=== PATIENT | male | born 1970 | race Caucasian/White ===

== ENCOUNTER 2021-04-07 21:13 | Emergency (ER) | payer SELFPAY ==
[2021-04-07 22:21] VITALS: BP 145/71; PULSE 110; RESP 16; TEMP 36.2; O2SAT 100; BMI 24.4
--- NOTE | 2021-04-07 22:49 | W.ED.WOUNDLC ---
HPI - Wound/Laceration General: Chief Complaint: Wound/Laceration Stated Complaint: R MIDDLE FINGER/CUT WHILE WHITTLING X 1WK Time Seen by Provider: 04/07/21 22:35 History of Present Illness: HPI narrative: 50-year-old male patient comes in with a laceration to his middle finger on his right hand. Incident occurred about 1 week ago and patient put some duct tape on it after he cut it while whittling a stick. Patient comes in tonight due to inability to get the tape off without hurting too much. Patient is slightly intoxicated but otherwise is doing well. Patient reports he does not remember his last tetanus shot. Review of Systems General: Reports: 10 or more systems reviewed and unremarkable except in HPI and below Skin/Breast: Reports: other (Laceration right middle finger) Physical Exam Const: COMMON NORMALS: no acute distress and patient oriented x3 GENERAL APPEARANCE: cooperative HENMT: COMMON NORMALS: normocephalic and Normal external nose present HEAD & SCALP: normal to inspection and normocephalic NOSE: Normal external nose present Eye: GENERAL EYE: appearance normal, both eyes and all related structures Neck/C-Spine: COMMON NORMALS: full ROM Chest: COMMONS NORMALS: normal inspection of the chest Resp: COMMON NORMALS: normal respiratory effort EFFORT & INSPECTION: Yes able to speak in complete sentences Cardio: COMMON NORMALS: regular rate and regular rhythm RATE: regular rate RHYTHM: regular rhythm GI: COMMON NORMALS: non-tender Extremity: COMMON NORMALS: normal to inspection Neuro: COMMON NORMALS: patient oriented x3 and moves all extremities Psych: COMMON NORMALS: mental status grossly normal and cooperative Skin: NARRATIVE SKIN EXAM: Patient has a superficial laceration to the right middle finger, after removal of the dressing skin was slightly macerated but otherwise intact with a superficial distal laceration. Procedures Nerve Block Nerve Block 1: Local Anesthetic: lidocaine 2% and with epi Amount of anesthesia used (mL): 3 Side: right Nerve Blocks: digital Procedure Successful: Yes Patient Tolerated Procedure: well Complications: none Course ED course: Under digital nerve block tape was removed from the finger. There was some maceration of the skin but no necrosis was observed. Patient has a superficial laceration that was well approximated at the tip of the finger. Vital Signs: Vital signs: Vital Signs Temperature 97.1 F L 04/07/21 22:21 Pulse Rate 110 H 04/07/21 22:21 Respiratory Rate 16 04/07/21 22:21 Blood Pressure 145/71 04/07/21 22:21 Pulse Oximetry 100 04/07/21 22:21 MDM - Wound/Laceration MDM Narrative: Medical decision making narrative: Patient comes in today with concerns of an injury that occurred last week. Patient had tape the finger up with duct tape but was able to remove the duct tape since then. Patient reports pain and discomfort to the distal finger. On exam patient has some exposure of the wound to the distal finger that seems to be well approximated with old dried blood. Patient was unable to tolerate palpation of the or removal of the tape. Differential diagnosis includes necrosis of the skin, wound infection, avulsion of the nail. After a digital block was performed the tape was removed and a noted some mild maceration of the skin without any signs of significant necrosis. Wound seemed to be distal and healed. Patient's tetanus was updated and he was placed on some cephalexin 500 twice a day for the next 7 days for any secondary infection. Patient reported understanding of care plan and need for follow-up or return to the ER. Discharge Plan Discharge Patient Disposition: Home Clinical Impression: Finger laceration Qualifiers: Encounter type: initial encounter Finger: middle finger Damage to nail status: with damage Foreign body presence: without foreign body Laterality: right Qualified Code(s): S61.312A - Laceration without foreign body of right middle finger with damage to nail, initial encounter Condition: Stable Prescriptions: New cephalexin 500 mg capsule 500 mg PO BID 7 Days Qty: 14 RF: 0 Discharge Orders: Discharge ED (Routine); Ordered 04/07/21 Ordered By: Marcello Barclay Discharge Diet: Usual diet Discharge Activity: Increase activity as tolerated Patient Instructions: Finger Laceration (ED), Opioid Safety Activity Restrictions/Additional Instructions: Keep wound clean and dry. Take antibiotics as directed. Use a Band-Aid to cover the wound if needed. Avoid using any more duct tape. Follow-up with primary care. Return to the ER for new concerns. Coding Level of Care Code ED Market Master for Lizbeth Tyson
[2021-04-07] MEDS: cephALEXin 500 mg Capsule PO (23:10)
[2021-04-07] MEDS: bacitracin ointment Pkt 1 EACH TOPICAL (23:10)
[2021-04-07] MEDS: tetanus-dipt-pertussis 0.5 mL SDV IM (23:13)
[2021-04-07 23:20] VITALS: PULSE 110; RESP 20; TEMP 36.7; O2SAT 96
== END 2021-04-07 23:21 | disposition home or self-care (01) ==
PROVIDERS: Emergency Provider Nurse Practitioner Family
DX: S61.312A Laceration without foreign body of right middle finger with damage to nail, initial encounter (principal); W26.0XXA Contact with knife, initial encounter
CPT/HCPCS: 64450; 90471; 90715; 99283

== ENCOUNTER 2021-04-09 14:54 | Emergency (ER) | payer SELFPAY ==
[2021-04-09 15:12] VITALS: BP 144/82; PULSE 108; RESP 18; TEMP 37; O2SAT 95; BMI 23.0
--- NOTE | 2021-04-09 15:32 | ED_ITS ---
Documented by User: MARY Hernandez 04/09/21 16:42 HPI - Extremity Problem General: Chief complaint: Extremity Injury, Upper Stated complaint: R hand finger pain Time Seen by Provider: 04/09/21 15:17 History of Present Illness: HPI Narrative: Swelling right middle finger into the hand worsening since visit here patient did not get antibiotics filled. Patient recently had duct tape that was on his finger that was really tight after his laceration a week ago and the finger swelled. Now is worsening with a large blister over the distal end of the finger from the MIP joint down and hand erythema extending back to the wrist area MD Complaint: extremity pain and extremity swelling Onset (ago): day(s) Pain Consistency: constant Location: right and upper extremity Severity scale (1-10): 6 Quality: aching Radiation: distal Relieving factors: nothing Associated symptoms: Reports no associated symptoms; Deny chest pain, fever(s) or rash Review of Systems Const: Denies: fever(s), chills or body aches Eyes: Denies: change in vision or blurry vision ENMT: Denies: throat pain or nasal congestion Card: Denies: chest pain or dyspnea on exertion Resp: Denies: dyspnea, productive cough or non-productive cough GI: Denies: abdominal pain, nausea or vomiting : Denies: difficulty urinating Musc: Reports: extremity pain (Right middle finger with redness extends from the distal aspect to the wris), extremity swelling, joint pain and joint sw elling Skin/Breast: Denies: rash Neuro: Denies: headache(s) Psych: Denies: anxiety or depression Edi/Lymph: Denies: easy bruising Physical Exam Const: COMMON NORMALS: no acute distress GENERAL APPEARANCE: cooperative Resp: COMMON NORMALS: normal respiratory effort Cardio: RATE: tachycardic Extremity: RIGHT UPPER EXTREMITY: Yes hand & digits (Right middle finger with extreme swelling and large blister that was draine) Right hand and digits: Yes ROM exam (Decreased range of motion joint very swollen DIP and MIP) and Yes other (Large blister was distal aspect from the DIP joint and then about) Skin: OTHER: Redness right middle finger from distal aspect of the way back to the wrist on the dorsal surface Course Vital Signs: Vital signs: Vital Signs Temperature 98.6 F 04/09/21 15:12 Pulse Rate 108 H 04/09/21 15:12 Respiratory Rate 18 04/09/21 15:12 Blood Pressure 144/82 04/09/21 15:12 Pulse Oximetry 95 04/09/21 15:12 MDM - Extremity (Nontraumatic) MDM Narrative: Medical decision making narrative: Discussed case with Dr. Rojas. He has been a call orthopedic on-call. I spoke to Dr. Howard. He advises speak to hand specialist. Lab Data: Labs: Lab Results 04/09/21 Range/Units 15:40 WBC 5.5 (4.0-10.0) 10^3/ uL RBC 3.25 L (4.1-5.3) 10^6/u L Hgb 8.2 L (11.7-16.6) g/dL Hct 26.5 L (42.0-52.0) % MCV 81.5 (80-94) fL MCH 25.2 L (28.0-34.0) pg MCHC 30.9 (30.0-36.0) g/dL RDW 23.4 H (12.1-15.1) % Plt Count 141 (130-400) 10^3/c mm MPV 11.6 H (7.4-10.4) fL Neut % (Auto) 63.7 % Lymph % (Auto) 23.6 % George % (Auto) 11.0 % Eos % (Auto) 0.7 % Baso % (Auto) 0.5 % Neut # (Auto) 3.47 (1.8-7.7) 10^3/u L Lymph # (Auto) 1.3 (0.8-4.8) 10^3/u L [place] # (Auto) 0.6 (0.2-0.9) 10^3/u L Eos # (Auto) 0.0 (0.0-0.8) 10^3/u L Baso # (Auto) 0.0 (0.0-0.1) 10^3/u L Nucleated RBC % (a uto) 0.5 % Nucleated RBCs # 0.0 /100WBC Discharge Plan Discharge Patient Disposition: Home Clinical Impression: Cellulitis of finger of right hand Condition: Stable Prescriptions: New hydrocodone-acetaminophen 5-325 mg tablet 1 tab PO TID PRN (Reason: pain) Qty: 14 RF: 0 doxycycline monohydrate 100 mg capsule 100 mg PO BID 10 Days Qty: 20 RF: 0 Discontinued cephalexin 500 mg capsule 500 mg PO BID 7 Days Qty: 14 RF: 0 Discharge Orders: Discharge ED (Routine); Ordered 04/09/21 Ordered By: Marcello Barclay Discharge Diet: Usual diet Discharge Activity: Increase activity as tolerated Patient Instructions: Cellulitis (ED), Opioid Safety Activity Restrictions/Additional Instructions: Follow-up with medical provider in 48 hours. Take medications as prescribed. Return to the ER or your medical provider if condition worsens. Please read and understand discharge instructions. If any questions ask please. Specialist will be contacting you with an appointment time for follow-up. Soak hand in warm soap water 3 times a day. Sign Out Sign Out Data: Patient Sign Out occurred on 04/09/21 at 17:02. Patient's care was discussed, and care was transferred from to Marcello Barclay. Coding Level of Care Code ED Academic Affairs Vice President for Chg Fwd Exam Expanded Problem Focused Documented by User: MARY Kapoor 04/09/21 18:09 HPI - Extremity Problem General: Chief complaint: Extremity Injury, Upper Stated complaint: R hand finger pain Time Seen by Provider: 04/09/21 15:17 Course Vital Signs: Vital signs: Vital Signs Temperature 98.6 F 04/09/21 15:12 Pulse Rate 108 H 04/09/21 15:12 Respiratory Rate 18 04/09/21 15:12 Blood Pressure 144/82 04/09/21 15:12 Pulse Oximetry 95 04/09/21 15:12 MDM - Extremity (Nontraumatic) MDM Narrative: Medical decision making narrative: 50-year-old male patient comes back today due to increased redness and swelling of a finger on the right hand. To the right middle finger there is increased redness and swelling with redness extending up to the dorsal hand. Patient has significant swelling to the hand. Cap refill is noted distally. Patient admits that he did not get the antibiotics filled on from his last visit. Differential diagnosis includes but not limited to cellulitis, tourniquet effect, tenosynovitis. X-ray of the hand noted no osteomyelitis. Patient was given 1 g of Rocephin and then we contacted hand surgeon. We talked to Dr. Lala at [facility] in [place], he recommended patient be started on warm water soaks with soapy water 3 times a day, and infused with 1 g of Vanco and continued on doxycycline outpatient. Patient should follow-up with primary care in 2 days for recheck. I reviewed this with patient who agreed to plan. We stressed the importance of getting the antibiotic this time and taking it accordingly. Patient reported understanding and agreed to plan. Laboratory values did note a white count of 5.5 patient also had some anemia with 8.2 and 26.5. I believe the anemia is probably secondary to chronic alcohol ingestion. Patient does admit to daily use of alcohol. Lab Data: Labs: Lab Results 04/09/21 Range/Units 15:40 WBC 5.5 (4.0-10.0) 10^3/ uL RBC 3.25 L (4.1-5.3) 10^6/u L Hgb 8.2 L (11.7-16.6) g/dL Hct 26.5 L (42.0-52.0) % MCV 81.5 (80-94) fL MCH 25.2 L (28.0-34.0) pg MCHC 30.9 (30.0-36.0) g/dL RDW 23.4 H (12.1-15.1) % Plt Count 141 (130-400) 10^3/c mm MPV 11.6 H (7.4-10.4) fL Neut % (Auto) 63.7 % Lymph % (Auto) 23.6 % George % (Auto) 11.0 % Eos % (Auto) 0.7 % Baso % (Auto) 0.5 % Neut # (Auto) 3.47 (1.8-7.7) 10^3/u L Lymph # (Auto) 1.3 (0.8-4.8) 10^3/u L George # (Auto) 0.6 (0.2-0.9) 10^3/u L Eos # (Auto) 0.0 (0.0-0.8) 10^3/u L Baso # (Auto) 0.0 (0.0-0.1) 10^3/u L Nucleated RBC % (a uto) 0.5 % Nucleated RBCs # 0.0 /100WBC Discharge Plan Discharge Patient Disposition: Home Clinical Impression: Cellulitis of finger of right hand Condition: Stable Prescriptions: New hydrocodone-acetaminophen 5-325 mg tablet 1 tab PO TID PRN (Reason: pain) Qty: 14 RF: 0 doxycycline monohydrate 100 mg capsule 100 mg PO BID 10 Days Qty: 20 RF: 0 Discontinued cephalexin 500 mg capsule 500 mg PO BID 7 Days Qty: 14 RF: 0 Discharge Orders: Discharge ED (Routine); Ordered 04/09/21 Ordered By: Marcello Barclay Discharge Diet: Usual diet Discharge Activity: Increase activity as tolerated Patient Instructions: Cellulitis (ED), Opioid Safety Activity Restrictions/Additional Instructions: Follow-up with medical provider in 48 hours. Take medications as prescribed. Return to the ER or your medical provider if condition worsens. Please read and understand discharge instructions. If any questions ask please. Specialist will be contacting you with an appointment time for follow-up. Soak hand in warm soap water 3 times a day. Sign Out Sign Out Data: Patient Sign Out occurred on 04/09/21 at 17:02. Patient's care was discussed, and care was transferred from to Marcello Barclay. Coding Level of Care Code ED Academic Affairs Vice President for Lizbeth Tyson Exam Expanded Problem Focused
--- NOTE | 2021-04-09 15:34 | XR_ITS ---
WS: [id number] Exam: XR hand RT min 3V* [id number] Date/Time of Exam: 04/09/2021 3:36 PM Reason For Exam: Rule out osteomyelitis No fracture or dislocation. No sign of bone destruction. Soft tissue swelling of the third finger. Mi nimal degenerative changes of the IP joints. No radiopaque soft tissue foreign bodies are seen. XR/XR hand RT min 3V* [id number] IMPRESSION: 1. No acute fracture or bone destruction. 2. Soft tissue swelling of the third finger.
[2021-04-09] MEDS: cefTRIAXone 1,000 MG in sodium chloride 0.9% (plus) 50 ML 100 MG IV (16:15)
[2021-04-09] MEDS: HYDROcodone-acetaminophen 5-325 mg Tablet 1 TAB PO ×2 (16:39→19:43)
[2021-04-09 17:15] LABS: Basophils % 0.5 %; Eosinophils % 0.7 %; Hematocrit 26.5 % (42.0-52.0); Hemoglobin 8.2 g/dL (11.7-16.6); Lymphocytes # 1.3 10^3/uL (0.8-4.8); Lymphocytes % 23.6 %; Mean Corpuscular HGB Conc 30.9 g/dL (30.0-36.0); Mean Corpuscular Hemoglobin 25.2 pg (28.0-34.0); Mean Corpuscular Volume 81.5 fL (80-94); Mean Platelet Volume 11.6 fL (7.4-10.4); Monocytes # 0.6 10^3/uL (0.2-0.9); Neutrophils # 3.47 10^3/uL (1.8-7.7); Neutrophils % 63.7 %; Nucleated Red Blood Cells % 0.5 %; Platelet Count 141 10^3/cmm (130-400); Red Blood Count 3.25 10^6/uL (4.1-5.3); Red Cell Distribution Width 23.4 % (12.1-15.1); White Blood Count 5.5 10^3/uL (4.0-10.0)
[2021-04-09] MEDS: vancomycin 1,000 MG in sodium chloride 0.9% 250 ML 250 MG IV (18:15)
[2021-04-09 19:57] VITALS: BP 146/80; PULSE 88; RESP 18; O2SAT 100
--- NOTE | 2021-04-10 10:54 | DCPLANNER ---
manager estate had message to speak with patient about getting a follow up appointment for patient with a primary care followup. manager estate is unable to call patient due to no phone number for patient.
--- NOTE | 2021-04-14 16:18 | PC.NURSE ---
unable to call in new prescription for pt based on positive blood cultures. (pt should be discontinuing the doxycycline and starting cipro 500mg PO BID *10days). No new script given because pt's demographics are homeless with no phone number
== END 2021-04-09 19:59 | disposition home or self-care (01) ==
PROVIDERS: Nurse Practitioner Family; Emergency Provider Nurse Practitioner Family
DX: L03.011 Cellulitis of right finger (principal)
CPT/HCPCS: 73130; 85025; 87070; 87077; 87186; 96365; 96367; 99284; J0696; J3370; J7050

== ENCOUNTER 2021-08-10 10:47 | Inpatient (IN) | payer MEDICAID, SELFPAY ==
[2021-08-10 10:53] VITALS: BP 131/99; PULSE 100; RESP 18; TEMP 36.6; O2SAT 99; BMI 20.3
--- NOTE | 2021-08-10 10:56 | W.ED.SOB ---
HPI - SOB/Dyspnea General: Chief Complaint: Shortness of Breath/Dyspnea Stated Complaint: SOB, CP Time Seen by Provider: 08/10/21 10:56 Source: patient Limitations: altered mental status History of Present Illness: HPI Narrative: Mr Flores is a 50-year-old gentleman with unclear past medical history who presents to the emergency department due to shortness of breath and chest pain. Upon initial arrival patient appears clinically intoxicated and endorses alcohol use. He describes a few day history of variable location chest discomfort. There are no specific provoking factors. He has associated shortness of breath he has associated with history of tobaccoism and burning sensation in his throat. Overall intensity symptoms is moderate. The course is unclear. It is unclear if the patient has had similar episodes in the past. No either identified associated symptoms, exacerbating, or alleviating factors. Supplemental information provided by patient's significant other at bedside upon arrival is that patient is a daily drinker and has significant drinking habit, he has had increased falls though these have not been witnessed, he has not had behavior changes like this in the past. Review of Systems General: Reports: ROS unobtainable due to mental status Physical Exam Narrative: EXAM NARRATIVE: GENERAL/CONSTITUTIONAL -chronically ill-appearing. No acute distress. Eyes -no scleral icterus, no conjunctival injection ENMT - Atraumatic external nose and ears. Dry mucous membranes NECK - supple. trachea midline CARDIOVASCULAR - regular rate and rhythm. RESPIRATORY -diminished to auscultation bilaterally. ABDOMEN/GI - Nontender/Nondistended. MSK - Extremities without obvious deformity or tenderness to palpation SKIN - Warm, Dry NEURO - alert and appropriately oriented. Abnormal writhing movements. Moves all extremities equally. Course ED course: - Patient was seen and evaluated by me at bedside - Patient placed on cardiac monitors, IV access obtained - Initial evaluation notable for mental status as noted above limited history. Patient has abnormal muscle movements however does move all extremities without obvious focal neurologic deficit. - Labs notable for no leukocytosis, thrombocytopenia of unclear etiology. Patient does have a contusion to the back however no obvious evidence of bleeding at this time. No acute metabolic derangement to explain patient's mental status, AST greater than ALT consistent with known alcohol abuse. Alcohol level markedly elevated and UDS positive for amphetamines. - Imaging notable for no lobar consolidation or other acute chest abnormality on x-ray. CT head negative for acute intracranial hemorrhage or other explanation to explain patient's symptoms. - Upon reevaluation patient's condition worsening with regards to behavior mental status despite Ativan, additional Ativan ordered. - Based on patient history, evaluation, labs, and imaging as interpreted the most likely cause of the patient's condition is unclear altered mental status and polysubstance abuse. Patient's mental status and behavior is not consistent with alcohol or amphetamine toxidrome and given worsening of mental status during ED stay requires further inpatient evaluation. - The results of ED evaluation were discussed with the patient including plan for admission due to requirement for level of care not available if discharged to prevent significant worsening/deterioration. -Hospitalist service contacted and agreed admit the patient. - Patient was admitted without further deterioration or significant events. Vital Signs: Vital signs: Vital Signs Temperature 98.3 F 08/14/21 11:56 Pulse Rate 68 08/14/21 11:56 Respiratory Rate 16 08/14/21 11:56 Blood Pressure 128/87 08/14/21 11:56 Pulse Oximetry 99 08/14/21 11:56 MDM - SOB/Dyspnea Medical Records: Attestation: I reviewed the patient's medical records. Lab Data: Attestation: I reviewed the patient's lab results. Labs: Lab Results 08/10/21 08/10/21 08/10/21 11:10 11:10 11:10 WBC Cancelled Corrected WBC Cancelled RBC Cancelled Hgb Cancelled Hct Cancelled MCV Cancelled MCH Cancelled MCHC Cancelled RDW Cancelled Plt Count Cancelled MPV Cancelled Gran % Cancelled Neut % (Auto) Cancelled Lymph % (Auto) Cancelled [place] % (Auto) Cancelled Eos % (Auto) Cancelled Baso % (Auto) Cancelled Neut # (Auto) Cancelled Lymph # (Auto) Cancelled [place] # (Auto) Cancelled Eos # (Auto) Cancelled Baso # (Auto) Cancelled Absolute Gran (aut o) Cancelled Nucleated RBC % (a uto) Cancelled Nucleated RBCs # Cancelled Sodium 135 mmol/L L mmol /L (136-145) Potassium 3.2 mmol/L L mmol /L (3.5-5.1) Chloride 98 mmol/L mmol/L (98-107) Carbon Dioxide 18 mmol/L L mmol/ L (22-29) Anion Gap 22.2 H (5-19) BUN 10 mg/dL mg/dL (6-20) Creatinine 0.8 mg/dL mg/dL (0.7-1.2) GFR Calculation 102.3 mL/min mL/m in (90-130) Glucose 105 mg/dL mg/dL (65-115) Calculated Osmolal ity 279 mOsm/kg L mOs m/kg (285-295) Calcium 8.2 mg/dL L mg/dL (8.5-10.5) Total Bilirubin 2.0 mg/dL H mg/dL (0.15-1.2) AST 148 U/L H U/L (0-40) ALT 31 U/L U/L (0-41) Alkaline Phosphata se 149 IU/L H IU/L (40-130) Ammonia Troponin T Baselin e 16 ng/L H ng/L (0-15) Troponin T 120 Min [place] Troponin T Total Protein 8.1 g/dL g/dL (6.6-8.7) Albumin 3.8 g/dL g/dL (3.5-5.2) Globulin 4.3 g/dL g/dL (1.3-4.6) Lipase 31 U/L U/L (13-60) Procalcitonin 0.09 ng/mL ng/mL (0-0.5) Urine Color Urine Appearance Urine pH Ur Specific Gravit y Urine Protein Urine Glucose (UA) Urine Ketones Urine Blood Urine Nitrate Urine Bilirubin Prot Sulfosalicyli c Acd Urine Urobilinogen Ur Leukocyte Theresa ase Salicylates Urine Opiates Scre en Acetaminophen Ur Barbiturates Sc reen Ur Phencyclidine S crn Ur Amphetamines Sc reen U Benzodiazepines Scrn Urine Cocaine Scre en U Marijuana (THC) Screen Ethyl Alcohol 08/10/21 08/10/21 08/10/21 12:55 12:55 12:55 WBC 4.8 10^3/uL 10^3/ uL (4.0-10.0) Corrected WBC RBC 3.94 10^6/uL L 10 ^6/uL (4.1-5.3) Hgb 9.2 g/dL L g/dL (11.7-16.6) Hct 29.4 % L % (42.0-52.0) MCV 74.6 fl L fl (80-94) MCH 23.4 pg L pg (28.0-34.0) MCHC 31.3 g/dL g/dL (30.0-36.0) RDW 24.3 % H % (12.1-15.1) Plt Count 33 10^3/cmm L 10^ 3/cmm (130-400) MPV Not Reportable Gran % Neut % (Auto) 60.9 % % Lymph % (Auto) 26.8 % % [place] % (Auto) 10.9 % % Eos % (Auto) 0.2 % % Baso % (Auto) 1.0 % % Neut # (Auto) 2.90 10^3/uL 10^3 /uL (1.8-7.7) Lymph # (Auto) 1.3 10^3/uL 10^3/ uL (0.8-4.8) [place] # (Auto) 0.5 10^3/uL 10^3/ uL (0.2-0.9) Eos # (Auto) 0.0 10^3/uL 10^3/ uL (0.0-0.8) Baso # (Auto) 0.1 10^3/uL 10^3/ uL (0.0-0.1) Absolute Gran (aut o) Nucleated RBC % (a uto) 0 % % Nucleated RBCs # 0.0 /100WBC /100W BC Sodium Potassium Chloride Carbon Dioxide Anion Gap BUN Creatinine GFR Calculation Glucose Calculated Osmolal ity Calcium Total Bilirubin AST ALT Alkaline Phosphata se Ammonia 59 umol/L umol/L (16-60) Troponin T Baselin e Troponin T 120 Min [place] 13.28 ng/L ng/L (0-15) Delta Troponin T -2.72 ABS# L ABS# (0-10) Total Protein Albumin Globulin Lipase Procalcitonin Urine Color Urine Appearance Urine pH Ur Specific Gravit y Urine Protein Urine Glucose (UA) Urine Ketones Urine Blood Urine Nitrate Urine Bilirubin Prot Sulfosalicyli c Acd Urine Urobilinogen Ur Leukocyte Theresa ase Salicylates Urine Opiates Scre en Acetaminophen Ur Barbiturates Sc reen Ur Phencyclidine S crn Ur Amphetamines Sc reen U Benzodiazepines Scrn Urine Cocaine Scre en U Marijuana (THC) Screen Ethyl Alcohol 08/10/21 08/10/21 08/10/21 12:55 13:25 13:25 WBC Corrected WBC RBC Hgb Hct MCV MCH MCHC RDW Plt Count MPV Gran % Neut % (Auto) Lymph % (Auto) [place] % (Auto) Eos % (Auto) Baso % (Auto) Neut # (Auto) Lymph # (Auto) [place] # (Auto) Eos # (Auto) Baso # (Auto) Absolute Gran (aut o) Nucleated RBC % (a uto) Nucleated RBCs # Sodium Potassium Chloride Carbon Dioxide Anion Gap BUN Creatinine GFR Calculation Glucose Calculated Osmolal ity Calcium Total Bilirubin AST ALT Alkaline Phosphata se Ammonia Troponin T Baselin e Troponin T 120 Min [place] Troponin T Total Protein Albumin Globulin Lipase Procalcitonin Urine Color Straw (Yellow) Urine Appearance Clear (CLEAR) Urine pH 8 H (5-7) Ur Specific Gravit y 1.005 (1.005-1.030) Urine Protein Neg (Negative) Urine Glucose (UA) Norm (Normal) Urine Ketones Negative (Negative) Urine Blood Neg (Negative) Urine Nitrate Negative (Negative) Urine Bilirubin Neg (Negative) Prot Sulfosalicyli c Acd Negative (Negative) Urine Urobilinogen 1 mg/dL H mg/dL (Negative) Ur Leukocyte Theresa ase Negative (Negative) Salicylates 1.7 mg/dL L mg/dL (3-10) Urine Opiates Scre en Negative ng/mL ng /mL (Negative) Acetaminophen < 5.0 ug/mL L ug/ mL (10-30) Ur Barbiturates Sc reen Negative ng/mL ng /mL (Negative) Ur Phencyclidine S crn Negative ng/mL ng /mL (Negative) Ur Amphetamines Sc reen Positive ng/mL H ng/mL (Negative) U Benzodiazepines Scrn Negative ng/mL ng /mL (Negative) Urine Cocaine Scre en Negative ng/mL ng /mL (Negative) U Marijuana (THC) Screen Negative ng/mL ng /mL (Negative) Ethyl Alcohol 309 mg/dL H* mg/d L (0-10) EKG Data^: EKG 1: Attestation: I personally reviewed and interpreted this EKG as follows: EKG Interpretation Date: 08/10/21 EKG interpretation time: 12:15 Interpretation: Twelve-lead EKG shows a regular rhythm at a rate of 87. WV interval 164, QRS duration 119, QTc 441. Normal axis. Interpretation: Sinus rhythm. EKG 2: Attestation: I personally reviewed and interpreted this EKG as follows: EKG Interpretation Date: 08/10/21 EKG interpretation time: 14:23 Interpretation: Twelve-lead EKG shows a regular rhythm with a rate of 86. WV interval 127, QRS duration 117, QTc 452. Normal axis. Interpretation: Sinus rhythm. Discharge Plan Discharge Patient Disposition: Admitted As Inpatient Admit Provider: Magdalena Lemus Condition: Stable Discharge Diet: Regular Discharge Activity: Increase activity as tolerated Coding Level of Care Code ED Mainframe Architect for Lizbeth Tyson
--- NOTE | 2021-08-10 10:59 | XR_ITS ---
WS: [id number] PORTABLE CHEST HISTORY: chest pain COMPARISON: 01/02/2017 Lungs are clear and well expanded. No pleural effusion or pneumothorax. Cardiac size: Normal. Mediastinum/Aorta: Normal mediastinum. No osseous abnormality seen. XR/XR chest 1V portable [id number] IMPRESSION: Unremarkable portable chest.
--- NOTE | 2021-08-10 11:00 | ECG_ITS ---
[facility] Test Date: 2021-08-10 Pat Name: Siva Flores Department: Room: Gender: Male Floor Care Specialist: : 1970 Requested By: Albin Cordero Order Number: [id number] Reading MD: JOHN ROBERTS Measurements Intervals [place] Rate: 87 P: 75 IA: 164 QRS: 55 QRSD: 119 T: 54 QT: 397 QTc: 478 Interpretive Statements SINUS RHYTHM WITH SINUS ARRHYTHMIA MODERATE INTRAVENTRICULAR CONDUCTION DELAY [110+ ms QRS DURATION] Compared to ECG 01/02/2017 10:30:57 Intraventricular conduction delay now present Electronically Signed On 08-10-2021 14:28:55 DIANETICIST by JOHN ROBERTS [id number]
[2021-08-10 11:20] VITALS: BP 131/99; PULSE 104; RESP 21; TEMP 36.7; O2SAT 100
[2021-08-10] MEDS: diphenhydrAMINE 50 mg/mL SDV 1mL 25 MG IVP (11:41)
[2021-08-10] MEDS: LORazepam 2 mg/mL INJ 1 mL 1 MG IVP (11:41)
[2021-08-10] MEDS: sodium chloride 0.9% 500 ML 999 ML IV (11:42)
--- NOTE | 2021-08-10 11:48 | CT_ITS ---
WS: [id number] CT CERVICAL SPINE HISTORY: falls, ams TECHNIQUE: Contiguous 2.5 mm axial imaging performed through the entire cervical spine. Sagittal and coronal reformats also performed. All CT scans at [facility] use at least one of these dose o ptimization techniques: automated exposure control; mA and/or kV adjustment per patient size (include s targeted exams where dose is matched to clinical indication); or iterative reconstruction. DLP: 749.29 mGy.cm COMPARISON: 11/24/2010. There is significant motion artifact throughout the cervical spine. Despite numerous attempts at prev enting patient removing this was unsuccessful. Grossly the alignment is within normal limits. There is mild disc space narrowing at C5-6. No obvious fractures are identified. Craniocervical junction is normally aligned. The lateral masses of C1 and C2 are aligned odontoid is intact. No significant central or foraminal stenosis is identified. Small disc protrusions would easily be ob scured with this amount of motion. There is mild central and bilateral foraminal stenosis at C5-6. CT/CT cervical spin wo con* [id number] IMPRESSION: 1. Quality of this examination is significantly degraded by motion artifact. 2. No obvious fractures are identified.
--- NOTE | 2021-08-10 11:48 | CT_ITS ---
WS: [id number] CT HEAD NONCONTRAST HISTORY: AMS TECHNIQUE: Contiguous axial imaging performed through the brain in 2.5 mm imaging. Bone and soft tiss ue windows. Sagittal and coronal reformats reviewed. All CT scans at [facility] use at least one of these dose optimization techniques: automated exposure control; mA and/or kV adjustment per pa tient size (includes targeted exams where dose is matched to clinical indication); or iterative recon struction. DLP: 803.9 mGy.cm COMPARISON: 11/24/2010. No acute intracranial hemorrhage, midline shift or mass effect. Mild atrophy is more than expected for the patient's age. Very minimal chronic microvascular ischemic disease. There is also mild bilateral cerebellar atrophy which is greater than expected for age. The cerebral and cerebellar atrophy has progressed since 11/24/2010. Ventricles: Normal size with no hydrocephalus. Paranasal sinuses: As visualized are clear. Mastoid air cells: Well pneumatized. Calvarium and scalp: Skull is intact with no soft tissue edema or swelling. CT/CT head wo con* [id number] IMPRESSION: 1. Mild atrophy within the cerebellum and cerebrum, more than expected for the patient's age. 2. No acute hemorrhage or edema.
[2021-08-10 12:02] LABS: Troponin(5th) Baseline 16 ng/L (0-15)
--- NOTE | 2021-08-10 12:17 | PC.NURSE ---
Pt coughing small amounts of blood, including a small blood clot, Dr. Cordero advised
[2021-08-10] MEDS: LORazepam 2 mg/mL INJ 1 mL IVP (12:25)
[2021-08-10 12:31] LABS: Alanine Aminotransferase 31 U/L (0-41); Albumin Level 3.8 g/dL (3.5-5.2); Alkaline Phosphatase 149 IU/L (40-130); Anion Gap 22.2 (5-19); Aspartate Amino Transferase 148 U/L (0-40); Blood Urea Nitrogen 10 mg/dL (6-20); Calcium 8.2 mg/dL (8.5-10.5); Carbon Dioxide 18 mmol/L (22-29); Chloride 98 mmol/L (98-107); Globulin 4.3 g/dL (1.3-4.6); Glomerular Filtration Rate 102.3 mL/min (90-130); Glucose 105 mg/dL (65-115); Lipase 31 U/L (13-60); Osmolality Calculated 279 mOsm/kg (285-295); Potassium 3.2 mmol/L (3.5-5.1); Sodium 135 mmol/L (136-145); Total Protein 8.1 g/dL (6.6-8.7)
[2021-08-10] MEDS: sodium chloride 0.9% 1,000 ML 999 ML IV (12:31)
[2021-08-10 12:38] LABS: Procalcitonin 0.09 ng/mL (0-0.5)
--- NOTE | 2021-08-10 13:00 | ECG_ITS ---
[facility] Test Date: 2021-08-10 Pat Name: Siva Flores Department: Room: Gender: Male Cadd Operator: : 1970 Requested By: Albin Cordero Order Number: [id number] Reading MD: JOHN ROBERTS Measurements Intervals [place] Rate: 86 P: 66 UT: 127 QRS: 40 QRSD: 117 T: 37 QT: 409 QTc: 490 Interpretive Statements SINUS RHYTHM MODERATE INTRAVENTRICULAR CONDUCTION DELAY [110+ ms QRS DURATION] Compared to ECG 08/10/2021 12:12:49 Sinus arrhythmia no longer present Electronically Signed On 08-10-2021 14:31:12 CLEAN ROOM TECHNICIAN by JOHN ROBERTS [email or web address]
[2021-08-10 13:02] LABS: Basophils # 0.1 10^3/uL (0.0-0.1); Eosinophils % 0.2 %; Hematocrit 29.4 % (42.0-52.0); Hemoglobin 9.2 g/dL (11.7-16.6); Lymphocytes # 1.3 10^3/uL (0.8-4.8); Lymphocytes % 26.8 %; Mean Corpuscular HGB Conc 31.3 g/dL (30.0-36.0); Mean Corpuscular Hemoglobin 23.4 pg (28.0-34.0); Mean Corpuscular Volume 74.6 fl (80-94); Monocytes # 0.5 10^3/uL (0.2-0.9); Monocytes % 10.9 %; Neutrophils % 60.9 %; Nucleated Red Blood Cells % 0 %; Platelet Count 33 10^3/cmm (130-400); Red Blood Count 3.94 10^6/uL (4.1-5.3); Red Cell Distribution Width 24.3 % (12.1-15.1); White Blood Count 4.8 10^3/uL (4.0-10.0)
[2021-08-10 13:09] LABS: Slide Review Slide Review Perform
[2021-08-10 13:28] LABS: Ammonia 59 umol/L (16-60)
[2021-08-10 13:43] LABS: Troponin 5 2HR 13.28 ng/L (0-15)
[2021-08-10 13:46] LABS: Troponin 5 2HR Delta -2.72 ABS# (0-10)
[2021-08-10] MEDS: folic acid 1 mg Tablet PO (13:47)
[2021-08-10] MEDS: lidocaine 1% 5 ML in potassium chloride premix 100 ML 25 ML IV (13:49)
[2021-08-10 14:27] LABS: Amphetamines Screen Urine Positive (Negative); Barbiturates Screen Urine Negative (Negative); Benzodiazepines Screen Urine Negative (Negative); Cocaine Screen Urine Negative (Negative); Opiate Screen Urine Negative (Negative); PCP Screen Urine Negative (Negative); THC Screen Urine Negative (Negative)
[2021-08-10 16:05] LABS: Salicylate 1.7 mg/dL (3-10)
[2021-08-10 16:06] LABS: Acetaminophen < 5.0 ug/mL (10-30)
[2021-08-10 16:09] LABS: Alcohol Level 309 mg/dL (0-10)
[2021-08-10] MEDS: haloperidol inj 5 mg/mL INJ 1 mL 2 MG IM (16:13)
[2021-08-10] MEDS: LORazepam 2 mg/mL INJ 1 mL IM (16:14)
[2021-08-10 16:16] LABS: Add Urine Microscopic? NO; Charge for UA Resulting for Rev
[2021-08-10 16:20] LABS: Bilirubin Urine Neg (Negative); Blood Urine Neg (Negative); Glucose Urine UA Norm (Normal); Ketones Urine Negative (Negative); Leukocyte Esterase Urine Negative (Negative); Nitrate Urine Negative (Negative); Protein Urine Neg (Negative); Specific Gravity, Urine 1.005 (1.005-1.030); Sulfosalicylic Acid Urine Negative (Negative); Urine Appearance Clear (CLEAR); Urine Color Straw (Yellow); Urobilinogen Urine 1 mg/dL (Negative); pH Urine 8 (5-7)
[2021-08-10 16:40] VITALS: BP 112/73; PULSE 104; PULSE 109; RESP 26; O2SAT 91
--- NOTE | 2021-08-10 16:42 | PC.NURSE ---
Lab calling; pts blood alcohol level resulting; 309. Dr. Velazquez updated
[2021-08-10 16:51] LABS: ABG PCO2 37.1 mmHg (35-45); ABG PH Result 7.43 (7.35-7.45); Arterial Blood Gas Hematocrit 29.1 % (42-52); Base Excess ABG 0.6 mmol/L (-2.0-2.0); Blood Gas Allen Test Pos; Blood Gas Operator Identificat CAK; Blood Gas Sample Site Radial, right; Blood Gas Sample Type Arterial; HCO3 ABG 24.8 mmol/L (22-26); PO2 ABG 48.7 mmHg (80.0-100.0)
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
[2021-08-10 18:09] LABS: INR 1.36 (0.8-1.2)
[2021-08-10 18:10] LABS: Partial Thromboplastin Time 39.2 SECONDS (23.9-36.7)
[2021-08-10 18:14] LABS: Lactic Sepsis W/Reflex 1.2 mmol/L (0.5-2.2)
--- NOTE | 2021-08-10 18:24 | PC.NURSE ---
Report called to floor, given to MICHAEL Munoz
[2021-08-10 18:30] LABS: Basophils % 0.8 %; Eosinophils % 0.4 %; Hematocrit 29.4 % (42.0-52.0); Hemoglobin 8.9 g/dL (11.7-16.6); Lymphocytes # 1.5 10^3/uL (0.8-4.8); Lymphocytes % 30.7 %; Mean Corpuscular HGB Conc 30.3 g/dL (30.0-36.0); Mean Corpuscular Hemoglobin 23.6 pg (28.0-34.0); Monocytes # 0.6 10^3/uL (0.2-0.9); Monocytes % 11.5 %; Neutrophils # 2.71 10^3/uL (1.8-7.7); Nucleated Red Blood Cells % 0 %; Platelet Count 30 10^3/cmm (130-400); Red Blood Count 3.77 10^6/uL (4.1-5.3); Red Cell Distribution Width 24.6 % (12.1-15.1); White Blood Count 4.9 10^3/uL (4.0-10.0)
[2021-08-10 18:35] LABS: Folate Level 5.2 ng/mL (4.5-32.2)
[2021-08-10 18:36] LABS: NT Pro B Type Natriuretic Pept 39 pg/mL (0-125); Procalcitonin 0.06 ng/mL (0-0.5); Thyroid Stimulating Hormone 0.55 uIU/mL (0.27-4.20); Vitamin B12 821 pg/mL (232-1245)
[2021-08-10 18:47] LABS: Alanine Aminotransferase 27 U/L (0-41); Albumin Level 3.4 g/dL (3.5-5.2); Alkaline Phosphatase 127 IU/L (40-130); Anion Gap 19.8 (5-19); Aspartate Amino Transferase 133 U/L (0-40); Blood Urea Nitrogen 7 mg/dL (6-20); Calcium 7.6 mg/dL (8.5-10.5); Carbon Dioxide 22 mmol/L (22-29); Chloride 102 mmol/L (98-107); Globulin 4.3 g/dL (1.3-4.6); Glomerular Filtration Rate 142.6 mL/min (90-130); Glucose 84 mg/dL (65-115); Lipase 21 U/L (13-60); Magnesium 1.4 mg/dL (1.7-2.3); Osmolality Calculated 287 mOsm/kg (285-295); Phosphorus 5.3 mg/dL (2.5-4.5); Potassium 3.8 mmol/L (3.5-5.1); Sodium 140 mmol/L (136-145); Total Bilirubin 1.8 mg/dL (0.15-1.2); Total Protein 7.7 g/dL (6.6-8.7)
[2021-08-10 18:53] VITALS: BP 135/84; PULSE 87; RESP 18; TEMP 37.2; O2SAT 96
[2021-08-10 20:00] VITALS: BP 151/80; PULSE 88; RESP 18; TEMP 37.1; O2SAT 96
[2021-08-10 20:00] LABS: Troponin 5 6HR 12.48 ng/L (0-15); Troponin 5 6HR Delta -3.52 ng/L (0-12)
[2021-08-10 20:59] LABS: LAB Peripheral Smear Sent for Review
[2021-08-10 21:16] LABS: HIV 1 & 2 Antibody Non-Reactive (Non-Reactiv); HIV 1 & 2 Antigen Non-Reactive (Non-Reactiv)
[2021-08-10 21:21] LABS: Rapid Plasma Reagin Syphilis Nonreactive (Nonreactive)
[2021-08-10 21:26] LABS: Hepatitis A Antibody IgM Non-Reactive (Nonreactive); Hepatitis B Core AB, Total Non-Reactive (Nonreactive); Hepatitis B Surface AB 3.5 (11.5-1000); Hepatitis B Surface Antigen Non-Reactive (Nonreactive); Hepatitis C Virus Antibody Reactive (Nonreactive)
[2021-08-10 22:12] LABS: Fibrinogen 240 mg/dL (174-498); Partial Thromboplastin Time 39.4 SECONDS (23.9-36.7)
[2021-08-10 22:15] LABS: D Dimer 1.34 ug/mIFEU (0-0.59)
[2021-08-11] VITALS (12 sets, daily range): BP systolic 126–162; BP diastolic 64–97; PULSE 74–110; RESP 17–19; TEMP 36.6–38.7; O2SAT 93–98
[2021-08-11] MEDS: LORazepam 2 mg/mL INJ 1 mL IVP ×5 (02:20→17:05)
--- NOTE | 2021-08-11 06:49 | CTR_ITS ---
PROCEDURE INFORMATION: Exam: CTA Chest With Contrast Exam date and time: 08/11/2021 6:49 AM Age: 50 years old Clinical indication: Condition or disease; Liver condition; Cirrhosis; Other: Possible pe; Patient HX: ? Pe/ cirhosis; Additional info: Rule out pe, cirhosis TECHNIQUE: Imaging protocol: Computed tomographic angiography of the chest with contrast. 3D rendering (Not supervised by radiologist): MIP and/or 3D reconstructed images were created by the technologist. Radiation optimization: All CT scans at this facility use at least one of these dose optimization techniques: automated exposure control; mA and/or kV adjustment per patient size (includes targeted exams where dose is matched to clinical indication); or iterative reconstruction. Contrast material: OMNI 350; Contrast volume: 95 ml; Contrast route: INTRAVENOUS (IV); COMPARISON: CR XR chest 1V portable [id number] 08/10/2021 11:15 AM RADIATION DOSE METRICS: Total DLP (mGy-cm): 1352.35 FINDINGS: Pulmonary arteries: Normal. No pulmonary emboli. Aorta: Unremarkable. No aortic aneurysm. No aortic dissection. Lungs: A few small calcified granulomas are seen scattered throughout the right lung. There is ground-glass opacities scattered throughout both lungs in a predominantly peripheral distribution, right greater than left. Pleural spaces: Unremarkable. No pneumothorax. No pleural effusion. Heart: Unremarkable. No cardiomegaly. No pericardial effusion. Lymph nodes: There is a small calcified lymph nodes in the right hilar region, likely sequela of previous granulomatous disease. No lymphadenopathy. Bones/joints: Unremarkable. No acute fracture. Soft tissues: Unremarkable. IMPRESSION: 1. No pulmonary embolus. 2. Commonly reported imaging features of (COVID-19) pneumonia are present. Other processes such as influenza pneumonia and organizing pneumonia, as can be seen with drug toxicity and connective tissue disease, can cause a similar imaging pattern. PROCEDURE INFORMATION: Exam: CT Abdomen And Pelvis With Contrast Exam date and time: 08/11/2021 6:49 AM Age: 50 years old Clinical indication: Condition or disease; Liver condition; Cirrhosis; Other: Possible pe; Patient HX: ? Pe/ cirhosis; Additional info: Rule out pe, cirhosis TECHNIQUE: Imaging protocol: Computed tomography of the abdomen and pelvis with contrast. Radiation optimization: All CT scans at this facility use at least one of these dose optimization techniques: automated exposure control; mA and/or kV adjustment per patient size (includes targeted exams where dose is matched to clinical indication); or iterative reconstruction. Contrast material: OMNI 350; Contrast volume: 95 ml; Contrast route: INTRAVENOUS (IV); COMPARISON: CR XR chest 1V portable [id number] 08/10/2021 11:15 AM RADIATION DOSE METRICS: Total DLP (mGy-cm): 1352.35 FINDINGS: Liver: Enlarged heterogeneous liver with volume redistribution and slight nodular contour, consistent with history of cirrhosis. There is multiple ill-defined areas of decreased attenuation in the liver, concerning for mass lesions. Gallbladder and bile ducts: Cholelithiasis is present. No pericholecystic inflammatory changes to suggest cholecystitis. Pancreas: Normal. No ductal dilation. Spleen: There is tiny calcific densities scattered throughout the spleen, likely sequela of previous granulomatous disease. The spleen is otherwise unremarkable. Adrenal glands: Normal. No mass. Kidneys and ureters: Normal. No hydronephrosis. Stomach and bowel: There is mild wall thickening of the ascending colon, in association with slight stranding of the surrounding fat, which may be secondary to colitis or portal hypertensive enteropathy. Appendix: No evidence of appendicitis. Intraperitoneal space: Trace perihepatic ascites noted. Vasculature: Gastroesophageal varices noted. Lymph nodes: Unremarkable. No enlarged lymph nodes. Urinary bladder: Unremarkable as visualized. Reproductive: Unremarkable as visualized. Bones/joints: Degenerative changes of the spine seen. Soft tissues: Unremarkable. CT/CT angio chest w abd pel w con IMPRESSION: 1. Cirrhotic liver with stigmata of portal hypertension, manifested by gastroesophageal varices and trace perihepatic ascites. 2. Ill-defined areas of decreased attenuation in the liver, concerning for mass lesions. Further evaluation with contrast enhanced abdomen MRI is recommended. 3. Inflammatory changes of the ascending colon, which may be secondary to colitis or portal hypertensive enteropathy. Radiation Dose CTDIVOL = (mGy): DLP = 1352.35~1352.35 (mGy-cm)
[2021-08-11 07:34] LABS: Basophils % 0.8 %; Eosinophils # 0.1 10^3/uL (0.0-0.8); Eosinophils % 1.1 %; Hematocrit 27.9 % (42.0-52.0); Hemoglobin 8.6 g/dL (11.7-16.6); Lymphocytes % 21.6 %; Mean Corpuscular HGB Conc 30.8 g/dL (30.0-36.0); Mean Corpuscular Hemoglobin 23.6 pg (28.0-34.0); Mean Corpuscular Volume 76.6 fl (80-94); Monocytes # 0.5 10^3/uL (0.2-0.9); Monocytes % 9.5 %; Neutrophils # 3.15 10^3/uL (1.8-7.7); Neutrophils % 66.6 %; Nucleated Red Blood Cells % 0 %; Platelet Count 36 10^3/cmm (130-400); Red Blood Count 3.64 10^6/uL (4.1-5.3); Red Cell Distribution Width 24.6 % (12.1-15.1); White Blood Count 4.7 10^3/uL (4.0-10.0)
[2021-08-11 08:29] LABS: Alanine Aminotransferase 25 U/L (0-41); Albumin Level 3.4 g/dL (3.5-5.2); Alkaline Phosphatase 108 IU/L (40-130); Anion Gap 23.4 (5-19); Aspartate Amino Transferase 130 U/L (0-40); Blood Urea Nitrogen 8 mg/dL (6-20); Calcium 7.1 mg/dL (8.5-10.5); Carbon Dioxide 17 mmol/L (22-29); Chloride 103 mmol/L (98-107); Globulin 3.9 g/dL (1.3-4.6); Glomerular Filtration Rate 142.6 mL/min (90-130); Glucose 63 mg/dL (65-115); Magnesium 1.3 mg/dL (1.7-2.3); Osmolality Calculated 286 mOsm/kg (285-295); Potassium 3.4 mmol/L (3.5-5.1); Sodium 140 mmol/L (136-145); Total Bilirubin 2.3 mg/dL (0.15-1.2); Total Protein 7.3 g/dL (6.6-8.7)
[2021-08-11 08:30] LABS: Chol HDL Ratio 3.97 mg/dL (1.0-5.00); Cholesterol 131 mg/dL (0-200); HDL Cholesterol 33 mg/dL (60-100); LDL Cholesterol Calculated 82 mg/dL (50-129); LDL HDL Ratio 2.48 RATIO (0.00-3.22); Triglycerides 79 mg/dL (0-150)
[2021-08-11 08:33] LABS: Estmated Average Glucose 100; Hemoglobin A1C 5.1 % (4.0-6.0)
[2021-08-11] MEDS: iohexol 350 mg/mL 100 mL Btl IV (08:47)
[2021-08-11] MEDS: folic acid 1 mg Tablet PO (09:00)
[2021-08-11] MEDS: multivitamin therapeutic Tablet 1 TAB PO (09:00)
[2021-08-11] MEDS: thiamine 100 mg Tablet PO (09:00)
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
[2021-08-11 13:57] LABS: Iron 68 ug/dL (59-158); Percent Saturation 21.2 % (20-50); Total Iron Binding Capacity 320 mcg/dl; Transferrin 268 mg/dL (200-360); Unsaturated Iron Binding 252 ug/dL (112-347)
[2021-08-11 14:04] LABS: Tumor Marker Alpha Fetoprotein 5.7 ng/mL (0-8.3)
[2021-08-11] MEDS: spironolactone 25 mg Tablet PO (14:20)
[2021-08-11] MEDS: lactulose oral liq 20 gm/30 mL UDC PO (14:20)
[2021-08-11] MEDS: FUROsemide 20 mg Tablet PO (14:20)
[2021-08-11] MEDS: magnesium sulfate premix 4 GM/100 ML PREMIX IV (14:29)
[2021-08-11] MEDS: potassium chloride oral liq 20 mEq/15 mL UDC 40 MEQ PO (14:42)
[2021-08-11 16:47] LABS: SARS Covid-2 Antigen Negative (Negative)
[2021-08-11 19:09] LABS: Ferritin 76 ng/mL (30-400)
[2021-08-11] MEDS: piperacillin-tazobactam 3.375 GM in sodium chloride 0.9% (plus) 50 ML IV (20:25)
[2021-08-11] MEDS: acetaminophen 325 mg Tablet 650 MG PO (22:35)
[2021-08-12] MEDS: lactulose oral liq 20 gm/30 mL UDC PO ×2 (03:34→14:48)
[2021-08-12] MEDS: piperacillin-tazobactam 3.375 GM in sodium chloride 0.9% (plus) 50 ML IV ×3 (03:34→18:50)
[2021-08-12 04:00] VITALS: BP 140/90; PULSE 73; RESP 19; TEMP 37; O2SAT 95
[2021-08-12 06:58] LABS: Basophils % 0.6 %; Eosinophils # 0.2 10^3/uL (0.0-0.8); Eosinophils % 3.8 %; Hematocrit 28.9 % (42.0-52.0); Hemoglobin 9.2 g/dL (11.7-16.6); Lymphocytes # 1.2 10^3/uL (0.8-4.8); Lymphocytes % 23.9 %; Mean Corpuscular HGB Conc 31.8 g/dL (30.0-36.0); Mean Corpuscular Volume 75.5 fl (80-94); Monocytes # 0.5 10^3/uL (0.2-0.9); Monocytes % 10.9 %; Neutrophils % 60.4 %; Nucleated Red Blood Cells % 0 %; Platelet Count 36 10^3/cmm (130-400); Red Blood Count 3.83 10^6/uL (4.1-5.3); Red Cell Distribution Width 24.5 % (12.1-15.1)
[2021-08-12 07:15] LABS: Glucose Point of Care 127 mg/dL (70-110)
[2021-08-12 07:33] VITALS: BP 120/67; PULSE 71; RESP 18; TEMP 36.9; O2SAT 97
[2021-08-12 07:34] LABS: Alanine Aminotransferase 23 U/L (0-41); Albumin Level 3.3 g/dL (3.5-5.2); Alkaline Phosphatase 138 IU/L (40-130); Anion Gap 13.3 (5-19); Aspartate Amino Transferase 108 U/L (0-40); Blood Urea Nitrogen 8 mg/dL (6-20); Carbon Dioxide 25 mmol/L (22-29); Chloride 98 mmol/L (98-107); Creatinine Clr Calc Pharmacy 131.7421; Globulin 4.4 g/dL (1.3-4.6); Glomerular Filtration Rate 119.4 mL/min (90-130); Glucose 108 mg/dL (65-115); Magnesium 1.9 mg/dL (1.7-2.3); Osmolality Calculated 275 mOsm/kg (285-295); Potassium 3.3 mmol/L (3.5-5.1); Sodium 133 mmol/L (136-145); Total Bilirubin 3.3 mg/dL (0.15-1.2); Total Protein 7.7 g/dL (6.6-8.7)
[2021-08-12] MEDS: spironolactone 25 mg Tablet PO (08:27)
[2021-08-12] MEDS: FUROsemide 20 mg Tablet PO (08:27)
[2021-08-12] MEDS: thiamine 100 mg Tablet PO (08:27)
[2021-08-12] MEDS: multivitamin therapeutic Tablet 1 TAB PO (08:27)
[2021-08-12] MEDS: folic acid 1 mg Tablet PO (08:27)
[2021-08-12 11:00] LABS: Glucose Point of Care 155 mg/dL (70-110)
[2021-08-12 11:41] VITALS: BP 140/83; PULSE 68; RESP 18; TEMP 37.6; O2SAT 97
[2021-08-12 15:14] VITALS: BP 135/72; PULSE 72; RESP 16; TEMP 36.9; O2SAT 97
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
[2021-08-12] MEDS: potassium chloride oral liq 20 mEq/15 mL UDC 40 MEQ PO (16:27)
[2021-08-12 16:44] LABS: Glucose Point of Care 174 mg/dL (70-110)
[2021-08-12 19:36] VITALS: BP 138/86; PULSE 69; RESP 18; TEMP 37; O2SAT 97
[2021-08-12 21:06] LABS: Glucose Point of Care 130 mg/dL (70-110)
[2021-08-13] VITALS (7 sets, daily range): BP systolic 113–145; BP diastolic 72–91; PULSE 61–76; RESP 16–18; TEMP 36.5–36.9; O2SAT 96–99
[2021-08-13] MEDS: lactulose oral liq 20 gm/30 mL UDC PO ×2 (03:25→16:33)
[2021-08-13] MEDS: piperacillin-tazobactam 3.375 GM in sodium chloride 0.9% (plus) 50 ML IV ×3 (03:25→18:01)
[2021-08-13 06:44] LABS: Glucose Point of Care 117 mg/dL (70-110)
[2021-08-13 07:03] LABS: Basophils % 0.5 %; Eosinophils # 0.2 10^3/uL (0.0-0.8); Eosinophils % 3.4 %; Hematocrit 33.2 % (42.0-52.0); Lymphocytes # 1.4 10^3/uL (0.8-4.8); Lymphocytes % 24.2 %; Mean Corpuscular HGB Conc 30.1 g/dL (30.0-36.0); Mean Corpuscular Hemoglobin 24.3 pg (28.0-34.0); Mean Corpuscular Volume 80.6 fl (80-94); Monocytes # 0.7 10^3/uL (0.2-0.9); Monocytes % 11.7 %; Neutrophils # 3.36 10^3/uL (1.8-7.7); Neutrophils % 59.8 %; Nucleated Red Blood Cells % 0.4 %; Platelet Count 41 10^3/cmm (130-400); Red Blood Count 4.12 10^6/uL (4.1-5.3); Red Cell Distribution Width 25.1 % (12.1-15.1); White Blood Count 5.6 10^3/uL (4.0-10.0)
[2021-08-13 07:22] LABS: Blood Urea Nitrogen 7 mg/dL (6-20); Calcium 8.1 mg/dL (8.5-10.5); Carbon Dioxide 18 mmol/L (22-29); Chloride 99 mmol/L (98-107); Glomerular Filtration Rate 227.7 mL/min (90-130); Glucose 92 mg/dL (65-115); Osmolality Calculated 268 mOsm/kg (285-295); Sodium 130 mmol/L (136-145)
[2021-08-13 07:23] LABS: Anion Gap 17.4 (5-19); Potassium 4.4 mmol/L (3.5-5.1)
--- NOTE | 2021-08-13 07:40 | US_ITS ---
WS: [id number] INDICATION: Ascites TECHNIQUE: Four-quadrant ultrasound FINDINGS: No significant ascites. Partially visualized hepatomegaly with coarse hepatic echotexture. US/US abdomen lmt fluid [id number] IMPRESSION: No significant ascites visualized
--- NOTE | 2021-08-13 09:00 | PM.PN ---
Subjective Subjective: Interval history: This is a late entry note for 08/13 No overnight events, Patient was waiting for paracentesis, however it was canceled for lack of drainable fluid, MRI of liver done as well Patient is awake and alert, afebrile Vitals/I&O/Wt Last Vital Signs Temp 97.9 F 08/14/21 04:00 Pulse 67 08/14/21 04:00 Resp 17 08/14/21 04:00 BP 116/60 08/14/21 04:00 Pulse Ox 99 08/14/21 04:00 08/13/21 08/14/21 08/14/21 22:59 06:59 14:59 Intake Total 340 / 630 650 / 1280 Balance 340 / 630 650 / 1280 Physical Exam Narrative: EXAM NARRATIVE: Patient was sitting in his bed without any active complaints or distress S1, S2 Abdomen slightly distended Hepatomegaly No active signs of acute liver decompensation No asterixis He was awake and alert Nonfocal neuro exam No signs of meningitis Awake and alert and cooperative during my evaluation Saturating well on room air Data : 08/13/21 05:58 08/13/21 05:58 A&P Assessment and plan (1) Encephalopathy: Status: Acute (2) Tremor of both hands: Status: Acute (3) Hepatitis C antibody positive in blood: Status: Acute (4) Elevated INR: Status: Acute (5) Ascites: Status: Acute (6) Portal hypertension: Status: Acute (7) Liver cirrhosis: Status: Acute (8) Ethanol causing toxic effect: Status: Acute (9) Thrombocytopenia: Status: Acute (10) Nicotine dependence: Status: Acute (11) Altered mental status: Status: Acute (12) Fall: Status: Acute (13) Amphetamine abuse: Status: Acute (14) Alcohol abuse: Status: Acute Additional A&P Information Encephalopathy related to drug abuse, alcohol intoxication Has been diagnosed with hepatitis C induced liver cirrhosis Will need outpatient therapy with Dr. 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 Paracentesis canceled as there was no drainable fluid, MRI abdomen for hepatic mass, Continue diuretics De-escalate antibiotics as he has stayed afebrile Full code Plan to discharge in next 48 hours DVT prophylaxis contraindicated secondary to thrombocytopenia No active signs of withdrawal, has mild tremors of his hands bilaterally Attestations Medical Necessity Statement*: Anticipating discharge in next 48 hours Time Spent in Patient Care: less than 15 minutes Coding Level of Care Code Acute Log Processor Operator for Chg Fwd Diagnoses Encephalopathy G93.40 Tremor of both hands R25.1 Hepatitis C antibody positive in blood R76.8 Elevated INR R79.1 Ascites R18.8 Portal hypertension K76.6 Liver cirrhosis K74.60 Ethanol causing toxic effect T51.0X1A Thrombocytopenia D69.6 Nicotine dependence F17.200 Altered mental status R41.82 Fall W19.XXXA Amphetamine abuse F15.10 Alcohol abuse F10.10
[2021-08-13] MEDS: FUROsemide 20 mg Tablet PO (09:17)
[2021-08-13] MEDS: folic acid 1 mg Tablet PO (09:17)
[2021-08-13] MEDS: thiamine 100 mg Tablet PO (09:17)
[2021-08-13] MEDS: spironolactone 25 mg Tablet PO (09:17)
[2021-08-13] MEDS: multivitamin therapeutic Tablet 1 TAB PO (09:17)
[2021-08-13 12:02] LABS: Glucose Point of Care 168 mg/dL (70-110)
[2021-08-13 12:38] LABS: Lyme AB Screen <0.90 index
[2021-08-13] MEDS: acetaminophen 325 mg Tablet 650 MG PO (12:38)
--- NOTE | 2021-08-13 13:21 | MR_ITS ---
WS: [id number] INDICATION: Abdominal pain. Liver lesions on CT. TECHNIQUE: MRI of the abdomen without and with gadolinium enhancement. Axial T2, dual Echo, axial 2-D fiesta, coronal 2-D fiesta, and pre and post gadolinium fat saturation imaging was obtained. FINDINGS: Correlation CTA August 11, 2021. Hepatomegaly with cirrhosis. Evidence of portal hypertension with perihepatic ascites. Cholelithiasis . Associated gastroesophageal varices. Diffuse low-attenuation nodules in both hepatic lobes unchanged since the recent CT. These measure 2- 3 cm in maximum dimension. These areas demonstrate decreased signal on the T2 imaging. No significant dropout on the out of phase imaging. Lesions demonstrate background parenchymal signal on the T1 jack ging. Hepatic lesions demonstrate no significant enhancement on the arterial and delayed imaging. Adrenal glands are normal. Normal renal parenchymal enhancement. A few prominent lymph nodes in the p blossom hepatis unchanged. Normal pancreas. Common bile duct appears normal. Normal renal parenchymal en hancement. Normal splenic vein. Normal GE junction. Normal caliber upper abdominal aorta. MR/MR abdomen wo/w con* [id number] IMPRESSION: 1. Hepatomegaly with diffuse low signal nodules throughout both hepatic lobes. No significant enhancement. 2. Findings most compatible with regenerative macro nodules in the setting of cirrhotic liver. Early dysplastic nodules difficult to exclude and recommend an nual surveillance MRI. 3. In addition, considering the size of the lesions and initial diagnosis cons ider ultrasound-guided parenchymal liver biopsy
[2021-08-13 17:29] LABS: Glucose Point of Care 162 mg/dL (70-110)
[2021-08-13 21:16] LABS: Glucose Point of Care 133 mg/dL (70-110)
[2021-08-13 21:34] LABS: HEP C RNA Viral Load Quant 295000 IU/mL (NOT DETECTED); HEP C RNA Viral Load Quant 5.47 Log IU/mL (NOT DETECTED)
--- NOTE | 2021-08-13 22:18 | PC.NURSE ---
Addendum entered by Giovanna Camacho RN 08/14/21 02:06: Entered on incorrect patient. Original Note: Patient did not have an IV upon my arrival on shift.
[2021-08-14] VITALS: BP 119/67; PULSE 65; RESP 17; TEMP 36.6; O2SAT 98
[2021-08-14] MEDS: piperacillin-tazobactam 3.375 GM in sodium chloride 0.9% (plus) 50 ML IV (01:55)
[2021-08-14] MEDS: LORazepam 2 mg Tablet PO (02:11)
[2021-08-14 04:00] VITALS: BP 116/60; PULSE 67; RESP 17; TEMP 36.6; O2SAT 99
[2021-08-14 06:45] LABS: Glucose Point of Care 220 mg/dL (70-110)
[2021-08-14 06:52] LABS: Basophils % 0.7 %; Eosinophils # 0.2 10^3/uL (0.0-0.8); Eosinophils % 3.5 %; Hematocrit 29.4 % (42.0-52.0); Hemoglobin 9.3 g/dL (11.7-16.6); Lymphocytes # 1.3 10^3/uL (0.8-4.8); Lymphocytes % 23.2 %; Mean Corpuscular HGB Conc 31.6 g/dL (30.0-36.0); Mean Corpuscular Hemoglobin 24.5 pg (28.0-34.0); Mean Corpuscular Volume 77.6 fl (80-94); Monocytes # 0.8 10^3/uL (0.2-0.9); Monocytes % 13.8 %; Neutrophils # 3.29 10^3/uL (1.8-7.7); Neutrophils % 58.3 %; Nucleated Red Blood Cells % 0 %; Platelet Count 75 10^3/cmm (130-400); Red Blood Count 3.79 10^6/uL (4.1-5.3); Red Cell Distribution Width 24.9 % (12.1-15.1); White Blood Count 5.7 10^3/uL (4.0-10.0)
[2021-08-14 07:18] LABS: Alanine Aminotransferase 19 U/L (0-41); Albumin Level 3.5 g/dL (3.5-5.2); Alkaline Phosphatase 134 IU/L (40-130); Anion Gap 15.9 (5-19); Aspartate Amino Transferase 72 U/L (0-40); Blood Urea Nitrogen 10 mg/dL (6-20); Calcium 7.6 mg/dL (8.5-10.5); Carbon Dioxide 18 mmol/L (22-29); Chloride 98 mmol/L (98-107); Globulin 3.7 g/dL (1.3-4.6); Glomerular Filtration Rate 142.6 mL/min (90-130); Glucose 186 mg/dL (65-115); Osmolality Calculated 270 mOsm/kg (285-295); Potassium 3.9 mmol/L (3.5-5.1); Sodium 128 mmol/L (136-145); Total Bilirubin 3.5 mg/dL (0.15-1.2); Total Protein 7.2 g/dL (6.6-8.7)
[2021-08-14 07:20] VITALS: BP 106/67; PULSE 67; RESP 16; TEMP 36.8; O2SAT 100
[2021-08-14 07:37] LABS: Quest SARS-CoV-2 RNA NOT DETECTED (NOT DETECTED)
[2021-08-14] MEDS: folic acid 1 mg Tablet PO (07:39)
[2021-08-14] MEDS: spironolactone 25 mg Tablet PO (07:39)
[2021-08-14] MEDS: FUROsemide 20 mg Tablet PO (07:39)
[2021-08-14] MEDS: multivitamin therapeutic Tablet 1 TAB PO (07:39)
[2021-08-14] MEDS: thiamine 100 mg Tablet PO (07:40)
[2021-08-14 08:01] LABS: Add RBC Morph Yes; Slide Review Slide Review Perform
[2021-08-14 08:03] LABS: Anisocytosis 1+; Dimorphic RBC 1+; Giant Platelets Trace; Ovalocytes Trace; Poikilocytosis 1+; Polychromasia Trace; RBC Morph Comp Yes; Target Cells 1+
[2021-08-14 11:26] VITALS: BP 128/87; PULSE 68; RESP 16; TEMP 36.8; O2SAT 99
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
[2021-08-14 11:56] VITALS: BP 128/87; PULSE 68; RESP 16; TEMP 36.8; O2SAT 99
[2021-08-14 12:05] LABS: Glucose Point of Care 133 mg/dL (70-110)
[2021-08-16 15:29] LABS: RMSF IGG DETECTED; RMSF IGM NOT DETECTED
[2021-08-16 17:28] LABS: E. Chaffeensis AB IGG <1:64; E. Chaffeensis AB IGM <1:20
[2021-08-17 02:53] LABS: Hepatitis C Genotype RNA 1a
== END 2021-08-14 11:56 | disposition home or self-care (01) | DRG 897 ==
LOC: ER 16:44 → MEDSURG 17:40
PROVIDERS: Admitting Provider Internal Medicine; Emergency Provider Emergency Medicine; Visit Provider Internal Medicine
DX: F10.229 Alcohol dependence with intoxication, unspecified (principal); K76.6 Portal hypertension; I85.10 Secondary esophageal varices without bleeding; E46 Unspecified protein-calorie malnutrition; K70.31 Alcoholic cirrhosis of liver with ascites; F15.10 Other stimulant abuse, uncomplicated; Y90.8 Blood alcohol level of 240 mg/100 ml or more; K72.90 Hepatic failure, unspecified without coma; B19.20 Unspecified viral hepatitis C without hepatic coma; W19.XXXA Unspecified fall, initial encounter; D69.6 Thrombocytopenia, unspecified; F17.210 Nicotine dependence, cigarettes, uncomplicated; T51.0X1A Toxic effect of ethanol, accidental (unintentional), initial encounter; E16.2 Hypoglycemia, unspecified; Z68.20 Body mass index [BMI] 20.0-20.9, adult
CPT/HCPCS: 36415; 36416; 36600; 49083; 51701; 70450; 71045; 71275; 72125; 74177; 74183; 76705; 80048; 80053; 80061; 80306; 80307; 80500; 81003; 82105; 82140; 82607; 82728; 82746; 82803; 82962; 83036; 83540; 83550; 83605; 83690; 83735; 83880; 84100; 84145; 84443; 84466; 84484; 85025; 85362; 85378; 85384; 85610; 85730; 86140; 86592; 86618; 86666; 86705; 86706; 86709; 86757; 86803; 87040; 87340; 87426; 87522; 87635; 87806; 87902; 93005; 96365; 96366; 96367; 96372; 96375; 96376; 97116; 97161; 97165; 97535; 99291; A9579; J1200; J1630; J2060; J2543; J3411; J3475; J3480; J7030; J7040; Q9967

== ENCOUNTER → 2021-08-27 10:50 | Outpatient (BNVA) | payer MEDICAID, SELFPAY | PROVIDERS: Visit Provider Nurse Practitioner Family | DX: K74.60 Unspecified cirrhosis of liver (principal); D64.9 Anemia, unspecified; K76.89 Other specified diseases of liver; K76.9 Liver disease, unspecified; Z91.89 Other specified personal risk factors, not elsewhere classified | CPT/HCPCS: 80053; 82105; 83550 ==

== ENCOUNTER → 2021-12-25 15:12 | Outpatient (BNVA) | payer MEDICAID, SELFPAY | PROVIDERS: PCP Internal Medicine; Visit Provider Internal Medicine | DX: R41.0 Disorientation, unspecified (principal) | CPT/HCPCS: 80053; 82140; 85025 ==

== ENCOUNTER 2022-01-01 17:30 | Inpatient (IN) | payer MEDICAID, SELFPAY ==
[2022-01-01 17:39] VITALS: BP 137/94; PULSE 110; RESP 19; TEMP 36.8; O2SAT 96; BMI 27.1
--- NOTE | 2022-01-01 17:59 | CTR_ITS ---
PROCEDURE INFORMATION: Exam: CT Head Without Contrast Exam date and time: 01/01/2022 6:28 PM Age: 51 years old Clinical indication: Altered mental status/memory loss; Additional info: AMS TECHNIQUE: Imaging protocol: Computed tomography of the head without contrast. Radiation optimization: All CT scans at this facility use at least one of these dose optimization techniques: automated exposure control; mA and/or kV adjustment per patient size (includes targeted exams where dose is matched to clinical indication); or iterative reconstruction. COMPARISON: CT head wo con* [id number] 08/10/2021 12:39 PM RADIATION DOSE METRICS: Total DLP (mGy-cm): 945.54 FINDINGS: Brain: There is moderate cerebral atrophy. No intracranial hemorrhage. No midline shift of brain. Preservation of crane and white matter interfaces. Cerebral ventricles: No ventriculomegaly. Paranasal sinuses: Partially visible rounded lesion within the left maxillary sinus representing mucous retention cyst or polyp. Mastoid air cells: Visualized mastoid air cells are well aerated. Bones/joints: Unremarkable. No acute fracture. Soft tissues: Unremarkable. CT/CT head wo con* [id number] IMPRESSION: 1. No acute intracranial abnormality identified. 2. No change from comparison.
--- NOTE | 2022-01-01 17:59 | XRR_ITS ---
PROCEDURE INFORMATION: Exam: XR Chest Exam date and time: 01/01/2022 6:39 PM Age: 51 years old Clinical indication: Shortness of breath; Additional info: Eval for pna TECHNIQUE: Imaging protocol: XR of the chest. Views: 1 view. COMPARISON: CR XR chest 1V portable [id number] 08/10/2021 11:15 AM FINDINGS: Lungs: Unremarkable. No consolidation. Pleural spaces: Unremarkable. No pleural effusion. No pneumothorax. Heart/Mediastinum: Unremarkable. No cardiomegaly. Bones/joints: Unremarkable. XR/XR chest 1V portable [id number] IMPRESSION: No acute findings.
--- NOTE | 2022-01-01 17:59 | CTR_ITS ---
PROCEDURE INFORMATION: Exam: CT Abdomen And Pelvis With Contrast Exam date and time: 01/01/2022 6:33 PM Age: 51 years old Clinical indication: Patient HX: Increased ammonia, hepatic encephalopathy, liver dx; Additional info: Eval for pathologies TECHNIQUE: Imaging protocol: Computed tomography of the abdomen and pelvis with contrast. Radiation optimization: All CT scans at this facility use at least one of these dose optimization techniques: automated exposure control; mA and/or kV adjustment per patient size (includes targeted exams where dose is matched to clinical indication); or iterative reconstruction. Contrast material: OMNI 350; Contrast volume: 95 ml; Contrast route: INTRAVENOUS (IV); COMPARISON: MR abdomen wo/w con* [id number] 08/13/2021 10:48 AM RADIATION DOSE METRICS: Total DLP (mGy-cm): 1457.58 FINDINGS: Lungs: Right lower lobe calcified granuloma. Liver: Diffusely inhomogenous cirrhotic appearing liver. No focal lesion identified. Gallbladder and bile ducts: Small calcified stones in the gallbladder. Mild gallbladder wall enhancement with a small amount of pericholecystic fluid. Pancreas: Normal. No ductal dilation. Spleen: Normal. No splenomegaly. Adrenal glands: Normal. No mass. Kidneys and ureters: Normal. No hydronephrosis. Stomach and bowel: The stomach is decompressed and within normal limits. Appendix: No evidence of appendicitis. Intraperitoneal space: Mild mesenteric edema. Trace fluid in the pericolic gutters. No free peritoneal air. Arteries: Unremarkable. No abdominal aortic aneurysm. Veins: Recanalized umbilical vein. Splenic hilar and gastroesophageal varices. Lymph nodes: Unremarkable. No enlarged lymph nodes. Urinary bladder: Unremarkable as visualized. Reproductive: Unremarkable as visualized. Bones/joints: Unremarkable. No acute fracture. Soft tissues: Small fat containing inguinal hernias. Small fat containing umbilical hernia. 1.7 cm density in the subcutaneous fat of the right buttock regions most likely a small contusion or hematoma. CT/CT abdomen pelvis w con* [id number] IMPRESSION: 1. Inhomogenous cirrhotic liver. 2. Portal venous hypertension with splenic hilar and gastroesophageal varices. 3. Mild gallbladder wall enhancement with pericholecystic fluid. Cholecystitis is not excluded.
--- NOTE | 2022-01-01 18:08 | W.ED.GENADLT ---
HPI - General Adult General: Chief complaint: Altered Mental Status Stated complaint: Amonia levels are high Time Seen by Provider: 01/01/22 17:59 History of Present Illness: Patient is a 51-year-old male with history of cirrhosis secondary to alcohol abuse and hepatitis C presenting to the emergency room for increasing confusion for the last 3 weeks. The last 3 days patient has been stuck at home has been unable to take care of himself. Patient drinks alcohol daily. Per , patient has been lying bedside reporting that he is feels like his leg is weak and has not been able to get up. Patient appears to be more confused and disoriented in the last few days. Patient was recently started on Rifaxan by Dr. Torres without any improvement in symptoms. Patient's talked with Dr. Grider today was told to bring patient to the emergency room for further evaluation of acute hepatic encephalopathy. denies any fever chills, abdominal pain, nausea/vomiting, diarrhea melena or hematochezia. denies any hematemesis. Onset:chronically 3 weeks, acutely x 3 days Duration:ongoing Location:home Severity:moderate Associated symptoms: Deny chest pain, dyspnea, nausea, rash, palpitations or vomiting Review of Systems Const: Denies: fever(s) or chills Eyes: Denies: change in vision ENMT: Denies: mouth pain Card: Denies: chest pain or palpitations Resp: Denies: dyspnea or non-productive cough GI: Denies: abdominal pain, nausea, vomiting or diarrhea : Denies: dysuria Musc: Denies: extremity pain Skin/Breast: Denies: rash or new lesions Neuro: Reports: other (+confusion); Denies: weakness in extremities Psych: Reports: other (Normal mood) Edi/Lymph: Denies: easy bruising PFS ED PFSH: Medical History (Updated 01/01/22 @ 19:11 by Stephy Celis MD) Alcohol abuse Amphetamine abuse Ascites Cirrhosis Elevated d-dimer Elevated INR Portal hypertension Social History Smoking and tobacco status: current every day smoker Physical Exam Const: COMMON NORMALS: alert HENMT: COMMON NORMALS: atraumatic HEAD & SCALP: atraumatic MOUTH: moist mucous membranes abnormal Eye: COMMON NORMALS: EOMs intact bilaterally and conjunctivae normal CONJUNCTIVA: Yes conjunctivae normal Neck/C-Spine: COMMON NORMALS: full ROM and supple Resp: COMMON NORMALS: normal respiratory effort and clear to auscultation bilaterally AUSCULTATION: clear to auscultation bilaterally Cardio: RATE: tachycardic GI: COMMON NORMALS: Soft to palpation and non-tender PALPATION: Yes Soft to palpation OTHER: +Mild abdominal distension, no focal TTP. NO guarding rebound, guarding, rigidity. No CVA tenderness to percussion. Neg Khan/Neg McBurney's point tenderness, no suprabupic tenderness to palpation. Extremity: COMMON NORMALS: full ROM Neuro: SENSORIUM/ORIENTATION: Yes alert MOTOR EXAM: No Abnormal motor strength present and Other motor observations present (no focal motor deficits) Psych: COMMON NORMALS: speech normal SPEECH: Yes normal speech MOOD & AFFECT: Yes euthymic mood Course Vital Signs: Vital signs: Vital Signs Temperature 98.2 F 01/01/22 17:39 Pulse Rate 110 H 01/01/22 17:39 Respiratory Rate 19 H 01/01/22 17:39 Blood Pressure 137/94 01/01/22 17:39 Pulse Oximetry 96 01/01/22 17:39 MDM - General Adult Medical Decision Making 51-year-old male with a history of cirrhosis, hepatitis C, chronic alcohol use presenting to the emergency room concern for acutely worsening increasing confusion last 3 during the setting of worsening confusion x3 weeks. On physical exam, patient has mild abdominal distention. No guarding rebound tenderness or focal abdominal tenderness palpation. Patient is notably tachycardic and dry mucous membrane. No signs of alcohol withdrawal currently. Creatinine within normal limit. Ammonia of 43. CT head negative for any acute finding. CT of head was negative for any acute pathologies. X-ray chest not showing signs of pneumonia. White count 4.6. Patient will be admitted to the hospital for acute confusion altered mental status. Disposition: admission Lab Data : 01/01/22 18:15 01/01/22 18:15 Radiology Impressions Abdomen/Pelvis CT 01/01/22 17:59 IMPRESSION: 1. Inhomogenous cirrhotic liver. 2. Portal venous hypertension with splenic hilar and gastroesophageal varices. 3. Mild gallbladder wall enhancement with pericholecystic fluid. Cholecystitis is not excluded. Head CT 01/01/22 17:59 IMPRESSION: 1. No acute intracranial abnormality identified. 2. No change from comparison. Laboratory Results WBC 4.6 10^3/uL (4.0-10.0) 01/01/22 18:15 RBC 3.91 10^6/uL (4.1-5.3) L 01/01/22 18:15 Hgb 11.1 g/dL (11.7-16.6) L 01/01/22 18:15 Hct 34.1 % (42.0-52.0) L 01/01/22 18:15 MCV 87.2 fl (80-94) 01/01/22 18:15 MCH 28.4 pg (28.0-34.0) 01/01/22 18:15 MCHC 32.6 g/dL (30.0-36.0) 01/01/22 18:15 RDW 21.2 % (12.1-15.1) H 01/01/22 18:15 Plt Count 32 10^3/cmm (130-400) L 01/01/22 18:15 MPV Not Reportable 01/01/22 18:15 Neut % (Auto) 54.0 % 01/01/22 18:15 Lymph % (Auto) 33.6 % 01/01/22 18:15 Henry % (Auto) 7.6 % 01/01/22 18:15 Eos % (Auto) 2.0 % 01/01/22 18:15 Baso % (Auto) 1.7 % 01/01/22 18:15 Neut # (Auto) 2.48 10^3/uL (1.8-7.7) 01/01/22 18:15 Lymph # (Auto) 1.5 10^3/uL (0.8-4.8) 01/01/22 18:15 Henry # (Auto) 0.4 10^3/uL (0.2-0.9) 01/01/22 18:15 Eos # (Auto) 0.1 10^3/uL (0.0-0.8) 01/01/22 18:15 Baso # (Auto) 0.1 10^3/uL (0.0-0.1) 01/01/22 18:15 Nucleated RBC % (auto) 0 % 01/01/22 18:15 Nucleated RBCs # 0.0 /100WBC 01/01/22 18:15 Sodium 138 mmol/L (136-145) 01/01/22 18:15 Potassium 4.3 mmol/L (3.5-5.1) 01/01/22 18:15 Chloride 99 mmol/L (98-107) 01/01/22 18:15 Carbon Dioxide 28 mmol/L (22-29) 01/01/22 18:15 Anion Gap 15.3 (5-19) 01/01/22 18:15 BUN 6 mg/dL (6-20) 01/01/22 18:15 Creatinine 0.5 mg/dL (0.7-1.2) L 01/01/22 18:15 GFR Calculation 175.3 mL/min (90-130) H 01/01/22 18:15 Glucose 207 mg/dL (65-115) H 01/01/22 18:15 Calculated Osmolality 290 mOsm/kg (285-295) 01/01/22 18:15 Calcium 8.4 mg/dL (8.5-10.5) L 01/01/22 18:15 Total Bilirubin 2.7 mg/dL (0.15-1.2) H 01/01/22 18:15 AST 157 U/L (0-40) H 01/01/22 18:15 ALT 24 U/L (0-41) 01/01/22 18:15 Alkaline Phosphatase 214 IU/L (40-130) H 01/01/22 18:15 Ammonia 43 umol/L (16-60) 01/01/22 18:15 Total Protein 9.5 g/dL (6.6-8.7) H 01/01/22 18:15 Albumin 3.3 g/dL (3.5-5.2) L 01/01/22 18:15 Globulin 6.2 g/dL (1.3-4.6) H 01/01/22 18:15 Lipase 66 U/L (13-60) H 01/01/22 18:15 Imaging Data Other Imaging: Radiologist's impression: [address] [address] [address] Scan Report Signed Patient: Siva Flores Unit #: [id number] : 1970 Age/Sex: 51 / M ADM Date: 01/01/22 Loc: ER Room/Bed: Attending Dr: Ordering Provider/Ordering MD: Stephy Celis MD Date of Service: 01/01/22 Procedure(s): CT head wo con* [id number] Accession Number(s): [id number] Report Number: [id number] PROCEDURE INFORMATION: Exam: CT Head Without Contrast Exam date and time: 01/01/2022 6:28 PM Age: 51 years old Clinical indication: Altered mental status/memory loss; Additional info: AMS TECHNIQUE: Imaging protocol: Computed tomography of the head without contrast. Radiation optimization: All CT scans at this facility use at least one of these dose optimization techniques: automated exposure control; mA and/or kV adjustment per patient size (includes targeted exams where dose is matched to clinical indication); or iterative reconstruction. COMPARISON: CT head wo con* [id number] 08/10/2021 12:39 PM RADIATION DOSE METRICS: Total DLP (mGy-cm): 945.54 FINDINGS: Brain: There is moderate cerebral atrophy. No intracranial hemorrhage. No midline shift of brain. Preservation of rcane and white matter interfaces. Cerebral ventricles: No ventriculomegaly. Paranasal sinuses: Partially visible rounded lesion within the left maxillary sinus representing mucous retention cyst or polyp. Mastoid air cells: Visualized mastoid air cells are well aerated. Bones/joints: Unremarkable. No acute fracture. Soft tissues: Unremarkable. CT/CT head wo con* [id number] IMPRESSION: 1. No acute intracranial abnormality identified. 2. No change from comparison. ? Dictated By: Darnell Hutchins Signed By: Darnell Hutchins Signed Date/Time: 01/01/22 190 DD/ [address] [address] XRay Report Signed Patient: Siva Flores Unit #: [id number] : 1970 Age/Sex: 51 / M ADM Date: 01/01/22 Loc: ER Room/Bed: Attending Dr: Ordering Provider/Ordering MD: Stephy Celis MD Date of Service: 01/01/22 Procedure(s): XR chest 1V portable [id number] Accession Number(s): [id number] Report Number: [id number] PROCEDURE INFORMATION: Exam: XR Chest Exam date and time: 01/01/2022 6:39 PM Age: 51 years old Clinical indication: Shortness of breath; Additional info: Eval for pna TECHNIQUE: Imaging protocol: XR of the chest. Views: 1 view. COMPARISON: CR XR chest 1V portable [id number] 08/10/2021 11:15 AM FINDINGS: Lungs: Unremarkable. No consolidation. Pleural spaces: Unremarkable. No pleural effusion. No pneumothorax. Heart/Mediastinum: Unremarkable. No cardiomegaly. Bones/joints: Unremarkable. XR/XR chest 1V portable [id number] IMPRESSION: No acute findings. ? Dictated By: Darnell Hutchins Signed By: Darnell Hutchins Signed Date/Time: 01/01/221910 DD/ [email or web address] [address] [address] Scan Report Signed Patient: Siva Flores Unit #: [id number] : 1970 Age/Sex: 51 / M ADM Date: 01/01/22 Loc: ER Room/Bed: Attending Dr: Ordering Provider/Ordering MD: Stephy Celis MD Date of Service: 01/01/22 Procedure(s): CT abdomen pelvis w con* [id number] Accession Number(s): [id number] Report Number: [id number] PROCEDURE INFORMATION: Exam: CT Abdomen And Pelvis With Contrast Exam date and time: 01/01/2022 6:33 PM Age: 51 years old Clinical indication: Patient HX: Increased ammonia, hepatic encephalopathy, liver dx; Additional info: Eval for pathologies TECHNIQUE: Imaging protocol: Computed tomography of the abdomen and pelvis with contrast. Radiation optimization: All CT scans at this facility use at least one of these dose optimization techniques: automated exposure control; mA and/or kV adjustment per patient size (includes targeted exams where dose is matched to clinical indication); or iterative reconstruction. Contrast material: OMNI 350; Contrast volume: 95 ml; Contrast route: INTRAVENOUS (IV);? COMPARISON: MR abdomen wo/w con* [id number] 08/13/2021 10:48 AM RADIATION DOSE METRICS: Total DLP (mGy-cm): 1457.58 FINDINGS: Lungs: Right lower lobe calcified granuloma. Liver: Diffusely inhomogenous cirrhotic appearing liver. No focal lesion identified. Gallbladder and bile ducts: Small calcified stones in the gallbladder. Mild gallbladder wall enhancement with a small amount of pericholecystic fluid. Pancreas: Normal. No ductal dilation. Spleen: Normal. No splenomegaly. Adrenal glands: Normal. No mass. Kidneys and ureters: Normal. No hydronephrosis. Stomach and bowel: The stomach is decompressed and within normal limits. Appendix: No evidence of appendicitis. Intraperitoneal space: Mild mesenteric edema. Trace fluid in the pericolic gutters. No free peritoneal air. Arteries: Unremarkable. No abdominal aortic aneurysm. Veins: Recanalized umbilical vein. Splenic hilar and gastroesophageal varices. Lymph nodes: Unremarkable. No enlarged lymph nodes. Urinary bladder: Unremarkable as visualized. Reproductive: Unremarkable as visualized. Bones/joints: Unremarkable. No acute fracture. Soft tissues: Small fat containing inguinal hernias. Small fat containing umbilical hernia. 1.7 cm density in the subcutaneous fat of the right buttock regions most likely a small contusion or hematoma. CT/CT abdomen pelvis w con* [id number] IMPRESSION: 1. Inhomogenous cirrhotic liver. 2. Portal venous hypertension with splenic hilar and gastroesophageal varices. 3. Mild gallbladder wall enhancement with pericholecystic fluid.? Cholecystitis is not excluded.? ? Dictated By: Tashi Marcelo Signed By: Tashi Marcelo Signed Date/Time: 01/01/221904 DD/ 183 Discharge Plan Discharge Patient Disposition: Admitted As Inpatient Clinical Impression: Acute confusion Condition: Stable Coding Level of Care Code ED Gifted Teacher for Chg Fwd Exam Comprehensive
[2022-01-01] MEDS: sodium chloride 0.9% 1,000 ML 999 ML IV (18:17)
[2022-01-01 18:25] LABS: Basophils # 0.1 10^3/uL (0.0-0.1); Basophils % 1.7 %; Eosinophils # 0.1 10^3/uL (0.0-0.8); Hematocrit 34.1 % (42.0-52.0); Hemoglobin 11.1 g/dL (11.7-16.6); Lymphocytes # 1.5 10^3/uL (0.8-4.8); Lymphocytes % 33.6 %; Mean Corpuscular HGB Conc 32.6 g/dL (30.0-36.0); Mean Corpuscular Hemoglobin 28.4 pg (28.0-34.0); Mean Corpuscular Volume 87.2 fl (80-94); Monocytes # 0.4 10^3/uL (0.2-0.9); Monocytes % 7.6 %; Neutrophils # 2.48 10^3/uL (1.8-7.7); Nucleated Red Blood Cells % 0 %; Platelet Count 32 10^3/cmm (130-400); Red Blood Count 3.91 10^6/uL (4.1-5.3); Red Cell Distribution Width 21.2 % (12.1-15.1); White Blood Count 4.6 10^3/uL (4.0-10.0)
[2022-01-01 18:42] LABS: Alanine Aminotransferase 24 U/L (0-41); Albumin Level 3.3 g/dL (3.5-5.2); Alkaline Phosphatase 214 IU/L (40-130); Anion Gap 15.3 (5-19); Aspartate Amino Transferase 157 U/L (0-40); Blood Urea Nitrogen 6 mg/dL (6-20); Calcium 8.4 mg/dL (8.5-10.5); Carbon Dioxide 28 mmol/L (22-29); Chloride 99 mmol/L (98-107); Globulin 6.2 g/dL (1.3-4.6); Glomerular Filtration Rate 175.3 mL/min (90-130); Glucose 207 mg/dL (65-115); Lipase 66 U/L (13-60); Osmolality Calculated 290 mOsm/kg (285-295); Potassium 4.3 mmol/L (3.5-5.1); Sodium 138 mmol/L (136-145); Total Bilirubin 2.7 mg/dL (0.15-1.2); Total Protein 9.5 g/dL (6.6-8.7)
[2022-01-01 18:43] LABS: Ammonia 43 umol/L (16-60)
[2022-01-01] MEDS: iohexol 350 mg/mL 100 mL Btl IV (18:46)
[2022-01-01 19:09] VITALS: BP 158/129; PULSE 113; RESP 16; O2SAT 98
--- NOTE | 2022-01-01 19:15 | P.HP_ITS ---
Providers/Chief Complaint Primary Care Provider: Howard Grider MD Chief Complaint: Amonia levels are high History of Present Illness Siva Flores is a 51 year old male who was seen last year for acute metabolic encephalopathy related to alcohol intoxication, he was also diagnosed with liver cirrhosis related to alcohol and new diagnosis of hepatitis C, he was not able to follow-up with as a PCP, appointment was set up with Dr. Grider, for hepatic nodule alpha-fetoprotein was requested which was unremarkable, he has significant portal hypertension, he was given Levaquin, lactulose and nadolol. MRI abdomen did not show hepatic mass however findings are consistent with liver cirrhosis. When I evaluated the patient in the ER he was awake, not confused at all, he was able to tell me that he lives alone and is still drinking alcohol. He denies current use of methamphetamine on a daily basis, his last drink was 48 hours ago, he is denying chest pain, shortness of breath, vomiting, diarrhea. He is saying that there is a friend who would check up on him he does not want to go to any senior living. He is not complaining of any new complaints at the time my evaluation. Patient is not able to take care of himself, he does not have home health services. Ammonia level not significantly high, patient has unkept appearance, afebrile hemodynamically stable hypertensive and tachycardic Imaging consistent with portal hypertension I have requested alcohol level which came back significantly high, Alcohol-related, thrombocytopenia Review of Systems Const: Reports: chills, body aches and fatigue Eyes: Denies: change in vision ENMT: Denies: throat pain Card: Denies: chest pain Resp: Denies: dyspnea GI: Denies: abdominal pain : Denies: flank pain Musc: Denies: neck pain Skin/Breast: Denies: rash Neuro: Denies: headache(s) Psych: Denies: anxiety Endo: Denies: polyuria Edi/Lymph: Denies: easy bruising All/Imm: Denies: urticaria Medications/Allergies Home Medications Medication Instructions Recorded Confirmed Last Taken Type rifaximin 200 mg tablet (Xifaxan) 400 mg PO BID #60 tab 12/25/21 01/01/22 Unknown Rx Allergies Allergy/AdvReac Type Severity Reaction Status Date / Time No Known Allergies Allergy Verified 01/01/22 19:24 PFSH Acute PFSH: Medical History Alcohol abuse Amphetamine abuse Ascites Cirrhosis Elevated d-dimer Elevated INR Portal hypertension Surgical History (Updated 01/01/22 @ 21:02 by Onel Garcia MD) H/O skin graft No pertinent past surgical history Family History Other Family history unknown Social History Smoking and tobacco status: current every day smoker Alcohol intake: current Vitals/I&O/Wt Last Vital Signs Temp 98.2 F 01/01/22 17:39 Pulse 113 H 01/01/22 19:09 Resp 16 01/01/22 19:09 BP 158/129 01/01/22 19:09 Pulse Ox 98 01/01/22 19:09 Weight last 48 hrs Weight 90.718 kg Physical Exam Narrative: Unkempt appearance male who appears more than stated age No abdominal pain Abdomen is nondistended Nontender Multiple skin grafts noted Onychomycosis S1, S2 Nonfocal neuro exam Tachycardia No audible stridor or wheezing Saturating well on room air Patient is awake and alert NIH 0 Looks dehydrated Data : 01/01/22 18:15 01/01/22 18:15 A&P Assessment and plan (1) Hepatic encephalopathy: Status: Acute (2) Delirium: Status: Acute (3) Nodule on liver: Status: Chronic (4) Hepatitis C antibody positive in blood: Status: Acute (5) Liver cirrhosis: Status: Chronic Plan Delirium related to alcohol intoxication Endorsing drinking alcohol on daily basis Will check drug screen Ammonia level within normal range He is awake and alert Asterixis negative His symptoms are related to active alcohol abuse Start thiamine, folic acid Would use phenobarbital if needed For autonomic dysfunction related to alcohol abuse would use metoprolol Patient lives alone, refusing senior living placement, currently reevaluate in the morning Hepatitis C, untreated, referral was given to see Dr. Grider outpatient Cardiac diet Continue ceftriaxone for portal hypertension He was not given Lasix or spironolactone as there was no remarkable ascites We will keep him on rifaximin and lactulose Full code DVT prophylaxis contraindicated because of thrombocytopenia Thrombocytopenia related to alcohol abuse Attestations Medical Necessity Statement*: Delirium related to alcohol abuse, he might need more than 2 midnights in the hospital for monitoring of his symptoms, might need senior living placement Time Spent in Patient Care: 35mins Coding Level of Care Code Acute Load Manager for Lizbeth Tyson Diagnoses Hepatic encephalopathy K72.90 Delirium R41.0 Nodule on liver K76.89 Hepatitis C antibody positive in blood R76.8 Liver cirrhosis K74.60
[2022-01-01 19:57] LABS: Protein Urine Trace (Negative); Urine Appearance Clear (CLEAR); Urine Color Dark Yellow (Yellow); pH Urine 8 (5-7)
[2022-01-01 19:58] LABS: Bilirubin Urine 1+ (Negative); Blood Urine Neg (Negative); Glucose Urine UA Norm (Normal); Ketones Urine Negative (Negative); Leukocyte Esterase Urine Negative (Negative); Nitrate Urine Negative (Negative); Urobilinogen Urine 8 mg/dL (Negative)
[2022-01-01 20:01] LABS: Add Urine Microscopic? YES; Sulfosalicylic Acid Urine Negative (Negative)
[2022-01-01 20:03] LABS: Amphetamines Screen Urine Negative (Negative); Barbiturates Screen Urine Negative (Negative); Benzodiazepines Screen Urine Positive (Negative); Cocaine Screen Urine Negative (Negative); Opiate Screen Urine Negative (Negative); PCP Screen Urine Negative (Negative); THC Screen Urine Negative (Negative)
[2022-01-01 20:05] LABS: Amorphous Sediment Urine TRACE /hpf; Bacteria Urine 1+ /hpf; Other Casts Urine N /lpf; Other Crystals Urine N /hpf; Other Sediment, Urine N; RBC Urine 0-4 /hpf (0-2); Renal Epithelial Cells Urine N /hpf; Squamous Epithelial Cell Urine 0-4 /hpf (0-5); Uric Acid Crystals Urine N /hpf; WBC Urine 0-4 /hpf (0-5)
[2022-01-01 20:06] LABS: Add Urine Culture? No
[2022-01-01 20:39] LABS: Procalcitonin 0.07 ng/mL (0-0.5)
[2022-01-01 20:45] LABS: Alcohol Level 448 mg/dL (0-10)
[2022-01-01] MEDS: sodium chloride 0.9% 1,000 ML 100 ML IV (20:48)
[2022-01-01 21:10] VITALS: BP 149/88; PULSE 99; RESP 17; TEMP 36.7; O2SAT 95
[2022-01-01 21:24] VITALS: BP 155/99; PULSE 101; RESP 16; O2SAT 96
[2022-01-01 21:29] VITALS: BMI 24.5
[2022-01-01] MEDS: metoprolol tartrate 25 mg Tablet PO (22:12)
[2022-01-02] VITALS: BP 119/78; PULSE 82; RESP 17; TEMP 36.9; O2SAT 95
[2022-01-02 03:10] VITALS: BP 109/72; PULSE 84; RESP 17; TEMP 36.9; O2SAT 97
--- NOTE | 2022-01-02 05:19 | NUR.SHIFT ---
Patient oriented to self and place this shift. Rested in bed. Continent and void via urinal at bedside and also ambulated into bathroom to have bm. No complaints of any pain made since admission. CIWA done per orders. Vital signs have been stable, room air. IV in left antecubital is saline locked. Did use walker with ambulation due to unsteady gait.
[2022-01-02 06:02] LABS: Basophils # 0.1 10^3/uL (0.0-0.1); Basophils % 1.5 %; Eosinophils # 0.1 10^3/uL (0.0-0.8); Eosinophils % 2.3 %; Hematocrit 30.7 % (42.0-52.0); Hemoglobin 9.9 g/dL (11.7-16.6); Lymphocytes # 1.6 10^3/uL (0.8-4.8); Mean Corpuscular HGB Conc 32.2 g/dL (30.0-36.0); Mean Corpuscular Hemoglobin 28.8 pg (28.0-34.0); Mean Corpuscular Volume 89.2 fl (80-94); Monocytes # 0.5 10^3/uL (0.2-0.9); Monocytes % 9.8 %; Neutrophils # 2.43 10^3/uL (1.8-7.7); Neutrophils % 51.6 %; Nucleated Red Blood Cells % 0 %; Platelet Count 32 10^3/cmm (130-400); Red Blood Count 3.44 10^6/uL (4.1-5.3); Red Cell Distribution Width 21.2 % (12.1-15.1); White Blood Count 4.7 10^3/uL (4.0-10.0)
[2022-01-02 06:29] LABS: Alanine Aminotransferase 21 U/L (0-41); Alkaline Phosphatase 174 IU/L (40-130); Anion Gap 14.8 (5-19); Aspartate Amino Transferase 145 U/L (0-40); Blood Urea Nitrogen 5 mg/dL (6-20); Calcium 7.8 mg/dL (8.5-10.5); Carbon Dioxide 25 mmol/L (22-29); Chloride 100 mmol/L (98-107); Globulin 5.3 g/dL (1.3-4.6); Glomerular Filtration Rate 226.8 mL/min (90-130); Glucose 103 mg/dL (65-115); Magnesium 1.6 mg/dL (1.7-2.3); Osmolality Calculated 280 mOsm/kg (285-295); Potassium 3.8 mmol/L (3.5-5.1); Sodium 136 mmol/L (136-145); Total Bilirubin 2.6 mg/dL (0.15-1.2); Total Protein 8.3 g/dL (6.6-8.7)
[2022-01-02 07:06] LABS: Add RBC Morph Yes; Slide Review Slide Review Perform
[2022-01-02 07:07] LABS: Pathology Refferal No; Poikilocytosis Trace; RBC Morph Comp Yes; Target Cells 1+
[2022-01-02 07:32] VITALS: BP 134/83; PULSE 73; TEMP 36.9; O2SAT 96
[2022-01-02] MEDS: cefTRIAXone 1,000 MG in sodium chloride 0.9% (plus) 50 ML 100 MG IV (09:05)
[2022-01-02] MEDS: multivitamin therapeutic Tablet 1 TAB PO (09:05)
[2022-01-02] MEDS: folic acid 1 mg Tablet PO (09:05)
[2022-01-02] MEDS: lactulose oral liq 20 gm/30 mL UDC PO (09:05)
[2022-01-02] MEDS: thiamine 100 mg Tablet PO (09:09)
[2022-01-02] MEDS: metoprolol tartrate 25 mg Tablet PO (09:10)
[2022-01-02] MEDS: PHENobarbital 32.4 mg Tablet 97.2 MG PO (09:36)
[2022-01-02] MEDS: ondansetron 2 mg/ML SDV 2 mL 4 MG IVP (09:36)
[2022-01-02 12:00] VITALS: BP 133/83; PULSE 72; RESP 13; O2SAT 93
--- NOTE | 2022-01-02 12:14 | P.DS_ITS ---
Discharge Providers Date of Admission: 01/01/22 19:15 Date of Discharge: January 02, 2022 Attending Provider at Admission: Onel Garcia MD Attending Provider at Discharge: Adam Morfin MD Primary Care Provider: Howard Grider MD Diagnoses at Discharge Discharge Diagnosis (1) Hepatic encephalopathy: Status: Acute (2) Delirium: Status: Acute (3) Nodule on liver: Status: Chronic (4) Hepatitis C antibody positive in blood: Status: Acute (5) Liver cirrhosis: Status: Chronic Reason for Visit Reason for Visit: Amonia levels are high Brief History: History as per HPI: Siva Flores is a 51 year old male who was seen last year for acute metabolic encephalopathy related to alcohol intoxication, he was also diagnosed with liver cirrhosis related to alcohol and new diagnosis of hepatitis C, he was not able to follow-up with as a PCP, appointment was set up with Dr. Grider, for hepatic nodule alpha-fetoprotein was requested which was unremarkable, he has significant portal hypertension, he was given Levaquin, lactulose and nadolol.? MRI abdomen did not show hepatic mass however findings are consistent with liver cirrhosis. When I evaluated the patient in the ER he was awake, not confused at all, he was able to tell me that he lives alone and is still drinking alcohol.? He denies current use of methamphetamine. He consumes alcohol on a daily basis, his last drink was 48 hours ago, he is denying chest pain, shortness of breath, vomiting, diarrhea.? He is saying that there is a friend who would check up on him he does not want to go to any group home.? He is not complaining of any new complaints at the time my evaluation.? Patient is not able to take care of himself, he does not have home health services. Hospital Course Hospital Course Patient admitted to the hospital further evaluation and management of possible encephalopathy. On admission patient's ammonia levels were within normal limits which in the past has been on the higher side, liver functions were at his baseline, UA did not show any sign of UTI, no leukocytosis with a stable hemoglobin. His U tox was positive for benzodiazepine and alcohol level was 448 on admission. Patient was started on IV hydration along with CIWA protocol Ativan. By next morning patient was awake and alert and was walking in his room with his IV pole. Patient denies any nausea, vomiting but did complain of mild headache. We discussed in detail regarding the need for patient to go for alcohol rehab but he declined. We also discussed regarding safe discharge planning with the possibility of going home with home health versus SNF but patient declined the same as well. He has been discharged hemodynamically stable condition back home to continue with oral rifaximin along with lactulose as needed and multivitamins. Once again patient was counseled and educated in detail regarding cessation of alcohol use and to make sure he follows up with his primary care provider for further treatment of hepatitis. The same plan was discussed in detail with patient's significant other over the phone. All the questions were answered. Physical Exam Narrative: Unkempt appearance male who appears more than stated age No abdominal pain Abdomen is nondistended Nontender Multiple skin grafts noted Onychomycosis S1, S2 Non-focal neuro exam Tachycardia No audible stridor or wheezing Saturating well on room air Patient is awake and alert NIH 0 Discharge Data Studies Completed and Pending Completed Studies During Hospitalization Category Date Time Status CT abdomen pelvis w con* [id number] Urgent Cat Scan 01/01/22 17:[address] head wo con* [id number] Urgent Cat Scan 01/01/22 17:59 Completed XR chest 1V portable [id number] Urgent Exams 01/01/22 17:59 Completed Pending at discharge Category Date Time Status Blood Culture Stat Lab 01/01/22 20:00 Results HIV 1&2 Antigen & Antibody Routine Lab 01/02/22 12:12 Ordered Hepatitis Panel Comp [Hepatitis Panel Comprehensive] Lab 01/02/22 12:12 Ordered Routine Radiology Impressions Abdomen/Pelvis CT 01/01/22 17:59 IMPRESSION: 1. Inhomogenous cirrhotic liver. 2. Portal venous hypertension with splenic hilar and gastroesophageal varices. 3. Mild gallbladder wall enhancement with pericholecystic fluid. Cholecystitis is not excluded. Chest X-Ray 01/01/22 17:59 IMPRESSION: No acute findings. Head CT 01/01/22 17:59 IMPRESSION: 1. No acute intracranial abnormality identified. 2. No change from comparison. Laboratory Results WBC 4.7 10^3/uL (4.0-10.0) 01/02/22 05:25 RBC 3.44 10^6/uL (4.1-5.3) L 01/02/22 05:25 Hgb 9.9 g/dL (11.7-16.6) L 01/02/22 05:25 Hct 30.7 % (42.0-52.0) L 01/02/22 05:25 MCV 89.2 fl (80-94) 01/02/22 05:25 MCH 28.8 pg (28.0-34.0) 01/02/22 05:25 MCHC 32.2 g/dL (30.0-36.0) 01/02/22 05:25 RDW 21.2 % (12.1-15.1) H 01/02/22 05:25 Plt Count 32 10^3/cmm (130-400) L 01/02/22 05:25 MPV TNP 01/02/22 05:25 Neut % (Auto) 51.6 % 01/02/22 05:25 Lymph % (Auto) 34.0 % 01/02/22 05:25 [place] % (Auto) 9.8 % 01/02/22 05:25 Eos % (Auto) 2.3 % 01/02/22 05:25 Baso % (Auto) 1.5 % 01/02/22 05:25 Neut # (Auto) 2.43 10^3/uL (1.8-7.7) 01/02/22 05:25 Lymph # (Auto) 1.6 10^3/uL (0.8-4.8) 01/02/22 05:25 [place] # (Auto) 0.5 10^3/uL (0.2-0.9) 01/02/22 05:25 Eos # (Auto) 0.1 10^3/uL (0.0-0.8) 01/02/22 05:25 Baso # (Auto) 0.1 10^3/uL (0.0-0.1) 01/02/22 05:25 Nucleated RBC % (auto) 0 % 01/02/22 05:25 Nucleated RBCs # 0.0 /100WBC 01/02/22 05:25 Pathologist Review No 01/02/22 05:25 Poikilocytosis Trace 01/02/22 05:25 Target Cells 1+ H 01/02/22 05:25 Sodium 136 mmol/L (136-145) 01/02/22 05:25 Potassium 3.8 mmol/L (3.5-5.1) 01/02/22 05:25 Chloride 100 mmol/L (98-107) 01/02/22 05:25 Carbon Dioxide 25 mmol/L (22-29) 01/02/22 05:25 Anion Gap 14.8 (5-19) 01/02/22 05:25 BUN 5 mg/dL (6-20) L 01/02/22 05:25 Creatinine 0.4 mg/dL (0.7-1.2) L 01/02/22 05:25 GFR Calculation 226.8 mL/min (90-130) H 01/02/22 05:25 Glucose 103 mg/dL (65-115) 01/02/22 05:25 Calculated Osmolality 280 mOsm/kg (285-295) L 01/02/22 05:25 Calcium 7.8 mg/dL (8.5-10.5) L 01/02/22 05:25 Magnesium 1.6 mg/dL (1.7-2.3) L 01/02/22 05:25 Total Bilirubin 2.6 mg/dL (0.15-1.2) H 01/02/22 05:25 AST 145 U/L (0-40) H 01/02/22 05:25 ALT 21 U/L (0-41) 01/02/22 05:25 Alkaline Phosphatase 174 IU/L (40-130) H 01/02/22 05:25 Ammonia 43 umol/L (16-60) 01/01/22 18:15 C-Reactive Protein 3.0 mg/L (0.0-4.9) 01/02/22 05:25 Total Protein 8.3 g/dL (6.6-8.7) 01/02/22 05:25 Albumin 3.0 g/dL (3.5-5.2) L 01/02/22 05:25 Globulin 5.3 g/dL (1.3-4.6) H 01/02/22 05:25 Lipase 66 U/L (13-60) H 01/01/22 18:15 Procalcitonin 0.07 ng/mL (0-0.5) 01/01/22 20:00 Urine Color Dark yellow (Yellow) 01/01/22 19:30 Urine Appearance Clear (CLEAR) 01/01/22 19:30 Urine pH 8 (5-7) H 01/01/22 19:30 Ur Specific [place] 1.010 (1.005-1.030) 01/01/22 19:30 Urine Protein Trace (Negative) 01/01/22 19:30 Urine Glucose (UA) Norm (Normal) 01/01/22 19:30 Urine Ketones Negative (Negative) 01/01/22 19:30 Urine Blood Neg (Negative) 01/01/22 19:30 Urine Nitrate Negative (Negative) 01/01/22 19:30 Urine Bilirubin 1+ (Negative) H 01/01/22 19:30 Prot Sulfosalicylic Acd Negative (Negative) 01/01/22 19:30 Urine Urobilinogen 8 mg/dL (Negative) H 01/01/22 19:30 Ur Leukocyte Esterase Negative (Negative) 01/01/22 19:30 Urine RBC 0-4 /hpf (0-2) H 01/01/22 19:30 Urine WBC 0-4 /hpf (0-5) H 01/01/22 19:30 Ur Squamous Epith Cells 0-4 /hpf (0-5) H 01/01/22 19:30 Ur Transition Epith Cell None /hpf 01/01/22 19:30 Ur Renal Epithelial Cell N /hpf 01/01/22 19:30 Calcium Oxalate Crystal None /hpf 01/01/22 19:30 Uric Acid Crystals N /hpf 01/01/22 19:30 Triple Phos Crystals None /hpf 01/01/22 19:30 Other Crystals N /hpf 01/01/22 19:30 Amorphous Sediment Trace /hpf 01/01/22 19:30 Urine Bacteria 1+ /hpf (NONE) H 01/01/22 19:30 Hyaline Casts None /lpf 01/01/22 19:30 Fine Granular Casts None /lpf 01/01/22 19:30 Coarse Granular Casts None /lpf 01/01/22 19:30 RBC Casts None /lpf 01/01/22 19:30 Other Casts N /lpf 01/01/22 19:30 Urine Mucus None /hpf 01/01/22 19:30 Urine Trichomonas None /hpf 01/01/22 19:30 Urine Yeast None /hpf 01/01/22 19:30 Urine Sperm None /hpf 01/01/22 19:30 Ur Oval Fat Bodies None /hpf 01/01/22 19:30 Urine Opiates Screen Negative ng/mL (Negative) 01/01/22 19:30 Ur Barbiturates Screen Negative ng/mL (Negative) 01/01/22 19:30 Ur Phencyclidine Scrn Negative ng/mL (Negative) 01/01/22 19:30 Ur Amphetamines Screen Negative ng/mL (Negative) 01/01/22 19:30 U Benzodiazepines Scrn Positive ng/mL (Negative) H 01/01/22 19:30 Urine Cocaine Screen Negative ng/mL (Negative) 01/01/22 19:30 U Marijuana (THC) Screen Negative ng/mL (Negative) 01/01/22 19:30 Ethyl Alcohol 448 mg/dL (0-10) H* 01/01/22 20:00 Vitals Last Vital Signs Temp 98.5 F 01/02/22 07:32 Pulse 73 01/02/22 07:32 Resp 17 01/02/22 03:10 BP 134/83 01/02/22 07:32 Pulse Ox 96 01/02/22 07:32 Discharge Plan Discharge Patient Disposition: Home Condition: Stable Prescriptions: New metoprolol tartrate 25 mg Tablet 25 mg PO BID@0900,2100 Qty: 60 0RF lactulose 20 gram/30 mL Solution 20 g PO BID PRN (Reason: hepatic encephalopathy) Qty: 300 0RF multivitamin with folic acid [Thera] 400 mcg Tablet 1 tab PO DAILY Qty: 30 0RF Continued Xifaxan 200 mg tablet 400 mg PO BID Qty: 60 3RF Discharge Orders: Discharge Order (Routine); Ordered 01/02/22 Ordered By: Adam Morfin Referrals: Howard Grider MD [Primary Care Provider] - 7-10 days Discharge Diet: Advance as tolerated Discharge Activity: Resume usual activity Patient Instructions: Opioid Safety Activity Restrictions/Additional Instructions: Please follow-up with your primary care provider for further treatment and management of hepatitis C. As discussed in detail please try to avoid alcohol use. Please consider alcohol intoxication rehabitation center. Continue taking rifaximin as before. You can take lactulose 20 mg twice a day as needed if you do not have at least 2-3 soft bowel movements daily. Discharge Attestations Time Spent in Discharge Care*: greater than 30 min Specific Discharge Activities: educating patient, educating and/or supporting family/caregiver, discussing with returned case inspector/social workers/dc planners, documenting/other paperwork and evaluating patient/reviewing data Status at Discharge: Cognitive status at discharge: mildly impaired cognition , Behavioral status at discharge: cooperative , Functional status at discharge: independent ambulation , Overall status at discharge: patient is back to baseline Quality Metrics Clinical Quality Measures [ No reported AMI, CVA or VTE this stay] Coding Level of Care Code Acute Chg FW DC note Diagnoses Hepatic encephalopathy K72.90 Delirium R41.0 Nodule on liver K76.89 Hepatitis C antibody positive in blood R76.8 Liver cirrhosis K74.60
--- NOTE | 2022-01-02 12:14 | PC.CHAP ---
Pastoral Care Encounter/Spiritual Assessment Type of Contact [] Declined label sewer visit [] Patient/Family/Request visit [] Outpatient visit [] Follow-up visit [] Physician referral [] Code/Alert [x] Routine visit [] Staff referral [] Actively dying [] Patient sleeping [] Family support [] [] Out of room [] Palliative care [] [] Receiving care in room [] Pre-surgical visit [] Trauma [] Long length of stay [] ICU visit [] Other: Relational/Emotional Strength [x] Patient feels connected with others/family/visitors/staff [] Distress [] Loneliness/isolation [] Abandonment Spirituality of Patient [x] Person of Sue [x] Attends [employer]aritan of their Sue [x] Believes in Prayer [] Reads Bible or Baptist materials [] There are Spiritual issues to be addressed 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 Interventions [x] Prayer [x] Active listening [] Non-anxious presence [] Spiritual/emotional support [] Crisis/trauma care [] Spiritual counseling [] Bereavement support [] Provided bereavement packet [] Provided Bible/devotional materials [] Provided toy/stuffed animal, coloring book to patient or family member [] Provided Communion [] Anointing/[place] [] Salvation [x] Completed spiritual assessment [] Other: Impact on Illness or Injury [] Angry [] Fearful [] Anxious [] Often cries [] Exhaustion [] Unable to work [] Unable to attend taoism [] Unable to walk/stand [] Unable to read [] Unable to drive [] Unable to eat/drink [] Unable to sleep [] Unable to be with family [] Patient intubated [] Other: Summary Time spent with patient 10 min
--- NOTE | 2022-01-02 14:21 | PC.NURSE ---
Patient resting in room, waiting for to bring clothes. Patient removed IV on incident. Discharged education received and verbally acknowledges understanding.
[2022-01-02 14:25] VITALS: BP 133/83; PULSE 72; RESP 13; O2SAT 93
== END 2022-01-02 15:13 | disposition home or self-care (01) | DRG 443 ==
LOC: ER 18:45 → MEDSURG 20:17
PROVIDERS: Admitting Provider Internal Medicine; Emergency Provider Emergency Medicine; PCP Internal Medicine; Visit Provider Student in an Organized Health Care Education/Training Program
DX: K72.90 Hepatic failure, unspecified without coma (principal); B19.20 Unspecified viral hepatitis C without hepatic coma; K76.89 Other specified diseases of liver; K74.60 Unspecified cirrhosis of liver; F10.10 Alcohol abuse, uncomplicated; Y90.8 Blood alcohol level of 240 mg/100 ml or more
CPT/HCPCS: 36415; 70450; 71045; 74177; 80053; 80306; 80307; 81001; 82140; 83690; 83735; 84145; 85025; 86140; 87040; 96360; 96361; 96372; 99285; J0696; J2405; J3411; J7030; Q9967

== ENCOUNTER 2022-06-21 10:55 | Emergency (ER) | payer MEDICAID, SELFPAY ==
[2022-06-21] VITALS (38 sets, daily range): BP systolic 95–211; BP diastolic 58–143; PULSE 112–140; RESP 14–36; TEMP 36.6–37; O2SAT 95–100; BMI 25.7
[2022-06-21] MEDS: fentaNYL 50 mcg/mL INJ 2mL IVP (12:08)
[2022-06-21 12:10] LABS: Basophils # 0.1 10^3/uL (0.0-0.1); Basophils % 1.1 %; Eosinophils % 0.2 %; Hematocrit 32.7 % (42.0-52.0); Hemoglobin 10.6 g/dL (11.7-16.6); Lymphocytes # 1.5 10^3/uL (0.8-4.8); Lymphocytes % 26.2 %; Mean Corpuscular HGB Conc 32.4 g/dL (30.0-36.0); Mean Corpuscular Hemoglobin 32.1 pg (28.0-34.0); Mean Corpuscular Volume 99.1 fl (80-94); Mean Platelet Volume 12.1 fL (7.4-10.4); Monocytes # 0.9 10^3/uL (0.2-0.9); Monocytes % 15.7 %; Neutrophils # 3.13 10^3/uL (1.8-7.7); Neutrophils % 56.4 %; Nucleated Red Blood Cells % 0 %; Platelet Count 67 10^3/cmm (130-400); Red Cell Distribution Width 17.2 % (12.1-15.1); White Blood Count 5.5 10^3/uL (4.0-10.0)
[2022-06-21 12:28] LABS: Ammonia 187 umol/L (16-60)
[2022-06-21 12:31] LABS: Lactic Sepsis W/Reflex 5.6 mmol/L (0.5-2.2)
[2022-06-21 12:32] LABS: Alanine Aminotransferase 43 U/L (0-41); Albumin Level 3.4 g/dL (3.5-5.2); Alkaline Phosphatase 172 U/L (40-130); Blood Urea Nitrogen 18 mg/dL (6-20); Calcium 8.9 mg/dL (8.5-10.5); Carbon Dioxide 28 mmol/L (22-29); Chloride 94 mmol/L (98-107); Globulin 4.4 g/dL (1.3-4.6); Glucose 145 mg/dL (65-115); Lipase 41 U/L (13-60); Osmolality Calculated 292 mOsm/kg (285-295); Sodium 139 mmol/L (136-145); Total Protein 7.8 g/dL (6.6-8.7)
[2022-06-21 12:34] LABS: Anion Gap 21.2 (5-19); Aspartate Amino Transferase 144 U/L (0-40); Potassium 4.2 mmol/L (3.5-5.1)
[2022-06-21] MEDS: pantoprazole 40 mg SDV 80 MG IVP (13:00)
[2022-06-21] MEDS: octreotide 100 mcg/mL SDV 50 MCG IVP (13:00)
--- NOTE | 2022-06-21 13:02 | PC.PHAR ---
PTS VERIFIED PTS MEDICATIONS-PTS STATES PT HASNT TAKEN METOPROLOL TARTRATE 25MG BID,THERA 1 TAB DAILY-AND XIFAXAN 400MG BID SINCE JANUARY 2022-[facility] SHOWS RXS WRITTEN ON 05/27/22 FROM PTS STATES NEVER GOT THOSE MEDICATIONS- STATES SHE GAVE THE PT SOME LACTULOSE YESTERDAY 06/20/22 STATES HE DOESNT ALWAYS TAKE-
[2022-06-21 13:13] LABS: Alcohol Level 222 mg/dL (0-10)
[2022-06-21 13:15] LABS: INR 1.71 (0.8-1.2)
[2022-06-21 13:16] LABS: Partial Thromboplastin Time 37.4 SECONDS (23.9-36.7)
--- NOTE | 2022-06-21 13:32 | W.ED.GIBLEED ---
HPI - GI Bleed General: Chief complaint: GI Bleed Stated complaint: Vomitting Blood Time Seen by Provider: 06/21/22 11:54 Source: patient Mode of arrival: ambulatory History of Present Illness: 51-year-old male presents emergency room with complaint of gross hematemesis. He is known to be a heavy drinker has a hepatitis see history as well. He does admit to drinking over a pint of alcohol last night. Several episodes of gross hematemesis after arrival. Denies chest pain at this time. Began overnight. complaint: gross hematemesis Onset (ago): hour(s) Pain Consistency: intermittent Severity: severe Relieving factors: none Exacerbating factors: none Context: history of GI bleed, liver disease and other (Alcoholism) Associated symptoms: Reports abdominal pain, malaise, nausea and poor appetite; Denies chills, easy bruising, epistaxis, fever(s), headache(s), other bleeding, rash, syncope, vomiting or weakness Treatments Prior to Arrival: none Review of Systems Const: Reports: malaise; Denies: fever(s) or chills ENMT: Denies: throat pain or epistaxis Card: Denies: syncope Resp: Denies: dyspnea, productive cough or non-productive cough GI: Reports: abdominal pain, nausea, hematemesis, bloating, hematochezia and melena; Denies: vomiting : Denies: flank pain, dysuria, urinary frequency or urinary urgency Skin/Breast: Denies: rash Neuro: Denies: headache(s) Edi/Lymph: Denies: easy bruising PFS ED PFSH: Medical History (Updated 07/03/22 @ 09:45 by Siva Leblanc DO) Alcohol abuse Amphetamine abuse Ascites Cirrhosis Elevated d-dimer Elevated INR Hepatitis C antibody positive in blood Liver cirrhosis Nodule on liver Portal hypertension Surgical History (Updated 01/01/22 @ 21:02 by Onel Garcia MD) H/O skin graft No pertinent past surgical history Family History Other Family history unknown Social History Smoking and tobacco status: current every day smoker Alcohol intake: current Physical Exam Const: COMMON NORMALS: no acute distress GENERAL APPEARANCE: cooperative and comfortable ORIENTATION/CONSCIOUSNESS: Yes awake, Yes oriented to person, Yes oriented to place and Yes oriented to time HENMT: COMMON NORMALS: normocephalic, atraumatic and hearing grossly normal bilaterally HEAD & SCALP: normocephalic and atraumatic Eye: COMMON NORMALS: Equal, round and reactive pupils present, EOMs intact bilaterally, conjunctivae normal and no scleral icterus CONJUNCTIVA: Yes conjunctivae normal PUPIL: Yes Equal, round and reactive pupils present Neck/C-Spine: COMMON NORMALS: full ROM, no lymphadenopathy, supple and no JVD Lymph: LYMPHATIC: no lymphadenopathy noted and no lymphedema noted Resp: COMMON NORMALS: normal respiratory effort, No retractions, No use of accessory muscles and clear to auscultation bilaterally AUSCULTATION: clear to auscultation bilaterally Cardio: COMMON NORMALS: no JVD, regular rate, regular rhythm and No murmurs present (Cardio) RATE: regular rate RHYTHM: regular rhythm GI: COMMON NORMALS: Soft to palpation and No hepatosplenomegaly present AUSCULTATION: Yes normoactive bowel sounds PALPATION: Yes Soft to palpation, No Tenderness to palpation present (GI), No Guarding due to palpation present (GI) and Yes No hepatosplenomegaly present Extremity: COMMON NORMALS: normal to inspection, capillary refill normal, no clubbing, cyanosis or edema, no calf tenderness and no pedal edema Neuro: SENSORIUM/ORIENTATION: Yes oriented to person, Yes oriented to place and Yes oriented to time Skin: COMMON NORMALS: no rashes or lesions noted GENERAL SKIN EXAM: no rashes or lesions noted Procedures Intubation Time out performed: Yes sedative: Etomidate paralytic: Vecuronium Laryngoscope: fiber optic video scope Assist Device Used: fiber optic device ET Tube Size: 8 ET Tube Uncuffed: No Tube Secured Depth (cm): 23 Tube Secured Location: teeth Tube Placement Confirmation: visualized tube passing through cords, equal breath sounds bilaterally, no breath sounds over epigastrium and confirmation by capnometry Patient Tolerated Procedure: well Intubation Complications: none Course Vital Signs: Vital signs: Vital Signs Temperature 98.4 F 06/21/22 16:01 Pulse Rate 115 H 06/21/22 16:01 Respiratory Rate 14 06/21/22 16:01 Blood Pressure 130/87 06/21/22 16:01 Pulse Oximetry 100 06/21/22 16:01 Oxygen Delivery Me thod 06/21/22 11:34 MDM - GI Bleed Medical Decision Making Upper GI bleed with suspected esophageal varices. Patient given octreotide transfused blood. He will be transferred via air ambulance to tertiary care center arrangements made. Patient electively intubated to protect airway in route. Receiving doctor and I discussed this and both agree. Discussed with the patient he is agreeable to the plan. Patient has been transfused blood products as well. Patient to be transferred to [facility] via air [facility] Medical Records I reviewed the patient's medical records. Lab Data I reviewed the patient's lab results. : 06/21/22 15:00 06/21/22 12:02 Laboratory Results WBC 5.5 10^3/uL (4.0-10.0) 06/21/22 12:02 RBC 3.30 10^6/uL (4.1-5.3) L 06/21/22 12:02 Hgb 10.9 g/dL (11.7-16.6) L 06/21/22 15:00 Hct 32.0 % (42.0-52.0) L 06/21/22 15:00 MCV 99.1 fl (80-94) H 06/21/22 12:02 MCH 32.1 pg (28.0-34.0) 06/21/22 12:02 MCHC 32.4 g/dL (30.0-36.0) 06/21/22 12:02 RDW 17.2 % (12.1-15.1) H 06/21/22 12:02 Plt Count 67 10^3/cmm (130-400) L 06/21/22 12:02 MPV 12.1 fL (7.4-10.4) H 06/21/22 12:02 Neut % (Auto) 56.4 % 06/21/22 12:02 Lymph % (Auto) 26.2 % 06/21/22 12:02 [place] % (Auto) 15.7 % 06/21/22 12:02 Eos % (Auto) 0.2 % 06/21/22 12:02 Baso % (Auto) 1.1 % 06/21/22 12:02 Neut # (Auto) 3.13 10^3/uL (1.8-7.7) 06/21/22 12:02 Lymph # (Auto) 1.5 10^3/uL (0.8-4.8) 06/21/22 12:02 [place] # (Auto) 0.9 10^3/uL (0.2-0.9) 06/21/22 12:02 Eos # (Auto) 0.0 10^3/uL (0.0-0.8) 06/21/22 12:02 Baso # (Auto) 0.1 10^3/uL (0.0-0.1) 06/21/22 12:02 Nucleated RBC % (auto) 0 % 06/21/22 12: Nucleated RBCs # 0.0 /100WBC 06/21/22 12:02 PT 20.40 SECONDS (12.1-14.9) H 06/21/22 12:02 INR 1.71 (0.8-1.2) H 06/21/22 12:02 APTT 37.4 SECONDS (23.9-36.7) H 06/21/22 12:02 Sodium 139 mmol/L (136-145) 06/21/22 12:02 Potassium 4.2 mmol/L (3.5-5.1) 06/21/22 12:02 Chloride 94 mmol/L (98-107) L 06/21/22 12:02 Carbon Dioxide 28 mmol/L (22-29) 06/21/22 12:02 Anion Gap 21.2 (5-19) H 06/21/22 12:02 BUN 18 mg/dL (6-20) 06/21/22 12:02 Creatinine 0.9 mg/dL (0.7-1.2) 06/21/22 12:02 GFR Calculation 89.0 mL/min (90-130) L 06/21/22 12:02 Glucose 145 mg/dL (65-115) H 06/21/22 12:02 Calculated Osmolality 292 mOsm/kg (285-295) 06/21/22 12:02 Lactic Acid 5.6 mmol/L (0.5-2.2) H* 06/21/22 12:02 Lactic Acid (Sepsis) 3.5 mmol/L (0.5-2.2) H 06/21/22 15:00 Calcium 8.9 mg/dL (8.5-10.5) 06/21/22 12:02 Total Bilirubin 3.0 mg/dL (0.15-1.2) H 06/21/22 12:02 AST 144 U/L (0-40) H 06/21/22 12:02 ALT 43 U/L (0-41) H 06/21/22 12:02 Alkaline Phosphatase 172 U/L (40-130) H 06/21/22 12:02 Ammonia 187 umol/L (16-60) H 06/21/22 12:02 Total Protein 7.8 g/dL (6.6-8.7) 06/21/22 12:02 Albumin 3.4 g/dL (3.5-5.2) L 06/21/22 12:02 Globulin 4.4 g/dL (1.3-4.6) 06/21/22 12:02 Lipase 41 U/L (13-60) 06/21/22 12:02 Ethyl Alcohol 222 mg/dL (0-10) H 06/21/22 12:02 Blood Type O Positive 06/21/22 12:54 Rho(D) Type Positive 06/21/22 12:54 Antibody Screen Negative 06/21/22 12:54 Crossmatch See Detail 06/21/22 12:54 Critical Care Time Critical Care Time: Critical Care Time: Yes Total Critical Care Time: 60 Attestation: The high probability of a clinically significant, sudden or life threatening deterioration of the patient's [Upper GI bleed] system(s) required my full and direct attention, intervention and personal management. The critical care time is as shown. This time is in addition to time spent performing any reported procedures but includes the following: [x] Data and vital sign review and interpretation [x] Patient assessment, examination and intervention [x] Documentation [x] Medication orders and management Discharge Plan Discharge Patient Disposition: Transfer to ED Clinical Impression: Upper gastrointestinal hemorrhage, Esophageal varices, Alcohol ingestion, more than 4 drinks/day on alcohol screening, Thrombocytopenia, Hepatic encephalopathy Condition: Stable Prescriptions: No Action lactulose 20 gram/30 mL solution 20 g PO BID PRN (Reason: hepatic encephalopathy) Qty: 300 0RF Coding Level of Care Code ED Controls Operator Molded Goods for Lizbeth Tyson
[2022-06-21 13:55] LABS: Reflex Lactate Order REFLEX LACTIC ORDERD
[2022-06-21] MEDS: vecuronium 10 mg SDV IVP (14:22)
[2022-06-21 15:07] LABS: Hemoglobin 10.9 g/dL (11.7-16.6)
[2022-06-21 15:20] LABS: Lactic Acid level (Lactate) 3.5 mmol/L (0.5-2.2)
[2022-06-21] MEDS: propofol 1,000 MG/100 ML INJ 25.86 MG IV (15:22)
--- NOTE | 2022-06-21 16:40 | PC.NURSE ---
UNABLE TO GIVE VERSED DRIP DUE TO NOT HAVING ANOTHER IV SITE WHEN [facility] CAME TO PICK PATIENT UP. [facility] STATED THAT THEY WILL GIVE FENTANYL PUSHES ENROUTE. PT IS RESTING COMFORTABLY ON THE VENTILATOR UPON LEAVING THE DEPARTMENT. PROPOFOL DRIP RUNNING ALSO.
== END 2022-06-21 16:00 ==
PROVIDERS: Physician Assistant; Emergency Provider Family Medicine
DX: K92.2 Gastrointestinal hemorrhage, unspecified (principal); I85.00 Esophageal varices without bleeding; D69.6 Thrombocytopenia, unspecified; K76.82 Hepatic encephalopathy; F10.20 Alcohol dependence, uncomplicated; Y90.7 Blood alcohol level of 200-239 mg/100 ml
CPT/HCPCS: 31500; 36415; 36430; 80053; 80307; 82140; 83605; 83690; 85014; 85018; 85025; 85610; 85730; 86850; 86900; 86920; 86927; 96365; 96375; 99291; 99292; C9113; J2354; J2704; J3010; J3490; J7030; P9016; P9017

== ENCOUNTER → 2022-10-22 09:27 | Outpatient (BNVA) | payer MEDICAID, SELFPAY | PROVIDERS: PCP Family Medicine; Visit Provider Surgery | DX: Z87.19 Personal history of other diseases of the digestive system (principal); K76.6 Portal hypertension | CPT/HCPCS: 99203 ==

== ENCOUNTER 2023-04-30 15:06 | Inpatient (IN) | payer MEDICAID, SELFPAY ==
[2023-04-30 15:26] VITALS: BMI 25.0
[2023-04-30 15:32] VITALS: BP 90/55; PULSE 61; RESP 16; TEMP 36.8; O2SAT 96
--- NOTE | 2023-04-30 15:57 | XRR_ITS ---
PROCEDURE INFORMATION: Exam: XR Chest Exam date and time: 04/30/2023 4:04 PM Age: 52 years old Clinical indication: Other: AMS TECHNIQUE: Imaging protocol: Radiologic exam of the chest. Views: 1 view. COMPARISON: CR XR chest 1V portable [id number] 01/01/2022 6:39 PM FINDINGS: Lungs: Unremarkable. No consolidation. Pleural spaces: Unremarkable. No pleural effusion. No pneumothorax. Heart/Mediastinum: Unremarkable. No cardiomegaly. Bones/joints: Unremarkable. XR/XR chest 1V portable [id number] IMPRESSION: No acute findings.
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
--- NOTE | 2023-04-30 16:10 | ECG_ITS ---
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 Measurements Intervals [place] Rate: 55 P: 75 MD: 151 QRS: 32 QRSD: 113 T: 50 QT: 495 QTc: 474 Interpretive Statements SINUS BRADYCARDIA MODERATE INTRAVENTRICULAR CONDUCTION DELAY [110+ ms QRS DURATION] PROLONGED QT INTERVAL Compared to ECG 08/10/2021 14:22:01 Prolonged QT interval now present Sinus rhythm no longer present Electronically Signed On 05-01-2023 7:59:34 CDT by Frank Tinoco M.D. [id number]
[2023-04-30 16:17] LABS: Basophils % 0.3 %; Eosinophils # 0.1 10^3/uL (0.0-0.8); Eosinophils % 1.2 %; Hemoglobin 12.1 g/dL (11.7-16.6); Lymphocytes # 1.6 10^3/uL (0.8-4.8); Lymphocytes % 21.2 %; Mean Corpuscular HGB Conc 33.6 g/dL (30.0-36.0); Mean Corpuscular Hemoglobin 31.3 pg (28.0-34.0); Mean Platelet Volume 12.5 fL (7.4-10.4); Monocytes # 1.1 10^3/uL (0.2-0.9); Monocytes % 14.6 %; Neutrophils # 4.84 10^3/uL (1.8-7.7); Neutrophils % 62.4 %; Nucleated Red Blood Cells % 0 %; Platelet Count 132 10^3/cmm (130-400); Red Blood Count 3.87 10^6/uL (4.1-5.3); Red Cell Distribution Width 15.1 % (12.1-15.1); White Blood Count 7.7 10^3/uL (4.0-10.0)
[2023-04-30 16:39] LABS: SARS Covid-2 Antigen negative (Negative)
[2023-04-30 16:43] LABS: Ammonia 38 umol/L (16-60)
[2023-04-30 16:44] LABS: Alanine Aminotransferase 39 U/L (0-41); Albumin Level 3.3 g/dL (3.5-5.2); Alkaline Phosphatase 90 U/L (40-130); Anion Gap 16.3 (5-19); Aspartate Amino Transferase 126 U/L (0-40); Blood Urea Nitrogen 30 mg/dL (6-20); Calcium 9.3 mg/dL (8.5-10.5); Carbon Dioxide 24 mmol/L (22-29); Chloride 98 mmol/L (98-107); Globulin 3.4 g/dL (1.3-4.6); Glomerular Filtration Rate 63.6 mL/min (90-130); Glucose 91 mg/dL (65-115); Osmolality Calculated 286 mOsm/kg (285-295); Potassium 3.3 mmol/L (3.5-5.1); Sodium 135 mmol/L (136-145); Total Bilirubin 3.5 mg/dL (0.15-1.2); Total Protein 6.7 g/dL (6.6-8.7)
[2023-04-30 16:49] LABS: Acetaminophen < 5.0 ug/mL (10-30); Alcohol Level < 10 mg/dL (0-10); Salicylate < 0.3 mg/dL (3-10)
[2023-04-30 16:50] LABS: Influenza A by IFA Negative (Negative); Influenza B by IFA Negative (Negative)
[2023-04-30 17:11] LABS: Protein Urine Neg (Negative); Urine Appearance Clear (CLEAR); Urine Color Amber (Yellow); pH Urine 5 (5-7)
[2023-04-30 17:12] LABS: Add Urine Microscopic? YES; Bilirubin Urine Neg (Negative); Blood Urine 2+ (Negative); Glucose Urine UA Norm (Normal); Ketones Urine 1+ (Negative); Leukocyte Esterase Urine 1+ (Negative); Nitrate Urine Negative (Negative); RBC Urine 0-4 /hpf (0-2); Urobilinogen Urine 4 mg/dL (Negative)
[2023-04-30 17:13] LABS: Add Urine Culture? No; Mucus Urine 3+ /hpf
[2023-04-30 17:16] LABS: Amphetamines Screen Urine Positive (Negative); Barbiturates Screen Urine Negative (Negative); Benzodiazepines Screen Urine Negative (Negative); Cocaine Screen Urine Negative (Negative); Opiate Screen Urine Negative (Negative); PCP Screen Urine Negative (Negative); THC Screen Urine Positive (Negative)
[2023-04-30 18:02] VITALS: BP 111/73; PULSE 68; O2SAT 98
[2023-04-30 18:10] VITALS: BP 111/71; PULSE 63; RESP 16; TEMP 36.7; O2SAT 97
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
[2023-04-30] MEDS: hyDROXYzine 25 mg Capsule 50 MG PO (20:13)
[2023-04-30] MEDS: OLANZapine 5 mg ODT PO (20:13)
[2023-04-30] MEDS: trazodone 50 mg Tablet PO (20:13)
[2023-04-30] MEDS: haloperidol 5 mg Tablet PO (21:30)
[2023-04-30] MEDS: LORazepam 2 mg Tablet PO (21:30)
[2023-04-30] MEDS: diphenhydrAMINE 50 mg Capsule PO (21:30)
[2023-04-30 21:36] VITALS: BP 105/64; PULSE 71; RESP 20; TEMP 36.9; O2SAT 96
[2023-04-30 21:39] VITALS: BP 103/58; PULSE 66; RESP 20; TEMP 36.7; O2SAT 99
--- NOTE | 2023-04-30 21:57 | PC.NURSE ---
This nurse heard a loud bang, and went out to [facility] to investigate. Pt was coming out of the bathroom in the [place] w/a cup of water in his had. Pt spilled his water in the floor d/t to unsteadiness and hurried gait he fell to the floor. Pt landed on the floor on the left side of his body, hitting his hip. There is no bruising, edema, or redness present at this time. Pt BURRELL w/ease. Pt remains unsteady and unaware of safety precautions and teachings. Staff monitoring pt d/t unsteady gait and inability to follow safety directions. Dr. Argueta notified. correctional supervisor present, and aware of the incident.
[2023-05-01 06:00] VITALS: RESP 18
--- NOTE | 2023-05-01 08:43 | PC.OT ---
OT EVALUATION ATTEMPTED THIS A.M. PATIENT IS SLEEPING SOUNDLY AND SNORING; DOES NOT AWAKEN TO NAME (MULTIPLE ATTEMPTS). WILL ATTEMPT AGAIN IN THE AFTERNOON.
--- NOTE | 2023-05-01 13:20 | P.NPUHP_ITS ---
Providers/Chief Complaint Admitting Physician: Allen Argueta MD Primary Care Provider: Derrek Amaro MD Chief Complaint: 96 Hold [facility] NPU History of Present Illness Siva Flores is a 52 year old male who presented to the emergency department with the following report: Chief Complaint: Psychiatric Symptoms Stated Complaint: 96 Hold Time Seen by Provider: 04/30/23 15:45 History of Present Illness: Patient was brought in by the police for 96-hour hold. Paperwork is on chart. Police at his patient is no longer in their custody. Paperwork in place reports patient was acting weird making statements that people are trying to kill him and shoot him. He was crawling on the ground like a warm. He was having a fight with his mattress and saying people were there trying to harm him. There were no people there. Patient does have a history of hepatic encephalopathy. These bizarre behavior started today. He was admitted to the neuropsychiatric unit for definitive treatment of these issues. He presents today unable to be evaluated secondary to his level of lethargy. His presentation is consistent with a positive UDS for methamphet amines but he does have a history of significant drug use. He has had multiple emergency room visits but no admissions. In the last year and a half he has had positive drug screens for cannabis, amphetamines and benzodiazepines. He has had positive BALs during that period 1 as high as 448. This UDS was positive for amphetamine and cannabis. He did respond to his name being jailed barely but was very lethargic and not a source of information for an active interview. We will get collateral information and monitor closely. Meds NPU Home Medications Medication Instructions Recorded Confirmed Last Taken Type Unable to Assess 04/30/23 04/30/23 Unknown History Allergies Allergy/AdvReac Type Severity Reaction Status Date / Time No Known Allergies Allergy Verified 10/22/22 09:30 PFSH NPU PFSH: Medical History Alcohol abuse Amphetamine abuse Ascites Cirrhosis Elevated d-dimer Elevated INR Hepatitis C antibody positive in blood History of esophageal varices 06/2022 Liver cirrhosis Nodule on liver Portal hypertension Surgical History H/O skin graft No pertinent past surgical history Family History Other Family history unknown Social History Smoking and tobacco status: current every day smoker Alcohol intake: current Mental Status Exam MSE Comments: This is a well-nourished well-developed white male in hospital scrubs with limited grooming and no eye contact. No abnormal movements except for significant psychomotor retardation. Uncooperative with exam in no acute di stress. Speech was nonexistent with some grunts. Mood not described affect subdued/lethargic. Thought process not observed. Thought content: Patient did not respond to questions. Attention and concentration are impaired and memory was not observed, but not formally tested. He is barely arousable and not able to be interviewed. Insight and judgment not observed impulse control not observed. Vitals/I&O/Wt Last Vital Signs Temp 98 F 05/01/23 14:00 Pulse 60 05/01/23 14:00 Resp 16 05/01/23 14:00 BP 121/74 05/01/23 14:00 Pulse Ox 92 05/01/23 14:00 O2 Del Method Room Air 05/01/23 14:00 Weight last 48 hrs Weight 83.915 kg Data NPU 04/30/23 16:05 04/30/23 16:05 A&P Assessment and plan (1) Acute psychosis: (2) History of esophageal varices: (3) Methamphetamine use disorder, severe: (4) Withdrawal from methamphetamine: Plan This is a 52-year-old white male with a long history of addiction and distant past mental health treatment who presents barely arousable and having had a positive UDS for amphetamines and cannabis having presented to the emergency department on a 96-hour hold secondary to psychosis. 1. Continue current medication. 2. Continue every 15 minute checks for safety. 3. Encourage individual, group and milieu therapies. 4. Encourage sober living treatment after discharge at the highest level of care to which he is willing to commit. Involuntary Hold Information 96 Hour Hold: 96 Hour Involuntary Admission: Yes 96 Hour Hold Ending Date: 05/06/23 96 Hour Hold Ending Time: 15:11 Attestations NPU Medical Necessity Statement*: Inpatient hospitalization is medically necessary and the clinically appropriate intervention at this time. We will monitor medications and make changes as indicated. Will be in the hospital for over 2 midnights. Likely length of stay 4 to 6 days. Coding Level of Care Code Acute Code for Chg Fwd Diagnoses Acute psychosis F23 History of esophageal varices Z87.19 Methamphetamine use disorder, severe F15.20 Withdrawal from methamphetamine F15.93
[2023-05-01 14:00] VITALS: BP 121/74; PULSE 60; RESP 16; TEMP 36.6; O2SAT 92
--- NOTE | 2023-05-01 15:49 | PC.OT ---
OT EVALUATION ATTEMPTED AGAIN THIS P.M. PATIENT CONTINUES TO SLEEP SOUNDLY; SNORING. EVALUATION TO BE ATTEMPTED AGAIN AT ANOTHER TIME.
--- NOTE | 2023-05-01 16:20 | PC.NURSE ---
Unable to complete pt assessment due to refusal to stay awake & participate. Myself, OT, and psychotherapist social worker all attempted to awake patient to assess him, but all attempts were unsuccessful.
--- NOTE | 2023-05-01 20:07 | XRR_ITS ---
PROCEDURE INFORMATION: Exam: XR Left Wrist Exam date and time: 05/01/2023 8:18 PM Age: 52 years old Clinical indication: Pain; Wrist; Left; Additional info: S/P fall with edema TECHNIQUE: Imaging protocol: Radiologic exam of the left wrist. Views: 3 or more views. COMPARISON: No relevant prior studies available. FINDINGS: Bones/joints: Normal. Soft tissues: Normal. XR/XR wrist LT min 3V* [id number] IMPRESSION: No acute findings.
[2023-05-01 20:15] VITALS: BP 135/80; PULSE 64; RESP 16; TEMP 37; O2SAT 96
--- NOTE | 2023-05-01 22:23 | PC.NURSE ---
When ambulating pt to new bed assignment it was noted that the pt had edema to the left side of his neck descending from his ear to the base of his neck. Pt denies pain or difficulty moving neck. Notified Dr. Argueta w/finding. Physician will notify hospitalist for consult.
--- NOTE | 2023-05-01 22:42 | CTR_ITS ---
PROCEDURE INFORMATION: Exam: CT Head Without Contrast Exam date and time: 05/01/2023 11:11 PM Age: 52 years old Clinical indication: Injury or trauma; Blunt trauma (contusions or hematomas); Patient HX: C/O head and neck pain post fall earlier today. Swelling to left side of neck. History of esophageal varices. ; Additional info: Edema left neck S/P fall 05/01, CT head and neck TECHNIQUE: Imaging protocol: Computed tomography of the head without contrast. Radiation optimization: All CT scans at this facility use at least one of these dose optimization techniques: automated exposure control; mA and/or kV adjustment per patient size (includes targeted exams where dose is matched to clinical indication); or iterative reconstruction. REPORTING DATA: Count of CT and Cardiac NM exams in prior 12 months: This patient has received 0 known CTs and 0 known cardiac nuclear medicine studies in the 12 months prior to the current study. COMPARISON: CT head wo con* [id number] 01/01/2022 6:28 PM RADIATION DOSE METRICS: Total DLP (mGy-cm): 1131.98 FINDINGS: Brain: Moderate diffuse white matter disease likely reflecting chronic microvascular ischemic changes. Cerebral ventricles: No ventriculomegaly. Paranasal sinuses: Visualized sinuses are unremarkable. No fluid levels. Mastoid air cells: Visualized mastoid air cells are well aerated. Bones/joints: Unremarkable. No acute fracture. Soft tissues: Partially visualized is an apparent lipoma in the left upper posterior neck. CT/CT head wo con* [id number] IMPRESSION: 1. Negative for intracranial hemorrhage or mass effect. 2. Moderate diffuse white matter disease likely reflecting chronic microvascular ischemic changes. 3. Partially visualized is an apparent lipoma in the left upper posterior neck.
--- NOTE | 2023-05-01 22:47 | CTR_ITS ---
PROCEDURE INFORMATION: Exam: CT Cervical Spine Without Contrast Exam date and time: 05/01/2023 11:15 PM Age: 52 years old Clinical indication: Injury or trauma; Blunt trauma; Patient HX: C/O head and neck pain post fall earlier today. Swelling to left side of neck. History of esophageal varices. ; Additional info: Edema left neck S/P fall 05/01 TECHNIQUE: Imaging protocol: Computed tomography of the cervical spine without contrast. Radiation optimization: All CT scans at this facility use at least one of these dose optimization techniques: automated exposure control; mA and/or kV adjustment per patient size (includes targeted exams where dose is matched to clinical indication); or iterative reconstruction. REPORTING DATA: Count of CT and Cardiac NM exams in prior 12 months: This patient has received 0 known CTs and 0 known cardiac nuclear medicine studies in the 12 months prior to the current study. COMPARISON: CT cervical spin wo con* [id number] 08/10/2021 12:43 PM RADIATION DOSE METRICS: Total DLP (mGy-cm): 183.2 FINDINGS: Bones/joints: See C5-C6 finding. C2-C3: No significant disc bulge or herniation. No severe spinal canal stenosis. No significant neural foraminal narrowing. C3-C4: No significant disc bulge or herniation. No severe spinal canal stenosis. No significant neural foraminal narrowing. C4-C5: No significant disc bulge or herniation. No severe spinal canal stenosis. No significant neural foraminal narrowing. C5-C6: C5-C6 severe disc space narrowing with productive degenerative endplate changes. C6-C7: No significant disc bulge or herniation. No severe spinal canal stenosis. No significant neural foraminal narrowing. C7-T1: No significant disc bulge or herniation. No severe spinal canal stenosis. No significant neural foraminal narrowing. Lungs: Lung apices are normal. Soft tissues: Left upper posterior neck probable lipoma. CT/CT cervical spin wo con* [id number] IMPRESSION: 1. C5-C6 severe disc space narrowing with productive degenerative endplate changes. 2. Left upper posterior neck probable lipoma.
--- NOTE | 2023-05-01 23:01 | P.CONIM_ITS ---
Providers/Reason For Consult Consulting Physician/Specialty*: Danny Guzman MD Reason for Consult*: Neck swelling, fall Requesting Physician: Dr. Argueta Attending Physician: Allen Argueta MD Primary Care Provider: Derrek Amaro MD History of Present Illness History of Present Illness Siva Flores is a 52 year old male with history of cirrhosis, esophageal varices, hepatic encephalopathy admitted to the neuropsychiatric unit with concerns of methamphetamine use, psychosis. From understanding he fell yes terday. The fall was unwitnessed. Originally there was thought to be no injuries but they noticed some left wrist swelling as well as some left neck swelling today. It was difficult to get history from the patient. On my history he reports no significant pain that is new from his baseline arthritic pain. He reports his neck swelling is chronic, and according to him was not a concern. He denies any left wrist pain. He remembers the fall after being prompted that it happened. He denies any dizziness. Review of Systems Card: Denies: chest pain Resp: Denies: dyspnea Musc: Denies: neck pain or extremity pain Medications/Allergies Home Medications Medication Instructions Recorded Confirmed Last Taken Type Unable to Assess 04/30/23 04/30/23 Unknown History Allergies Allergy/AdvReac Type Severity Reaction Status Date / Time No Known Allergies Allergy Verified 10/22/22 09:30 Current Medications Generic Name Dose Route Start Last Admin Trade Name Freq PRN Reason Stop Dose Admin Diphenhydramine HCl 50 mg 04/30/23 21:29 04/30/23 21:30 Diphenhydramine 50 Mg Capsule PO 50 mg Q4H PRN Administration AGITATION Haloperidol 5 mg 04/30/23 18:10 04/30/23 21:30 Haloperidol 5 Mg Tablet PO 5 mg Q4H PRN Administration AGITATION Hydroxyzine Pamoate 50 mg 04/30/23 18:10 04/30/23 20:13 Hydroxyzine 25 Mg Capsule PO 50 mg Q6H PRN Administration ANXIETY Lorazepam 2 mg 04/30/23 21:29 04/30/23 21:30 Lorazepam 2 Mg Tablet PO 2 mg Q4H PRN Administration ANXIETY Olanzapine 5 mg 04/30/23 18:10 04/30/23 20:13 Olanzapine 5 Mg Odt PO 5 mg Q4H PRN Administration Agitation/Psychosis Trazodone HCl 50 mg 04/30/23 18:10 04/30/23 20:13 Trazodone 50 Mg Tablet PO 50 mg BEDTIME PRN Administration SLEEP PFSH Acute PFSH: Medical History Alcohol abuse Amphetamine abuse Ascites Cirrhosis Elevated d-dimer Elevated INR Hepatitis C antibody positive in blood History of esophageal varices 06/2022 Liver cirrhosis Nodule on liver Portal hypertension Surgical History H/O skin graft No pertinent past surgical history Family History Other Family history unknown Social History Smoking and tobacco status: current every day smoker Alcohol intake: current Vitals/I&O/Wt Last Vital Signs Temp 98.6 F 05/01/23 20:15 Pulse 64 05/01/23 20:15 Resp 16 05/01/23 20:15 BP 135/80 05/01/23 20:15 Pulse Ox 96 05/01/23 20:15 O2 Del Method Room Air 05/01/23 20:15 Weight last 48 hrs Weight 83.915 kg Physical Exam Narrative: General exam demonstrates a white male, no distress Skin: Multiple areas of excoriations Neuro: No focal deficits, alert and oriented HEENT: Atraumatic normocephalic. Left neck mass is present, which feels like a lipoma. No bruising is noted. No evidence of range of motion deficit on observation of the patient Cardiovascular regular rate and rhythm without murmur Lungs clear no wheezing or crackles Abdomen is soft, nontender exam deferred Extremities no cyanosis clubbing or edema Neuro no obvious focal deficits Data 04/30/23 16:05 04/30/23 16:05 Other Labs: Left wrist x-ray which I reviewed demonstrates no fracture. CT head which I reviewed demonstrates no acute changes CT neck confirms a likely lipoma, arthritic disease, no fracture A&P Assessment and plan (1) Fall: Patient had a fall yesterday. There were no apparent injuries. CT head is negative. X-ray of the wrist is negative. (2) Neck mass: Patient has an obvious neck mass on exam, consistent with a lipoma CT neck had already been ordered by the time I arrived. I was able to check on this after the patient was seen and it is consistent with a lipoma. Plan Methamphetamine use History of hepatic encephalopathy, ammonia level normal on admit Thank you for this consultation I will sign off at this time, no significant injury was noted with the fall. X- rays reviewed. Consult Attestations Medical Necessity Statement: As per primary Diagnoses Fall W19.XXXA Neck mass R22.1 Time Spent (min) 35
--- NOTE | 2023-05-01 23:54 | PC.NURSE ---
Dr. Guzman here to assess pt. Pt seen and assessed. Awaiting CT scan results.
--- NOTE | 2023-05-02 04:58 | W.PM.NPUPNS ---
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 He endorsed feeling better and identified his use is part of the challenge. We discussed working with the social work team for treatment options and he endorsed being unclear what he was going to do but knowing he needs to do something. Mental Status Exam MSE Comments: This is a well-nourished well-developed white male in hospital scrubs with limited grooming and improved eye contact. No abnormal movements except for psychomotor retardation. more cooperative with exam in mild distress. Speech was limited with decreased rate and volume. Mood described as much better than yesterday, affect subdued, but brighter. Thought process linear. Thought content: Patient denied suicidal or homicidal ideation, there were no delusions reported or noted, he denied auditory or visual hallucinations. Attention and concentration are improving and memory was more reliable, but none were formally tested. He is alert and oriented to person and place. Insight and judgment limited and impulse control impaired. Vitals/I&O/Wt Last Vital Signs Temp 98.6 F 05/01/23 20:15 Pulse 64 05/01/23 20:15 Resp 16 05/01/23 20:15 BP 135/80 05/01/23 20:15 Pulse Ox 96 05/01/23 20:15 O2 Del Method Room Air 05/01/23 20:15 Weight last 48 hrs Weight 83.915 kg Data NPU 04/30/23 16:05 04/30/23 16:05 A&P Assessment and plan (1) Acute psychosis: (2) History of esophageal varices: (3) Methamphetamine use disorder, severe: (4) Withdrawal from methamphetamine: Plan This is a 52-year-old white male with a long history of addiction and distant past mental health treatment who presents barely much more cogent than yesterday having had a positive UDS for amphetamines and cannabis having presented to the emergency department on a 96-hour hold secondary to psychosis. 1. Continue current medication. 2. Continue one-to-one observation. 3. Encourage individual, group and milieu therapies. 4. Encourage sober living treatment after discharge at the highest level of care to which he is willing to commit. Involuntary Hold Information 96 Hour Hold: 96 Hour Involuntary Admission: Yes 96 Hour Hold Ending Date: 05/06/23 96 Hour Hold Ending Time: 15:11 Attestations NPU Medical Necessity Statement*: Inpatient hospitalization is medically necessary and the clinically appropriate intervention at this time. We will monitor medications and make changes as indicated. Likely length of stay 4 to 6 days. Coding Level of Care Code Acute Code for Chg Fwd Diagnoses Acute psychosis F23 History of esophageal varices Z87.19 Methamphetamine use disorder, severe F15.20 Withdrawal from methamphetamine F15.93
[2023-05-02 06:00] VITALS: RESP 16
[2023-05-02 14:00] VITALS: BP 138/80; PULSE 69; RESP 17; TEMP 37.1; O2SAT 96
[2023-05-02 21:53] VITALS: BP 149/97; PULSE 74; RESP 17; TEMP 37.2; O2SAT 96
[2023-05-03 06:00] VITALS: BP 159/97; PULSE 77; RESP 16; O2SAT 96
--- NOTE | 2023-05-03 07:19 | P.NPUPN_ITS ---
Subjective NPU Subjective: Patient presented today reporting that he is continuing to make slow progress. He continues to have limited spontaneity in his speech but does answer questions but seems to be fairly unclear what his plan is moving forward. We discussed the need for sober living treatment given his presentation which she understands but he appears to be unclear what he is willing to commit to. Mental Status Exam MSE Comments: This is a well-nourished well-developed white male in hospital scrubs with limited grooming and improved eye contact. No abnormal movements except for psychomotor retardation. more cooperative with exam in mild distress. Speech was limited with decreased rate and volume. Mood described as okay, affect subdued, but brighter. Thought process linear. Thought content: Patient denied suicidal or homicidal ideation, there were no delusions reported or noted, he denied auditory or visual hallucinations. Attention and concentration are improving and memory was more reliable, but none were formally tested. He is alert and oriented to person and place. Insight and judgment limited and impulse control impaired. Vitals/I&O/Wt Last Vital Signs Temp 98.9 F 05/02/23 21:53 Pulse 77 05/03/23 06:00 Resp 16 05/03/23 06:00 BP 159/97 05/03/23 06:00 Pulse Ox 96 05/03/23 06:00 O2 Del Method Room Air 05/03/23 06:00 Data NPU 04/30/23 16:05 04/30/23 16:05 A&P Assessment and plan (1) Acute psychosis: (2) History of esophageal varices: (3) Methamphetamine use disorder, severe: (4) Withdrawal from methamphetamine: Plan This is a 52-year-old white male with a long history of addiction and distant [facility] treatment who presents barely much more cogent than yesterday having had a positive UDS for amphetamines and cannabis having presented to the emergency department on a 96-hour hold secondary to psychosis. 1. Continue current medication. 2. Discontinue one-to-one observation. Start every 15 minute checks for safety. 3. Encourage individual, group and milieu therapies. 4. Encourage sober living treatment after discharge at the highest level of care to which he is willing to commit. Involuntary Hold Information 96 Hour Hold: 96 Hour Involuntary Admission: Yes 96 Hour Hold Ending Date: 05/06/23 96 Hour Hold Ending Time: 15:11 Attestations NPU Medical Necessity Statement*: Inpatient hospitalization is medically necessary and the clinically appropriate intervention at this time. We will monitor medications and make changes as indicated. Likely length of stay 3-5 days. Coding Level of Care Code Acute Code for Chg Fwd Diagnoses Acute psychosis F23 History of esophageal varices Z87.19 Methamphetamine use disorder, severe F15.20 Withdrawal from methamphetamine F15.93
--- NOTE | 2023-05-03 09:24 | PC.NURSE ---
patient remains 1:1. pt currently denies si/hi/ah/vh. pt states im feeling confused about what happened. pt was unable to answer where he was or what day it was. pt is oriented to person. this nurse explained where pt is and what day it is. pt currently denies any further needs at this time.
[2023-05-03] MEDS: calcium carbonate 500 mg Chew Tablet 1000 MG PO ×2 (12:31→23:55)
[2023-05-03 14:00] VITALS: BP 158/90; PULSE 67; RESP 16; TEMP 36.6; O2SAT 96
[2023-05-03] MEDS: acetaminophen 325 mg Tablet 650 MG PO ×2 (16:07→23:55)
[2023-05-03 21:46] VITALS: BP 154/95; PULSE 78; RESP 18; TEMP 36.9; O2SAT 98
[2023-05-03] MEDS: trazodone 50 mg Tablet PO (23:55)
[2023-05-04 06:00] VITALS: BP 152/97; PULSE 91; RESP 16; O2SAT 95
[2023-05-04] MEDS: calcium carbonate 500 mg Chew Tablet 1000 MG PO ×2 (11:28→16:32)
[2023-05-04 14:00] VITALS: BP 148/86; PULSE 80; RESP 16; TEMP 36.6; O2SAT 91
--- NOTE | 2023-05-04 17:58 | P.NPUPN_ITS ---
Subjective NPU Subjective: Patient presented today reporting that he is doing okay. He was once again lying in bed about about him trying to get off of the active to help feeling better. We discussed the treatment team returning tomorrow to start to get a sense of what his plan is going to be moving forward. He seemed to be still quite ambivalent about his addiction and treatment. Mental Status Exam MSE Comments: This is a well-nourished well-developed white male in hospital scrubs with limited grooming and improved eye contact. No abnormal movements except for improving psychomotor retardation. More cooperative with exam in mild distress. Speech was limited with decreased rate and volume. Mood described as okay, affect brighter/more active. Thought process linear. Thought content: Patient denied suicidal or homicidal ideation, there were no delusions reported or noted, he denied auditory or visual hallucinations. Attention and concentration are improving and memory was more reliable, but none were formally tested. He is alert and oriented to person and place. Insight and judgment limited and i mpulse control impaired. Vitals/I&O/Wt Last Vital Signs Temp 98.4 F 05/04/23 20:49 Pulse 76 05/04/23 20:49 Resp 18 05/04/23 20:49 BP 164/97 05/04/23 20:49 Pulse Ox 97 05/04/23 20:49 O2 Del Method Room Air 05/04/23 20:49 Weight last 48 hrs Weight 79.038 kg Data NPU 04/30/23 16:05 04/30/23 16:05 A&P Assessment and plan (1) Acute psychosis: (2) History of esophageal varices: (3) Methamphetamine use disorder, severe: (4) Withdrawal from methamphetamine: Plan This is a 52-year-old white male with a long history of addiction and distant [facility] treatment who presents barely much more cogent than yesterday having had a positive UDS for amphetamines and cannabis having presented to the emergency department on a 96-hour hold secondary to psychosis. 1. Continue current medication. 2. Discontinue one-to-one observation. Start every 15 minute checks for safety. 3. Encourage individual, group and milieu therapies. 4. Encourage sober living treatment after discharge at the highest level of care to which he is willing to commit. Involuntary Hold Information 96 Hour Hold: 96 Hour Involuntary Admission: Yes 96 Hour Hold Ending Date: 05/06/23 96 Hour Hold Ending Time: 15:11 Attestations NPU Medical Necessity Statement*: Inpatient hospitalization is medically necessary and the clinically appropriate intervention at this time. We will monitor medications and make changes as indicated. Likely length of stay 2-4 days. Coding Level of Care Code Acute Code for Chg Fwd Diagnoses Acute psychosis F23 History of esophageal varices Z87.19 Methamphetamine use disorder, severe F15.20 Withdrawal from methamphetamine F15.93
--- NOTE | 2023-05-04 20:25 | PC.NURSE ---
PT STATES HE IS HAVING SEVERE INDIGESTION DUE TO MY LIVER FAILURE. PT STATES HE HAS TAKEN TUMS BUT IT IS NOT WORKING. PT EXPRESSES CONCERNS ABOUT HIS THROAT SORES THAT BLEED. PT WAS EDUCATED ON LIVER ENCEPHALOPATHY AND ALCOHOL AND DRUG ABUSE. PT WAS ENCOURAGED TO MOVE FORWARD AND LET HIS BODY HEAL AND NOT TO BE SO HARD ON HIMSELF FOR HIS PAST. PT THANKED NURSE TO SPEAKING TO HIM AND STATES HE FEELS MORE ENCOURAGED. NEW ORDERS WERE RECEIVED FROM DR BENITEZ FOR MAALOX 30 ML PO Q 4 HOURS PRN INDIGESTION. ALL QUESTIONS WERE ANSWERED AND SUPPORT VOICED.
--- NOTE | 2023-05-04 20:45 | PC.NURSE ---
RESTING IN BED, AROUSES TO VOICE. PT IS REPORTS FEAR AND ANXIETY REGARDING THROAT BLEEDING AND LIVER FAILURE. PT WAS GIVEN EDUCATION AND ENCOURAGED. PT WAS HAPPY TO SPEAK WITH RN AND WAS FEELING ENCOURAGED. PT EDUCATION GIVEN ON MEDICATION OPTIONS FOR INDIGESTION. NEW ORDERS RECEIVED SEE PREVIOUS NOTE. PT REPORTS TUMS NOT WORKING. PT DENIES SI/HI AND AVH AT THIS TIME. DOES REPORT PAIN IN LIVER 12/23 THAT IS CONSTANT. PT STATES HE IS PRETTY USPSET HOW I TREATED MY BODY AND NOW I'M DYING, I DON'T WANT TO BUT I GUESS THATS WHAT HAPPENS WHEN YOU BEAT YOUR BODY UP. PT WAS ENCOURAGED NOT TO BE HARD ON HIMSELF THAT WE ALL MAKE MISTAKES AND NOW HE CAN MOVE FORWARD AND MAKE BETTER DECISIONS. PT IS ENCOURAGED TO GO TO GROUP TOMORROW AND POSSIBLY LEARN COPING SKILLS THAT WILL HELP HIM IN LIFE. PT STATES I'M EXCITED NOW THAT WE TALKED I FEEL BETTER. ALL QUESTIONS WERE ANSWERED AND SUPPORT VOICED. REQUESTS ANXIETY AND SLEEP MEDICATIONS. THIS RN WILL ADMINISTER TRAZODONE 50 MG FOR SLEEP AND VISTARIL 50 MG FOR ANXIETY.
[2023-05-04 20:49] VITALS: BP 164/97; PULSE 76; RESP 18; TEMP 36.9; O2SAT 97
[2023-05-04] MEDS: trazodone 50 mg Tablet PO (20:52)
[2023-05-04] MEDS: hyDROXYzine 25 mg Capsule 50 MG PO (20:52)
[2023-05-04] MEDS: alum-mag-hydroxide-sime 30 mL UDC PO (20:52)
[2023-05-05] MEDS: alum-mag-hydroxide-sime 30 mL UDC PO ×3 (01:09→21:54)
[2023-05-05 14:00] VITALS: BP 125/76; PULSE 76; RESP 16; TEMP 36.9; O2SAT 97
[2023-05-05] MEDS: calcium carbonate 500 mg Chew Tablet 1000 MG PO (14:49)
--- NOTE | 2023-05-05 14:50 | PC.NURSE ---
PRN TUMS 1,000 MG CHEWABLE TABLET GIVEN PO PER PT C/O HEARTBURN
--- NOTE | 2023-05-05 18:38 | W.PM.NPUPNS ---
Subjective NPU Subjective: Patient presented today reporting that he is doing a little better. He reports that they have signed up for [facility] and he is committed to a plan to going to rehab. We discussed however concerns related to the timeline for [facility] to have an opening and there would need to be some alternative disposition if they are not can have a bed in a few days. We agreed we would work with the social work team in the morning to crystallize that secondary option. Mental Status Exam MSE Comments: This is a well-nourished well-developed white male in hospital scrubs with limited grooming and improved eye contact. No abnormal movements except for improving psychomotor retardation. More cooperative with exam in mild distress. Speech was limited with decreased rate and volume. Mood described as okay, affect brighter/more active. Thought process linear. Thought content: Patient denied suicidal or homicidal ideation, there were no delusions reported or noted, he denied auditory or visual hallucinations. Attention and concentration are improving and memory was more reliable, but none were formally tested. He is alert and oriented to person and place. Insight and judgment limited and impulse control impaired. Vitals/I&O/Wt Last Vital Signs Temp 98.1 F 05/05/23 21:42 Pulse 83 05/05/23 21:42 Resp 18 05/05/23 21:42 BP 127/85 05/05/23 21:42 Pulse Ox 98 05/05/23 21:42 O2 Del Method Room Air 05/05/23 21:42 Weight last 48 hrs Weight 79.038 kg Data NPU 04/30/23 16:05 04/30/23 16:05 A&P Assessment and plan (1) Acute psychosis: (2) History of esophageal varices: (3) Methamphetamine use disorder, severe: (4) Withdrawal from methamphetamine: Plan This is a 52-year-old white male with a long history of addiction and distant past mental health treatment who presents barely much more cogent than yesterday having had a positive UDS for amphetamines and cannabis having presented to the emergency department on a 96-hour hold secondary to psychosis. 1. Continue current medication. 2. Discontinue one-to-one observation. Started every 15 minute checks for safety. 3. Encourage individual, group and milieu therapies. 4. Encourage sober living treatment after discharge at the highest level of care to which he is willing to commit. Involuntary Hold Information 96 Hour Hold: 96 Hour Involuntary Admission: Yes 96 Hour Hold Ending Date: 05/06/23 96 Hour Hold Ending Time: 15:11 Attestations NPU Medical Necessity Statement*: Inpatient hospitalization is medically necessary and the clinically appropriate intervention at this time. We will monitor medications and make changes as indicated. Likely length of stay 1-3 days. Coding Level of Care Code Acute Code for Chg Fwd Diagnoses Acute psychosis F23 History of esophageal varices Z87.19 Methamphetamine use disorder, severe F15.20 Withdrawal from methamphetamine F15.93
[2023-05-05 21:42] VITALS: BP 127/85; PULSE 83; RESP 18; TEMP 36.7; O2SAT 98
[2023-05-06] MEDS: calcium carbonate 500 mg Chew Tablet 1000 MG PO ×3 (00:34→21:28)
[2023-05-06] MEDS: trazodone 50 mg Tablet PO ×2 (01:14→21:28)
[2023-05-06] MEDS: OLANZapine 5 mg ODT PO (02:53)
[2023-05-06 05:53] VITALS: PULSE 16
[2023-05-06] MEDS: alum-mag-hydroxide-sime 30 mL UDC PO ×2 (08:33→14:36)
[2023-05-06] MEDS: ibuprofen 600 mg Tablet PO (08:33)
[2023-05-06 14:00] VITALS: RESP 16
--- NOTE | 2023-05-06 17:13 | P.NPUPN_ITS ---
Subjective NPU Subjective: Patient presents today continuing to report his work with social work team for sober living placement is fruitful. We discussed the likelihood that he would need to discharge in the next day or 2 and await the bed. He reports that he was referred to stay but he does have his own place and does report today that he feels like he can stay sober while he waits. He reports that he has no liset erlinda to use but we talked about the obstacles that we will need him to his sobriety while he is awaiting the bed. Mental Status Exam MSE Comments: This is a well-nourished well-developed white male in hospital scrubs with limited grooming and improved eye contact. No abnormal movements except for improving psychomotor retardation. More cooperative with exam in mild distress. Speech was limited with decreased rate and volume. Mood described as okay, affect brighter/more active. Thought process linear. Thought content: Patient denied suicidal or homicidal ideation, there were no delusions reported or noted, he denied auditory or visual hallucinations. Attention and concentration are improving and memory was more reliable, but none were formally tested. He is alert and oriented to person and place. Insight and judgment limited and impulse control impaired. Vitals/I&O/Wt Last Vital Signs Temp 98.1 F 05/05/23 21:42 Pulse 83 05/06/23 22:00 Resp 17 05/06/23 22:00 BP 108/73 05/06/23 22:00 Pulse Ox 96 05/06/23 22:00 O2 Del Method Room Air 05/06/23 22:00 Data NPU 04/30/23 16:05 04/30/23 16:05 A&P Assessment and plan (1) Acute psychosis: (2) History of esophageal varices: (3) Methamphetamine use disorder, severe: (4) Withdrawal from methamphetamine: Plan This is a 52-year-old white male with a long history of addiction and distant past mental health treatment who presents barely much more cogent than yesterday having had a positive UDS for amphetamines and cannabis having presented to the emergency department on a 96-hour hold secondary to psychosis. 1. Continue current medication. 2. Discontinue one-to-one observation. Started every 15 minute checks for safety. 3. Encourage individual, group and milieu therapies. 4. Encourage sober living treatment after discharge at the highest level of care to which he is willing to commit. Involuntary Hold Information 96 Hour Hold: 96 Hour Involuntary Admission: Yes 96 Hour Hold Ending Date: 05/06/23 96 Hour Hold Ending Time: 15:11 Attestations NPU Medical Necessity Statement*: Inpatient hospitalization is medically necessary and the clinically appropriate intervention at this time. We will monitor medications and make changes as indicated. Likely length of stay 1-3 days. Coding Level of Care Code Acute Code for Chg Fwd Diagnoses Acute psychosis F23 History of esophageal varices Z87.19 Methamphetamine use disorder, severe F15.20 Withdrawal from methamphetamine F15.93
[2023-05-06 22:00] VITALS: BP 108/73; PULSE 83; RESP 17; O2SAT 96
[2023-05-07] MEDS: acetaminophen 325 mg Tablet 650 MG PO (04:06)
[2023-05-07 06:00] VITALS: BP 115/79; PULSE 91; RESP 18; O2SAT 94
[2023-05-07] MEDS: alum-mag-hydroxide-sime 30 mL UDC PO ×2 (09:18→13:16)
[2023-05-07] MEDS: calcium carbonate 500 mg Chew Tablet 1000 MG PO (13:21)
--- NOTE | 2023-05-07 13:21 | P.NPUDS_ITS ---
Diagnoses at Discharge Discharge Diagnosis (1) Acute psychosis: Status: Resolved (2) History of esophageal varices: Status: Acute Permanent problem details: 06/2022 (3) Methamphetamine use disorder, severe: Status: Acute (4) Withdrawal from methamphetamine: Status: Resolved Reason for Visit Reason for Visit: 96 Hold Brief History: Siva Flores is a 52 year old male who presented to the emergency department with the following report: Chief Complaint: Psychiatric Symptoms Stated Complaint: 96 Hold Time Seen by Provider: 04/30/23 15:45 History of Present Illness: Patient was brought in by the police for 96-hour hold. Paperwork is on chart. Police at his patient is no longer in their custody. Paperwork in place reports patient was acting weird making statements that people are trying to kill him a nd shoot him. He was crawling on the ground like a warm. He was having a fight with his mattress and saying people were there trying to harm him. There were no people there. Patient does have a history of hepatic encephalopathy. These bizarre behavior started today. He was admitted to the neuropsychiatric unit for definitive treatment of these issues. He presents today unable to be evaluated secondary to his level of lethargy. His presentation is consistent with a positive UDS for methamphetamines but he does have a history of significant drug use. He has had multiple emergency room visits but no admissions. In the last year and a half he has had positive drug screens for cannabis, amphetamines and benzodiazepines. He has had positive BALs during that period 1 as high as 448. This UDS was positive for amphetamine and cannabis. He did respond to his name being jailed barely but was very lethargic and not a source of information for an active interview. We will get collateral information and monitor closely. Hospital Course Hospital Course He slowly acclimated to the individual, group and milieu therapies provided.? He presented with significant lethargy most likely secondary to withdrawal from methamphetamine. He spent a few days with very limited cognitive clarity and significant cognitive and psychomotor slowing. Once he got through withdrawal he slowly improved cognitively but ultimately became very focused on the need to discontinue his drug use and avoid repeating the situation that brought him to the hospital. We did not start any medications other than trial 50 mg p.o. nightly to help with sleep. He worked with the social work team to develop a plan for sober living treatment which involved [facility]. He ultimately felt confident that he could manage his sobriety awaiting his bed date. He worked with the social work team to arrange for outpatient resources and follow-up appointments.? He had significant improvement and was able to contract for safety outside of the hospital prior to discharge.? During the hospitalization, patient had routine laboratory studies which were within normal limits except for few outliers.? Additionally there was a general medical evaluation which was also within normal limits and revealed no new acute processes. At the time of discharge, she denied psychosis or lethality.? Mood and anxiety were well managed.? Patient endorsed a plan to avoid all drugs of abuse and follow-up with the aftercare recommendations of the treatment team.? Patient was evaluated and deemed to be absent credible lethality, and had achieved the maximum benefit from an inpatient hospitalization, so was discharged. Involuntary Hold Information 96 Hour Hold: 96 Hour Involuntary Admission: Yes 96 Hour Hold Ending Date: 05/06/23 96 Hour Hold Ending Time: 15:11 Mental Status Exam MSE Comments: This is a well-nourished well-developed white male in hospital scrubs with limited grooming and improved eye contact. No abnormal movements except for improving mild psychomotor retardation. More cooperative with exam in no acute distress. Speech was more normal rate and volume. Mood described as better, affect congruent. Thought process linear. Thought content: Patient denied suicidal or homicidal ideation, there were no delusions reported or noted, he denied auditory or visual hallucinations. Attention and concentration are improving and memory was more reliable, but none were formally tested. He is alert and oriented to person and place. Insight and judgment limited and impulse control impaired, but improving. Discharge Data Studies Completed and Pending: Completed Studies During Hospitalization Category Date Time Status CT cervical spin wo con* [id number] Stat Cat Scan 05/01/23 22:[address] head wo con* [id number] Stat Cat Scan 05/01/23 22:42 Completed XR chest 1V [facility] ble [id number] Stat Exams 04/30/23 15:57 Completed XR wrist LT min 3 V* [id number] Stat Exams 05/01/23 20:07 Completed Radiology Impressions Chest X-Ray 04/30/23 15:57 IMPRESSION: No acute findings. Wrist X-Ray 05/01/23 20:07 IMPRESSION: No acute findings. Head CT 05/01/23 22:42 IMPRESSION: 1. Negative for intracranial hemorrhage or mass effect. 2. Moderate diffuse white matter disease likely reflecting chronic microvascular ischemic changes. 3. Partially visualized is an apparent lipoma in the left upper posterior neck. Cervical Spine CT 05/01/23 22:47 IMPRESSION: 1. C5-C6 severe disc space narrowing with productive degenerative endplate changes. 2. Left upper posterior neck probable lipoma. Laboratory Results WBC 7.7 10^3/uL (4.0- 10.0) 04/30/23 16:05 RBC 3.87 10^6/uL (4.1 -5.3) L 04/30/23 16:05 Hgb 12.1 g/dL (11.7-1 6.6) 04/30/23 16:05 Hct 36.0 % (42.0-52.0 ) L 04/30/23 16:05 MCV 93.0 fl (80-94) 04/30/23 16:05 MCH 31.3 pg (28.0-34. 0) 04/30/23 16:05 MCHC 33.6 g/dL (30.0-3 6.0) 04/30/23 16:05 RDW 15.1 % (12.1-15.1 ) 04/30/23 16:05 Plt Count 132 10^3/cmm (130 -400) 04/30/23 16:05 MPV 12.5 fL (7.4-10.4 ) H 04/30/23 16:05 Neut % (Auto) 62.4 % 04/30/23 16:05 Lymph % (Auto) 21.2 % 04/30/23 16:05 [place] % (Auto) 14.6 % 04/30/23 16:05 Eos % (Auto) 1.2 % 04/30/23 16:05 Baso % (Auto) 0.3 % 04/30/23 16:05 Neut # (Auto) 4.84 10^3/uL (1.8 -7.7) 04/30/23 16:05 Lymph # (Auto) 1.6 10^3/uL (0.8- 4.8) 04/30/23 16:05 [place] # (Auto) 1.1 10^3/uL (0.2- 0.9) H 04/30/23 16:05 Eos # (Auto) 0.1 10^3/uL (0.0- 0.8) 04/30/23 16:05 Baso # (Auto) 0.0 10^3/uL (0.0- 0.1) 04/30/23 16:05 Nucleated RBC % (a uto) 0 % 04/30/23 16:05 Nucleated RBCs # 0.0 /100WBC 04/30/23 16:05 Sodium 135 mmol/L (136-1 45) L 04/30/23 16:05 Potassium 3.3 mmol/L (3.5-5 .1) L 04/30/23 16:05 Chloride 98 mmol/L (98-107 ) 04/30/23 16:05 Carbon Dioxide 24 mmol/L (22-29) 04/30/23 16:05 Anion Gap 16.3 (5-19) 04/30/23 16:05 BUN 30 mg/dL (6-20) H 04/30/23 16:05 Creatinine 1.2 mg/dL (0.7-1. 2) 04/30/23 16:05 GFR Calculation 63.6 mL/min (90-1 30) L 04/30/23 16:05 Glucose 91 mg/dL (65-115) 04/30/23 16:05 Calculated Osmolal ity 286 mOsm/kg (285- 295) 04/30/23 16:05 Calcium 9.3 mg/dL (8.5-10 .5) 04/30/23 16:05 Total Bilirubin 3.5 mg/dL (0.15-1 .2) H 04/30/23 16:05 AST 126 U/L (0-40) H 04/30/23 16:05 ALT 39 U/L (0-41) 04/30/23 16:05 Alkaline Phosphata se 90 U/L (40-130) 04/30/23 16:05 Ammonia 38 umol/L (16-60) 04/30/23 16:05 Total Protein 6.7 g/dL (6.6-8.7 ) 04/30/23 16:05 Albumin 3.3 g/dL (3.5-5.2 ) L 04/30/23 16:05 Globulin 3.4 g/dL (1.3-4.6 ) 04/30/23 16:05 Urine Color Simi (Yellow) 04/30/23 16:58 Urine Appearance Clear (CLEAR) 04/30/23 16:58 Urine pH 5 (5-7) 04/30/23 16:58 Ur Specific Gravit y 1.020 (1.005-1.0 30) 04/30/23 16:58 Urine Protein Neg (Negative) 04/30/23 16:58 Urine Glucose (UA) Norm (Normal) 04/30/23 16:58 Urine Ketones 1+ (Negative) H 04/30/23 16:58 Urine Blood 2+ (Negative) H 04/30/23 16:58 Urine Nitrate Negative (Negati ve) 04/30/23 16:58 Urine Bilirubin Neg (Negative) 04/30/23 16:58 Urine Urobilinogen 4 mg/dL (Negative ) H 04/30/23 16:58 Ur Leukocyte Theresa ase 1+ (Negative) H 04/30/23 16:58 Urine RBC 0-4 /hpf (0-2) H 04/30/23 16:58 Urine WBC 10-15 /hpf (0-5) H 04/30/23 16:58 Ur Squamous Epith Cells 5-10 /hpf (0-5) H 04/30/23 16:58 Amorphous Sediment Not Reportable 04/30/23 16:58 Urine Bacteria None /hpf (NONE) 04/30/23 16:58 Urine Mucus 3+ /hpf 04/30/23 16:58 Salicylates < 0.3 mg/dL (3-10 ) L 04/30/23 16:05 Urine Opiates Scre en Negative ng/mL (N egative) 04/30/23 16:58 Acetaminophen < 5.0 ug/mL (10-3 0) L 04/30/23 16:05 Ur Barbiturates Sc reen Negative ng/mL (N egative) 04/30/23 16:58 Ur Phencyclidine S crn Negative ng/mL (N egative) 04/30/23 16:58 Ur Amphetamines Sc reen Positive ng/mL (N egative) H 04/30/23 16:58 U Benzodiazepines Scrn Negative ng/mL (N egative) 04/30/23 16:58 Urine Cocaine Scre en Negative ng/mL (N egative) 04/30/23 16:58 U Marijuana (THC) Screen Positive ng/mL (N egative) H 04/30/23 16:58 Ethyl Alcohol < 10 mg/dL (0-10) 04/30/23 16:05 Influenza Type A A g Negative (Negati ve) 04/30/23 16:09 Influenza Type B A g Negative (Negati ve) 04/30/23 16:09 SARS-CoV-2 Ag (Rap id) negative (Negati ve) 04/30/23 16:09 Vitals: Last Vital Signs Temp 98.1 F 05/05/23 21:42 Pulse 91 05/07/23 06:00 Resp 18 05/07/23 06:00 BP 115/79 05/07/23 06:00 Pulse Ox 94 05/07/23 06:00 O2 Del Method Room Air 05/07/23 06:00 Discharge Plan Discharge Patient Disposition: Home Condition: Stable Prescriptions: New trazodone 50 mg Tablet 50 mg PO BEDTIME PRN (Reason: Sleep) 30 Days Qty: 30 1RF No Action Unable to Assess Discharge Orders: Discharge Order (Routine); Ordered 05/07/23 Ordered By: Allen Argueta Referrals: [facility] [Other] - 05/28/23 1:00 pm (Addmission for inpatient. ) [facility] [Outside] - 05/12/23 8:30 am (Initial apointment set 05/12/23 check in at 08:30 am. ) Derrek Amaro MD [Primary Care Provider] - Discharge Diet: Regular Discharge Activity: Resume usual activity Patient Instructions: Trazodone (By mouth), Methamphetamine Abuse, Acute Delirium (GEN), Methamphetamine Use Disorder (GEN), Opioid Safety Discharge Attestations NPU Time Spent in Discharge Care*: less than 30 min Specific Discharge Activities: Specific discharge activities: educating patient, discussing with patient case manager/social workers/dc planners, documenting/other paperwork and evaluating patient/reviewing data Status at Discharge: Cognitive status at discharge: mildly impaired cognition , Behavioral status at discharge: cooperative , Coding Level of Care Code Acute Chg FW DC note Diagnoses Acute psychosis F23 History of esophageal varices Z87.19 Methamphetamine use disorder, severe F15.20 Withdrawal from methamphetamine F15.93
[2023-05-07 13:30] VITALS: BP 115/79; PULSE 91; RESP 18; O2SAT 94
== END 2023-05-07 13:55 | disposition home or self-care (01) | DRG 897 ==
LOC: ER 17:08 → NP 17:26
PROVIDERS: Admitting Provider Psychiatry & Neurology Psychiatry; Emergency Provider Emergency Medicine; PCP Family Medicine; Visit Provider Psychiatry & Neurology Psychiatry
DX: F15.150 Other stimulant abuse with stimulant-induced psychotic disorder with delusions (principal); F17.210 Nicotine dependence, cigarettes, uncomplicated; W19.XXXA Unspecified fall, initial encounter; R22.1 Localized swelling, mass and lump, neck; K76.82 Hepatic encephalopathy
CPT/HCPCS: 70450; 71045; 72125; 73110; 80053; 80306; 80307; 81001; 82140; 85025; 87426; 87804; 93005; 97110; 97150; 97161; 97165; 99238; 99285; Q0163

== ENCOUNTER 2023-07-15 11:11 | Emergency (ER) | payer MEDICAID, SELFPAY ==
[2023-07-15 11:32] VITALS: BP 141/69; PULSE 74; RESP 18; TEMP 36.8; O2SAT 99; BMI 25.0
[2023-07-15 11:38] LABS: Basophils % 0.6 %; Eosinophils % 0.4 %; Hematocrit 37.6 % (37-53); Lymphocytes # 1.1 10^3/uL (0.8-4.8); Lymphocytes % 21.2 %; Mean Corpuscular HGB Conc 33.8 g/dL (30-55); Mean Corpuscular Hemoglobin 32.7 pg (27-33); Mean Corpuscular Volume 96.9 fl (82-101); Mean Platelet Volume 10.8 fL (7.4-10.4); Monocytes # 0.6 10^3/uL (0.2-0.9); Monocytes % 11.5 %; Neutrophils # 3.39 10^3/uL (1.8-7.7); Neutrophils % 65.9 %; Nucleated Red Blood Cells % 0 %; Platelet Count 159 10^3/cmm (157-399); Red Blood Count 3.88 10^6/uL (3.85-5.65); Red Cell Distribution Width 13.8 % (12.1-15.1); White Blood Count 5.14 10^3/uL (3.29-11.43)
[2023-07-15 11:56] LABS: Alanine Aminotransferase 37 U/L (0-41); Albumin Level 3.7 g/dL (3.5-5.2); Alkaline Phosphatase 106 U/L (40-130); Anion Gap 15.3 (5-19); Aspartate Amino Transferase 98 U/L (0-40); Blood Urea Nitrogen 15 mg/dL (6-20); Calcium 9.1 mg/dL (8.5-10.5); Carbon Dioxide 24 mmol/L (22-29); Chloride 97 mmol/L (98-107); Globulin 3.3 g/dL (1.3-4.6); Glomerular Filtration Rate 101.5 mL/min (90-130); Glucose 121 mg/dL (65-115); Lipase 31 U/L (13-60); Osmolality Calculated 278 mOsm/kg (285-295); Potassium 3.3 mmol/L (3.5-5.1); Sodium 133 mmol/L (136-145); Total Bilirubin 2.5 mg/dL (0.15-1.2)
--- NOTE | 2023-07-15 14:03 | ED_ITS ---
HPI - Abdominal Pain General: Chief Complaint: Abdominal Pain Stated Complaint: Abd Pain Time Seen by Provider: 07/15/23 11:22 History of Present Illness: Patient presents to the ER with complaints of liver pain. Patient says he is a chronic alcoholic but he has not drank in the last couple days. Patient states he is homeless and [place] but he was [place]. EMS found the patient alongside the road. Patient's complaints now is his normal right upper quadrant liver pain he is also cold thirsty and hungry. Review of Systems General: Reports: 10 or more systems reviewed and unremarkable except in HPI and below PFSH ED PFSH: Medical History Alcohol abuse Amphetamine abuse Ascites Cirrhosis Elevated d-dimer Elevated INR Hepatitis C antibody positive in blood History of esophageal varices 06/2022 Liver cirrhosis Nodule on liver Portal hypertension Surgical History H/O skin graft No pertinent past surgical history Family History Other Family history unknown Social History Smoking and tobacco/nicotine status: current every day tobacco/nicotine user Alcohol intake: current Physical Exam Const: COMMON NORMALS: no acute distress, average body habitus, patient oriented x3, no limitations, healthy appearing, alert and well nourished HENMT: COMMON NORMALS: normocephalic, atraumatic, hearing grossly normal bilaterally, external ears normal, Normal external nose present, moist oral mucous membranes and oropharynx normal HEAD & SCALP: normocephalic and atraumatic NOSE: Normal external nose present EXTERNAL EAR: Yes external ears normal Neck/C-Spine: COMMON NORMALS: no JVD Chest: COMMONS NORMALS: normal inspection of the chest and normal palpation of entire chest wall Resp: COMMON NORMALS: normal respiratory effort, No retractions, No use of accessory muscles and clear to auscultation bilaterally AUSCULTATION: clear to auscultation bilaterally Cardio: COMMON NORMALS: no JVD, regular rate, regular rhythm, S1 normal heart sound present, S2 normal heart sound present, No gallops present (Cardio), No clicks present (Cardio), No murmurs present (Cardio) and No rub (Cardio) RATE: regular rate RHYTHM: regular rhythm HEART SOUNDS: S1 normal heart sound present and S2 normal heart sound present GI: COMMON NORMALS: Normal to inspection, nondistended, normoactive bowel sounds present, Soft to palpation, No hepatosplenomegaly present and no masses; negative for non-tender (Mildly diffusely tender) PALPATION: Yes Soft to palpation and Yes No hepatosplenomegaly present Neuro: COMMON NORMALS: patient oriented x3 SENSORIUM/ORIENTATION: Yes alert Course Vital Signs: Vital signs: Vital Signs Temperature 98.2 F 07/15/23 11:32 Pulse Rate 74 07/15/23 11:32 Respiratory Rate 18 07/15/23 11:32 Blood Pressure 141/69 07/15/23 11:32 Pulse Oximetry 99 07/15/23 11:32 Oxygen Delivery Me thod Room Air 07/15/23 11:32 MDM - Abdominal Pain Medical Decision Making Patient is a chronic alcoholic with known liver disease. Patient is homeless. Patient complains of chronic abdominal pain and immediately asked for something to eat and drink. Lab work was obtained which showed a stable CBC, metabolic panel showed a low potassium of 3.3, elevated AST of 98 patient was given food and drink which he immediately drank and ate and then went to sleep. Patient was sleeping soundly upon recheck. Patient be discharged to follow-up with his PCP for further evaluation testing.. Differential Diagnosis Likely abdominal pain; Unlikely acute appendicitis, calculus of kidney, constipation, diverticulitis, endometriosis, gastroenteritis, pancreatitis or small bowel obstruction Medical Records I reviewed the patient's medical records. Lab Data I reviewed the patient's lab results. 07/15/23 11:31 07/15/23 11:31 Labs/Radiology: Laboratory Results WBC 5.14 10^3/uL (3.29-11.43) 07/15/23 11:31 RBC 3.88 10^6/uL (3.85-5.65) 07/15/23 11:31 Hgb 12.70 g/dL (11.27-16.99) 07/15/23 11:31 Hct 37.6 % (37-53) 07/15/23 11:31 MCV 96.9 fl (82-101) 07/15/23 11:31 MCH 32.7 pg (27-33) 07/15/23 11: MCHC 33.8 g/dL (30-55) 07/15/23 11: RDW 13.8 % (12.1-15.1) 07/15/23 11:31 Plt Count 159 10^3/cmm (157-399) 07/15/23 11: MPV 10.8 fL (7.4-10.4) H 07/15/23 11:31 Neut % (Auto) 65.9 % 07/15/23 11:31 Lymph % (Auto) 21.2 % 07/15/23 11:31 [place] % (Auto) 11.5 % 07/15/23 11: Eos % (Auto) 0.4 % 07/15/23 11: Baso % (Auto) 0.6 % 07/15/23 11: Neut # (Auto) 3.39 10^3/uL (1.8-7.7) 07/15/23 11: Lymph # (Auto) 1.1 10^3/uL (0.8-4.8) 07/15/23 11:31 [place] # (Auto) 0.6 10^3/uL (0.2-0.9) 07/15/23 11: Eos # (Auto) 0.0 10^3/uL (0.0-0.8) 07/15/23 11:31 Baso # (Auto) 0.0 10^3/uL (0.0-0.1) 07/15/23 11: Nucleated RBC % (auto) 0 % 07/15/23 11: Nucleated RBCs # 0.0 /100WBC 07/15/23 11:31 Sodium 133 mmol/L (136-145) L 07/15/23 11:31 Potassium 3.3 mmol/L (3.5-5.1) L 07/15/23 11: Chloride 97 mmol/L (98-107) L 07/15/23 11:31 Carbon Dioxide 24 mmol/L (22-29) 07/15/23 11:31 Anion Gap 15.3 (5-19) 07/15/23 11:31 BUN 15 mg/dL (6-20) 07/15/23 11:31 Creatinine 0.8 mg/dL (0.7-1.2) 07/15/23 11:31 GFR Calculation 101.5 mL/min (90-130) 07/15/23 11:31 Glucose 121 mg/dL (65-115) H 07/15/23 11:31 Calculated Osmolality 278 mOsm/kg (285-295) L 07/15/23 11:31 Calcium 9.1 mg/dL (8.5-10.5) 07/15/23 11:31 Total Bilirubin 2.5 mg/dL (0.15-1.2) H 07/15/23 11:31 AST 98 U/L (0-40) H 07/15/23 11:31 ALT 37 U/L (0-41) 07/15/23 11:31 Alkaline Phosphatase 106 U/L (40-130) 07/15/23 11:31 Total Protein 7.0 g/dL (6.6-8.7) 07/15/23 11:31 Albumin 3.7 g/dL (3.5-5.2) 07/15/23 11:31 Globulin 3.3 g/dL (1.3-4.6) 07/15/23 11:31 Lipase 31 U/L (13-60) 07/15/23 11:31 No radiology studies performed this visit Discharge Plan Discharge Patient Disposition: Home Clinical Impression: Abdominal pain Qualifiers: Abdominal location: generalized Qualified Code(s): R10.84 - Generalized abdominal pain Condition: Stable Prescriptions: No Action Unable to Assess trazodone 50 mg Tablet 50 mg PO BEDTIME PRN (Reason: Sleep) 30 Days Qty: 30 1RF Discharge Orders: Discharge ED (Routine); Ordered 07/15/23 Ordered By: Jarrell Santos Patient Instructions: Abdominal Pain (ED) Activity Restrictions/Additional Instructions: Please follow-up with your family practice physician in the next 7 to 10 days for further evaluation testing as needed. Coding Level of Care Code ED Telephone Messenger for Lizbeth Tyson
== END 2023-07-15 14:47 | disposition home or self-care (01) ==
PROVIDERS: Physician Assistant; Emergency Provider Emergency Medicine
DX: R10.84 Generalized abdominal pain (principal); Z72.0 Tobacco use; Z86.19 Personal history of other infectious and parasitic diseases; K70.30 Alcoholic cirrhosis of liver without ascites; Z59.00 Homelessness unspecified
CPT/HCPCS: 36415; 80053; 83690; 85025; 99283

== ENCOUNTER 2023-08-09 01:49 | Emergency (ER) | payer MEDICAID, SELFPAY ==
[2023-08-09 01:52] VITALS: BP 141/77; PULSE 93; RESP 16; TEMP 36.8; O2SAT 100
--- NOTE | 2023-08-09 02:00 | XRR_ITS ---
PROCEDURE INFORMATION: Exam: XR Chest Exam date and time: 08/09/2023 2:20 AM Age: 52 years old Clinical indication: Cough TECHNIQUE: Imaging protocol: Radiologic exam of the chest. Views: 1 view. COMPARISON: CR XR chest 1V portable [id number] 04/30/2023 4:04 PM FINDINGS: Lungs: Unremarkable. No consolidation. Pleural spaces: Unremarkable. No pleural effusion. No pneumothorax. Heart/Mediastinum: Unremarkable. No cardiomegaly. Bones/joints: Unremarkable. XR/XR chest 1V portable [id number] IMPRESSION: No acute findings.
--- NOTE | 2023-08-09 02:03 | ED_ITS ---
HPI - Altered Mental Status General: Chief Complaint: Altered Mental Status Stated Complaint: fever, weakness, confusion Time Seen by Provider: 08/09/23 01:51 Source: patient Mode of arrival: ambulatory Limitations: no limitations History of Present Illness: 52-year-old male with history of drug abuse along with alcohol abuse and hepatic encephalopathy. He states he has not taken his lactulose last 5 days and is concerned that he is had some slight confusion. He states just has not been feeling well denies any pains anywhere denies any vomiting or diarrhea he is answering all my questions appropriately here. Associated symptoms: Deny depression Review of Systems Const: Denies: fever(s), chills, body aches or change in appetite Eyes: Denies: blurry vision or eye discomfort ENMT: Denies: throat pain or dental pain Card: Denies: chest pain Resp: Denies: dyspnea GI: Denies: abdominal pain, nausea, vomiting or diarrhea Musc: Denies: neck pain or back pain Skin/Breast: Denies: rash Neuro: Reports: confusion; Denies: headache(s) Psych: Denies: depression PFSH ED PFSH: Medical History Alcohol abuse Amphetamine abuse Ascites Cirrhosis Elevated d-dimer Elevated INR Hepatitis C antibody positive in blood History of esophageal varices 06/2022 Liver cirrhosis Nodule on liver Portal hypertension Surgical History H/O skin graft No pertinent past surgical history Family History Other Family history unknown Social History Smoking and tobacco/nicotine status: current every day tobacco/nicotine user Alcohol intake: current Physical Exam Const: COMMON NORMALS: patient oriented x3 HENMT: COMMON NORMALS: normocephalic and atraumatic HEAD & SCALP: normocephalic and atraumatic Eye: COMMON NORMALS: conjunctivae normal CONJUNCTIVA: Yes conjunctivae normal Neck/C-Spine: COMMON NORMALS: supple Chest: COMMONS NORMALS: normal inspection of the chest Resp: COMMON NORMALS: normal respiratory effort and clear to auscultation bilaterally AUSCULTATION: clear to auscultation bilaterally Cardio: COMMON NORMALS: regular rate and regular rhythm RATE: regular rate RHYTHM: regular rhythm GI: COMMON NORMALS: Normal to inspection, nondistended, normoactive bowel sounds present and non-tender Extremity: COMMON NORMALS: normal to inspection and full ROM Neuro: COMMON NORMALS: patient oriented x3 CRANIAL NERVES: Yes CN normal except as noted SPEECH: speech normal GAIT: Yes Normal gait present Psych: MOOD & AFFECT: No depressed mood Skin: COMMON NORMALS: no rashes or lesions noted GENERAL SKIN EXAM: no rashes or lesions noted Course Vital Signs: Vital signs: Vital Signs Temperature 98.3 F 08/09/23 01:52 Pulse Rate 82 08/09/23 02:30 Respiratory Rate 16 08/09/23 02:30 Blood Pressure 141/76 08/09/23 02:30 Pulse Oximetry 95 08/09/23 02:30 MDM - Altered Mental Status Medical Decision Making Patient presents with complaints of confusion at home he has not had any confusion here has been answering all my questions appropriately does have a mildly elevated ammonia he is to take his lactulose he has no signs of stroke he has been drinking alcohol as well no signs of severe intoxication he is stable for discharge he is to follow-up with PCP and return if worsening Medical Records I reviewed the patient's medical records. Lab Data I reviewed the patient's lab results. 08/09/23 02:25 08/09/23 02:25 Laboratory Results WBC 5.44 10^3/uL (3.29-11.43) 08/09/23 02:25 RBC 3.95 10^6/uL (3.85-5.65) 08/09/23 02:25 Hgb 12.50 g/dL (11.27-16.99) 08/09/23 02:25 Hct 37.5 % (37-53) 08/09/23 02:25 MCV 94.9 fl (82-101) 08/09/23 02:25 MCH 31.6 pg (27-33) 08/09/23 02:25 MCHC 33.3 g/dL (30-55) 08/09/23 02:25 RDW 14.2 % (12.1-15.1) 08/09/23 02:25 Plt Count 210 10^3/cmm (157-399) 08/09/23 02:25 MPV 9.7 fL (7.4-10.4) 08/09/23 02:25 Neut % (Auto) 56.2 % 08/09/23 02:25 Lymph % (Auto) 28.7 % 08/09/23 02:25 [place] % (Auto) 10.3 % 08/09/23 02:25 Eos % (Auto) 3.9 % 08/09/23 02:25 Baso % (Auto) 0.9 % 08/09/23 02:25 Neut # (Auto) 3.06 10^3/uL (1.8-7.7) 08/09/23 02:25 Lymph # (Auto) 1.6 10^3/uL (0.8-4.8) 08/09/23 02:25 [place] # (Auto) 0.6 10^3/uL (0.2-0.9) 08/09/23 02:25 Eos # (Auto) 0.2 10^3/uL (0.0-0.8) 08/09/23 02:25 Baso # (Auto) 0.1 10^3/uL (0.0-0.1) 08/09/23 02:25 Nucleated RBC % (auto) 0 % 08/09/23 02:25 Nucleated RBCs # 0.0 /100WBC 08/09/23 02:25 Sodium 138 mmol/L (136-145) 08/09/23 02:25 Potassium 3.9 mmol/L (3.5-5.1) 08/09/23 02:25 Chloride 101 mmol/L (98-107) 08/09/23 02:25 Carbon Dioxide 26 mmol/L (22-29) 08/09/23 02:25 Anion Gap 14.9 (5-19) 08/09/23 02:25 BUN 8 mg/dL (6-20) 08/09/23 02:25 Creatinine 0.8 mg/dL (0.7-1.2) 08/09/23 02:25 GFR Calculation 101.5 mL/min (90-130) 08/09/23 02:25 Glucose 95 mg/dL (65-115) 08/09/23 02:25 Calculated Osmolality 284 mOsm/kg (285-295) L 08/09/23 02:25 Calcium 9.6 mg/dL (8.5-10.5) 08/09/23 02:25 Total Bilirubin 1.3 mg/dL (0.15-1.2) H 08/09/23 02:25 AST 99 U/L (0-40) H 08/09/23 02:25 ALT 41 U/L (0-41) 08/09/23 02:25 Alkaline Phosphatase 251 U/L (40-130) H 08/09/23 02:25 Ammonia 65 umol/L (16-60) H 08/09/23 02:55 Total Protein 7.5 g/dL (6.6-8.7) 08/09/23 02:25 Albumin 3.8 g/dL (3.5-5.2) 08/09/23 02:25 Globulin 3.7 g/dL (1.3-4.6) 08/09/23 02:25 Ethyl Alcohol 83 mg/dL (0-10) H 08/09/23 02:25 SARS-CoV-2 Ag (Rapid) negative (Negative) 08/09/23 02:22 XR interpretation done by ED provider, pending radiology final review Discharge Plan Discharge Patient Disposition: Home Clinical Impression: Alcohol use Condition: Stable Prescriptions: No Action Unable to Assess trazodone 50 mg Tablet 50 mg PO BEDTIME PRN (Reason: Sleep) 30 Days Qty: 30 1RF Discharge Orders: Discharge ED (Routine); Ordered 08/09/23 Ordered By: Filippo Sagastume Referrals: Derrek Amaro MD [Primary Care Provider] - 1-3 days Discharge Diet: Advance as tolerated Discharge Activity: Resume usual activity Patient Instructions: Alcohol Intoxication (ED) Coding Level of Care Code ED Civil Cadd Technician for Lizbeth Tyson
[2023-08-09 02:30] VITALS: BP 141/76; PULSE 82; RESP 16; O2SAT 95
[2023-08-09 02:33] LABS: Basophils # 0.1 10^3/uL (0.0-0.1); Basophils % 0.9 %; Eosinophils # 0.2 10^3/uL (0.0-0.8); Eosinophils % 3.9 %; Hematocrit 37.5 % (37-53); Lymphocytes # 1.6 10^3/uL (0.8-4.8); Lymphocytes % 28.7 %; Mean Corpuscular HGB Conc 33.3 g/dL (30-55); Mean Corpuscular Hemoglobin 31.6 pg (27-33); Mean Corpuscular Volume 94.9 fl (82-101); Mean Platelet Volume 9.7 fL (7.4-10.4); Monocytes # 0.6 10^3/uL (0.2-0.9); Monocytes % 10.3 %; Neutrophils # 3.06 10^3/uL (1.8-7.7); Neutrophils % 56.2 %; Nucleated Red Blood Cells % 0 %; Platelet Count 210 10^3/cmm (157-399); Red Blood Count 3.95 10^6/uL (3.85-5.65); Red Cell Distribution Width 14.2 % (12.1-15.1); White Blood Count 5.44 10^3/uL (3.29-11.43)
[2023-08-09 02:59] LABS: Alanine Aminotransferase 41 U/L (0-41); Albumin Level 3.8 g/dL (3.5-5.2); Alcohol Level 83 mg/dL (0-10); Alkaline Phosphatase 251 U/L (40-130); Anion Gap 14.9 (5-19); Aspartate Amino Transferase 99 U/L (0-40); Blood Urea Nitrogen 8 mg/dL (6-20); Calcium 9.6 mg/dL (8.5-10.5); Carbon Dioxide 26 mmol/L (22-29); Chloride 101 mmol/L (98-107); Globulin 3.7 g/dL (1.3-4.6); Glomerular Filtration Rate 101.5 mL/min (90-130); Glucose 95 mg/dL (65-115); Osmolality Calculated 284 mOsm/kg (285-295); Potassium 3.9 mmol/L (3.5-5.1); Sodium 138 mmol/L (136-145); Total Bilirubin 1.3 mg/dL (0.15-1.2); Total Protein 7.5 g/dL (6.6-8.7)
[2023-08-09 03:08] LABS: SARS Covid-2 Antigen negative (Negative)
[2023-08-09 03:15] LABS: Ammonia 65 umol/L (16-60)
[2023-08-09] MEDS: lactulose oral liq 20 gm/30 mL UDC 30 GM PO (03:39)
[2023-08-09 04:04] VITALS: BP 130/86; PULSE 106; RESP 18; O2SAT 100
== END 2023-08-09 04:05 | disposition home or self-care (01) ==
PROVIDERS: Emergency Provider Emergency Medicine; PCP Family Medicine
DX: F10.90 Alcohol use, unspecified, uncomplicated (principal); Z11.52 Encounter for screening for COVID-19; Z72.0 Tobacco use; Z86.19 Personal history of other infectious and parasitic diseases
CPT/HCPCS: 71045; 80053; 80307; 82140; 85025; 87426; 99284

== ENCOUNTER 2023-08-10 06:16 | Emergency (ER) | payer MEDICAID, SELFPAY ==
[2023-08-10 06:30] VITALS: BP 161/93; PULSE 103; RESP 20; TEMP 36.8; O2SAT 98
--- NOTE | 2023-08-10 06:33 | XRR_ITS ---
PROCEDURE INFORMATION: Exam: XR Chest Exam date and time: 08/10/2023 7:05 AM Age: 52 years old Clinical indication: Cough TECHNIQUE: Imaging protocol: Radiologic exam of the chest. Views: 1 view. COMPARISON: CR (CHEST, ) 08/09/2023 2:20 AM FINDINGS: Lungs: Unremarkable. No consolidation. Pleural spaces: Unremarkable. No pleural effusion. No pneumothorax. Heart/Mediastinum: Unremarkable. No cardiomegaly. Bones/joints: Unremarkable. XR/XR chest 1V portable [id number] IMPRESSION: No acute findings. Stable appearance of the chest compared 08/09/2023.
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
[2023-08-10 06:53] LABS: Basophils % 0.7 %; Eosinophils # 0.2 10^3/uL (0.0-0.8); Eosinophils % 2.8 %; Hematocrit 35.7 % (37-53); Lymphocytes # 1.2 10^3/uL (0.8-4.8); Lymphocytes % 20.9 %; Mean Corpuscular HGB Conc 33.3 g/dL (30-55); Mean Corpuscular Hemoglobin 31.9 pg (27-33); Mean Corpuscular Volume 95.7 fl (82-101); Mean Platelet Volume 9.9 fL (7.4-10.4); Monocytes # 0.7 10^3/uL (0.2-0.9); Monocytes % 12.6 %; Neutrophils # 3.63 10^3/uL (1.8-7.7); Neutrophils % 62.8 %; Nucleated Red Blood Cells % 0 %; Platelet Count 164 10^3/cmm (157-399); Red Blood Count 3.73 10^6/uL (3.85-5.65); Red Cell Distribution Width 14.1 % (12.1-15.1); White Blood Count 5.78 10^3/uL (3.29-11.43)
[2023-08-10 07:11] LABS: Ammonia 76 umol/L (16-60)
[2023-08-10] MEDS: ipratropium-albuterol 3 mL Neb INHALATION (07:16)
[2023-08-10 07:17] VITALS: PULSE 96; RESP 16; O2SAT 95
[2023-08-10 07:18] LABS: Lactic Sepsis W/Reflex 1.2 mmol/L (0.5-2.2)
[2023-08-10 07:23] VITALS: BP 136/108; PULSE 99; O2SAT 95
[2023-08-10 07:24] VITALS: PULSE 98; RESP 16; O2SAT 95
[2023-08-10 07:29] LABS: NT Pro B Type Natriuretic Pept 67 pg/mL (0-125); Procalcitonin 0.06 ng/mL (0-0.5)
[2023-08-10 07:35] LABS: INR 1.16 (0.8-1.2)
[2023-08-10 07:40] LABS: Alanine Aminotransferase 37 U/L (0-41); Albumin Level 3.3 g/dL (3.5-5.2); Alkaline Phosphatase 188 U/L (40-130); Anion Gap 16.6 (5-19); Aspartate Amino Transferase 82 U/L (0-40); Blood Urea Nitrogen 7 mg/dL (6-20); Calcium 8.8 mg/dL (8.5-10.5); Carbon Dioxide 21 mmol/L (22-29); Chloride 98 mmol/L (98-107); Globulin 3.7 g/dL (1.3-4.6); Glomerular Filtration Rate 141.5 mL/min (90-130); Glucose 109 mg/dL (65-115); Osmolality Calculated 273 mOsm/kg (285-295); Potassium 3.6 mmol/L (3.5-5.1); Sodium 132 mmol/L (136-145); Total Bilirubin 1.7 mg/dL (0.15-1.2)
[2023-08-10] MEDS: lactulose oral liq 20 gm/30 mL UDC 30 GM PO (07:41)
[2023-08-10 07:43] VITALS: BP 158/97; PULSE 107; O2SAT 96
[2023-08-10 08:52] VITALS: BP 159/2; PULSE 97; O2SAT 95
== END 2023-08-10 08:53 | disposition home or self-care (01) ==
PROVIDERS: Emergency Provider Internal Medicine; PCP Family Medicine
DX: R60.0 Localized edema (principal); R18.8 Other ascites; Z72.0 Tobacco use; Z86.19 Personal history of other infectious and parasitic diseases
CPT/HCPCS: 36415; 71045; 80053; 82140; 83605; 83880; 84145; 85025; 85610; 94640; 99284

== ENCOUNTER 2023-08-14 23:45 | Emergency (ER) | payer MEDICAID, SELFPAY ==
[2023-08-14 23:52] VITALS: BP 176/92; PULSE 110; RESP 20; TEMP 36.6; O2SAT 100; BMI 24.1
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
[2023-08-15] MEDS: ondansetron 4 MG Tablet PO (00:20)
[2023-08-15] MEDS: lidocaine 2% viscous 15 ML, aluminum-mag hydrox-simethicon 30 ML, sucralfate oral liq 1 GM PO (03:46)
[2023-08-15] MEDS: acetaminophen 500 mg Tablet 1000 MG PO (03:46)
[2023-08-15 05:24] VITALS: PULSE 94; RESP 20; O2SAT 95
== END 2023-08-15 05:32 | disposition home or self-care (01) ==
PROVIDERS: Emergency Provider Emergency Medicine; PCP Family Medicine
DX: R11.2 Nausea with vomiting, unspecified (principal); Z59.00 Homelessness unspecified; Z72.0 Tobacco use; Z86.19 Personal history of other infectious and parasitic diseases
CPT/HCPCS: 99283; Q0162

== ENCOUNTER 2023-11-18 19:21 | Emergency (ER) | payer MEDICAID, SELFPAY ==
[2023-11-18 19:22] VITALS: BP 161/93; PULSE 95; RESP 20; TEMP 36.9; O2SAT 99; BMI 23.7
--- NOTE | 2023-11-18 19:34 | W.ED.ALCOHOL ---
HPI - Alcohol General: Chief Complaint: Alcohol Stated Complaint: BUG BITES Time Seen by Provider: 11/18/23 19:23 Source: EMS Mode of arrival: EMS Limitations: no limitations History of Present Illness: 52-year-old male with history of methamphetamine abuse along with alcohol abuse. States he has had half a pint today he states that he is seeing bugs crawling on his arms and feels some pruritus. He states that it is improved since being here he is intoxicated here but able answer my questions appropriately and ambulate he has no other complaints at this time no SI or HI Associated symptoms: Deny abdominal pain, depression, nausea or vomiting Review of Systems Const: Denies: fever(s), chills, body aches or change in appetite ENMT: Denies: throat pain or dental pain Card: Denies: chest pain Resp: Denies: dyspnea GI: Denies: abdominal pain, nausea, vomiting or diarrhea Musc: Denies: neck pain or back pain Skin/Breast: Reports: rash Psych: Denies: depression PFSH ED PFSH: Medical History History of esophageal varices 06/2022 Cirrhosis Nodule on liver Hepatitis C antibody positive in blood Elevated d-dimer Elevated INR Ascites Portal hypertension Liver cirrhosis Amphetamine abuse Alcohol abuse Surgical History H/O skin graft No pertinent past surgical history Family History Other Family history unknown Social History Smoking and tobacco/nicotine status: current every day tobacco/nicotine user Alcohol intake: current Physical Exam Const: COMMON NORMALS: no acute distress, patient oriented x3 and healthy appearing HENMT: COMMON NORMALS: normocephalic and atraumatic HEAD & SCALP: normocephalic and atraumatic Eye: COMMON NORMALS: Equal, round and reactive pupils present and EOMs intact bilaterally PUPIL: Yes Equal, round and reactive pupils present Neck/C-Spine: COMMON NORMALS: full ROM and supple Chest: COMMONS NORMALS: normal inspection of the chest and normal palpation of entire chest wall Resp: COMMON NORMALS: normal respiratory effort, No retractions, No use of accessory muscles and clear to auscultation bilaterally AUSCULTATION: clear to auscultation bilaterally Cardio: COMMON NORMALS: regular rate, regular rhythm and No murmurs present (Cardio) RATE: regular rate RHYTHM: regular rhythm GI: COMMON NORMALS: Normal to inspection, nondistended, normoactive bowel sounds present, Soft to palpation, non-tender and no masses PALPATION: Yes Soft to palpation Extremity: COMMON NORMALS: normal to inspection and full ROM Neuro: COMMON NORMALS: patient oriented x3, moves all extremities and no focal motor deficits Psych: COMMON NORMALS: mental status grossly normal, Normal thought process present and cooperative THOUGHT PROCESS: Normal thought process present Skin: COMMON NORMALS: no rashes or lesions noted and no wounds GENERAL SKIN EXAM: no rashes or lesions noted Course Vital Signs: Vital signs: Vital Signs Temperature 98.4 F 11/18/23 19:22 Pulse Rate 95 11/18/23 19:22 Respiratory Rate 20 H 11/18/23 19:22 Blood Pressure 161/93 11/18/23 19:22 Pulse Oximetry 99 11/18/23 19:22 Oxygen Delivery Me thod Room Air 11/18/23 19:22 MDM - Alcohol Medical Decision Making Patient presents here with alcohol intoxication also with some bug bites did not see any insects on him currently he is able to ambulate answer my question appropriately. He is not acutely psychotic no SI or HI he is stable for discharge No radiology studies performed this visit Discharge Plan Discharge Patient Disposition: Home Clinical Impression: Alcoholic intoxication, Bug bites Condition: Stable Prescriptions: No Action lactulose 20 gram packet 40 g PO BID Qty: 30 0RF Lasix 20 mg tablet 20 mg PO DAILY PRN (Reason: edema) Qty: 14 0RF ondansetron 4 mg tablet,disintegrating 4 mg PO Q6H PRN (Reason: nausea and vomiting) Qty: 14 0RF Discharge Orders: Discharge ED (Routine); Ordered 11/18/23 Ordered By: Filippo Sagastume Referrals: Derrek Amaro MD [Primary Care Provider] - 4-7 days Discharge Diet: Advance as tolerated Discharge Activity: Resume usual activity Patient Instructions: Insect Bite or Sting (ED), Abuse of Alcohol (ED) Coding Level of Care Code ED Airframe [employer] Powerplant Technician for Lizbeth Tyson
[2023-11-18] MEDS: diphenhydrAMINE 25 mg Capsule PO (19:51)
[2023-11-18 19:59] VITALS: BP 151/97; RESP 16
== END 2023-11-18 20:00 | disposition home or self-care (01) ==
PROVIDERS: Emergency Provider Emergency Medicine; PCP Family Medicine
DX: F10.129 Alcohol abuse with intoxication, unspecified (principal); Z72.0 Tobacco use; Z86.19 Personal history of other infectious and parasitic diseases; W57.XXXA Bitten or stung by nonvenomous insect and other nonvenomous arthropods, initial encounter
CPT/HCPCS: 99283